=== PATIENT | female | born 1950 ===

== ENCOUNTER 2016-07-05 09:02 | Emergency (ER) | payer MEDICARE ==
[2016-07-05 09:02] VITALS: BMI 30.7
[2016-07-05 09:16] VITALS: BP 145/78; PULSE 85; RESP 18; TEMP 98.8; O2SAT 95
--- NOTE | 2016-07-05 10:37 | ED PDOC ---
HPI: Back Time Seen by Provider: 07/05/16 09:14 Chief Complaint (Nursing): Back Pain Chief Complaint (Provider): Back pain History Per: Patient History/Exam Limitations: no limitations Onset/Duration Of Symptoms: Days (1x) Current Symptoms Are (Timing): Still Present Severity: Moderate Previous Symptoms: Back Pain Associated Symptoms: None Exacerbating Factor(s): Movement (getting ice off of her car) Additional Complaint(s): 66 year old female patient with a pertinent medical history of chronic back pain presents to the ED with complaints of right lower back pain that radiates down her right leg. She thinks the exacerbating factor for her back pain was her taking ice off of her car yesterday. She reports taking tromadol 7 hours prior to arrival with minimal relief. She denies having any other associated symptoms including incontinence, numbness, dysuria, hematuria, and any trauma to her back. PMD: Raymond Sosa MD Past Medical History Reviewed: Historical Data, Nursing Documentation, Vital Signs Vital Signs: Last Vital Signs Temp 98.8 F 07/05/16 09:15 Pulse 85 07/05/16 09:15 Resp 18 07/05/16 09:15 BP 145/78 07/05/16 09:15 Pulse Ox 95 07/05/16 09:15 - Medical History PMH: Anxiety, Arthritis, Asthma (bronchial), Back Problems, COPD Denies: Diabetes, HIV, HTN, Chronic Kidney Disease Comment Only: Hyperlipidemia (denies) - Surgical History Surgical History: (x4) - Family History Family History: States: Unknown Family Hx - Social History Alcohol: None Drugs: Denies - Home Medications Home Medications: Ambulatory Orders Medication Instructions Recorded PARoxetine [Paxil] 10 mg PO DAILY #0 tab 03/01/15 ALPRAZolam [Xanax] 0.25 mg PO Q12 PRN #10 tab 09/27/15 Albuterol 0.083% [Albuterol 0.083% 2.5 mg IH Q4 PRN #20 neb 02/24/16 Inhal Mague (2.5 mg/3 ml) UD] Fluticasone/Salmeterol 250/50 1 inh INH Q12 06/15/16 [Advair Diskus 250/50] Azithromycin [Zithromax] 250 mg PO DAILY #6 tab 06/19/16 Methylprednisolone [Medrol Dose 4 mg PO ASDIR #21 mg 06/19/16 Pack (21 tabs)] Promethazine [Phenergan Syrup] 12.5 mg PO Q4H PRN #0 dose 06/19/16 - Allergies Allergies/Adverse Reactions: Allergies Allergy/AdvReac Type Severity Reaction Status Date / Time ceftriaxone sodium Allergy RASH Verified 07/05/16 09:10 [From Rocephin] moxifloxacin HCl Allergy RASH Verified 07/05/16 09:10 [From Avelox] Review of Systems ROS Statement: Except As Marked, All Systems Reviewed And Found Negative Genitourinary Female: Negative for: Dysuria, Incontinence, Hematuria Musculoskeletal: Positive for: Back Pain (lower right, radiates down to right leg) Neurological: Negative for: Numbness Physical Exam - Reviewed Nursing Documentation Reviewed: Yes Vital Signs Reviewed: Yes - Physical Exam Appears: Positive for: Well, Non-toxic, In Acute Distress (mild painful distress ) Head Exam: Positive for: ATRAUMATIC, NORMOCEPHALIC Skin: Positive for: Normal Color, Warm, Dry Eye Exam: Positive for: Normal appearance Back: Positive for: Vertebral Tenderness (right paraspinal tenderness down to right buttocks) Neurologic/Psych: Positive for: Alert, Oriented (3x) - ECG O2 Sat by Pulse Oximetry: 95 (RA) Pulse Ox Interpretation: Normal Medical Decision Making Medical Decision Makin:14 Initial impression: 66 year old female with chronic back pain has back pain. Differential diagnoses include but are not limited to acute on chronic back pain. Initial plan: * XRay lumbar spine complete * flexeril 10mg PO * toradol 15mg IM * reevaluation Of note: patient refuses XRay Scribe Attestation: Documented by Bernie Cheung, acting as a scribe for Marci Garcia MD. Provider Scribe Attestation: All medical record entries made by the Scribe were at my direction and personally dictated by me. I have reviewed the chart and agree that the record accurately reflects my personal performance of the history, physical exam, medical decision making, and the department course for this patient. I have also personally directed, reviewed, and agree with the discharge instructions and disposition.
== END 2016-07-05 11:56 | disposition home or self-care (01) ==
LOC: H.ER 09:02
DX: M54.9 Dorsalgia, unspecified (principal)
CPT/HCPCS: 96372; 99282; J1885

== ENCOUNTER 2016-08-30 10:19 | Emergency (ER) | payer MEDICARE ==
[2016-08-30] MEDS ORDERED: Albuterol-Ipratrop 3 mg / 0.5 (3 ml) UD IH STA ×3 (10:49→11:53)
[2016-08-30] MEDS ORDERED: Albuterol-Ipratrop 3 mg / 0.5 (3 ml) UD ONE ×2 (10:50→11:59)
--- NOTE | 2016-08-30 11:11 | RAD ---
HISTORY: cough COMPARISON: Chest x-ray performed 06/15/16 TECHNIQUE: Chest PA and lateral FINDINGS: Examination limited by habitus. LUNGS: Linear atelectasis, right medial midlung zone. No focal consolidation. Please note that chest x-ray has limited sensitivity for the detection of pulmonary masses. PLEURA: No significant pleural effusion identified. No definite pneumothorax . CARDIOVASCULAR: Heart size appears within normal limits. OSSEOUS STRUCTURES: Degenerative changes. Osseous demineralization. Kyphosis. VISUALIZED UPPER ABDOMEN: Elevation of the right hemidiaphragm. OTHER FINDINGS: None. IMPRESSION: Linear atelectasis, right medial midlung zone.
[2016-08-30 11:20] LABS: ALB/GLOB RATIO 1.3 (1.0-2.1); ALKALINE PHOSPHATASE 76 U/L (38-126); ALT/SGPT 24 U/L (9-52); AST/SGOT 24 U/L (14-36); BILIRUBIN,TOTAL 1.2 mg/dl (0.2-1.3); BLOOD UREA NITROGEN 9 mg/dl (7-17); CALCIUM 9.4 mg/dL (8.4-10.2); CARBON DIOXIDE 25 mmol/L (22-30); CHLORIDE 106 mmol/L (98-107); GFR AFRICAN-AMERICAN > 60; GLUCOSE,RANDOM 94 mg/dL (65-105); POTASSIUM 3.9 MMOL/L (3.6-5.0); SODIUM 140 mmol/l (132-148); TOTAL PROTEIN 7.5 G/DL (6.3-8.2)
--- NOTE | 2016-08-30 11:22 | ED PDOC ---
HPI: SOB/CHF/COPD Time Seen by Provider: 08/30/16 10:34 Chief Complaint (Nursing): Shortness Of Breath Chief Complaint (Provider): Shortness Of Breath History Per: Patient History/Exam Limitations: no limitations Onset/Duration Of Symptoms: Days (x2 days) Current Symptoms Are (Timing): Still Present Additional Complaint(s): 66 y/o female with a past medical history of asthma presents to the emergency department with a complaint of shortness of breath, productive cough, and yellow sputum x2 days. Denies fever. Past Medical History Reviewed: Historical Data, Nursing Documentation, Vital Signs Vital Signs: Last Vital Signs Temp 98.2 F 08/30/16 10:31 Pulse 89 08/30/16 10:31 Resp 22 08/30/16 10:52 BP 145/85 08/30/16 10:31 Pulse Ox 93 L 08/30/16 11:25 - Medical History PMH: Anxiety, Arthritis, Asthma (bronchial), Back Problems, COPD Denies: Diabetes, HIV, HTN, Chronic Kidney Disease Comment Only: Hyperlipidemia (denies) - Surgical History Surgical History: (x4) - Family History Family History: States: Unknown Family Hx - Social History Current smoker - smoking cessation education provided: No Alcohol: None Drugs: Denies - Home Medications Home Medications: Ambulatory Orders Medication Instructions Recorded PARoxetine [Paxil] 10 mg PO DAILY #0 tab 03/01/15 ALPRAZolam [Xanax] 0.25 mg PO Q12 PRN #10 tab 09/27/15 Albuterol 0.083% [Albuterol 0.083% 2.5 mg IH Q4 PRN #20 neb 02/24/16 Inhal Mague (2.5 mg/3 ml) UD] Fluticasone/Salmeterol 250/50 1 inh INH Q12 06/15/16 [Advair Diskus 250/50] Azithromycin [Zithromax] 250 mg PO DAILY #6 tab 06/19/16 Methylprednisolone [Medrol Dose 4 mg PO ASDIR #21 mg 06/19/16 Pack (21 tabs)] Promethazine [Phenergan Syrup] 12.5 mg PO Q4H PRN #0 dose 06/19/16 traMADol [Ultram] 50 mg PO HS PRN #5 tab 07/05/16 Azithromycin [Zithromax] 250 mg PO DAILY #6 tab 08/30/16 predniSONE [predniSONE Tab] 10 mg PO TID #15 tab 08/30/16 - Allergies Allergies/Adverse Reactions: Allergies Allergy/AdvReac Type Severity Reaction Status Date / Time ceftriaxone sodium Allergy RASH Verified 08/30/16 10:49 [From Rocephin] moxifloxacin HCl Allergy RASH Verified 08/30/16 10:49 [From Avelox] Review of Systems ROS Statement: Except As Marked, All Systems Reviewed And Found Negative Constitutional: Negative for: Fever Respiratory: Positive for: Cough (productive), Shortness of Breath, Sputum ( Yellow), Wheezing Physical Exam - Reviewed Nursing Documentation Reviewed: Yes Vital Signs Reviewed: Yes - Physical Exam Appears: Positive for: Non-toxic, No Acute Distress Head Exam: Positive for: ATRAUMATIC, NORMOCEPHALIC Skin: Positive for: Normal Color, Warm, Dry Respiratory: Positive for: Rhonchi (b/l), Wheezing (expiratory wheezing b/l). Negative for: Accessory Muscle Use, Respiratory Distress Neurologic/Psych: Positive for: Alert, Oriented - Laboratory Results Result Diagrams: 08/30/16 11:00 08/30/16 11:00 - ECG O2 Sat by Pulse Oximetry: 93 (RA) Pulse Ox Interpretation: Normal - Progress Re-evaluation Time: 12:51 Condition: Improved Medical Decision Making Medical Decision Making: Time: 10:34 Initial impression: Shortness of breath Initial plan: --COMP Metabolic Panel --CBC w/ differential --Duoneb 3 ml IH --Duoneb 3 ml IH --Methylprednisolone 125 mg IVP --Peak Flow Pre/Post TX --Peak Flow Pre/Post TX --Revaluation Time: 11:10 Chest X-ray FINDINGS: Examination limited by habitus. LUNGS: Linear atelectasis, right medial midlung zone. No focal consolidation. Please note that chest x-ray has limited sensitivity for the detection of pulmonary masses. PLEURA: No significant pleural effusion identified. No definite pneumothorax . CARDIOVASCULAR: Heart size appears within normal limits. OSSEOUS STRUCTURES: Degenerative changes. Osseous demineralization. Kyphosis. VISUALIZED UPPER ABDOMEN: Elevation of the right hemidiaphragm. OTHER FINDINGS: None. IMPRESSION: Linear atelectasis, right medial midlung zone. Scribe Attestation: Documented by Ania Agrawal, acting as a scribe for Samson Flores MD. Provider Scribe Attestation: All medical record entries made by the Scribe were at my direction and personally dictated by me. I have reviewed the chart and agree that the record accurately reflects my personal performance of the history, physical exam, medical decision making, and the department course for this patient. I have also personally directed, reviewed, and agree with the discharge instructions and disposition. Disposition - Clinical Impression Clinical Impression: Bronchitis, Asthma - Patient ED Disposition Is Patient to be Admitted: No - Disposition Referrals: Raymond Sosa MD [Staff Provider] - Disposition: Routine/Home Disposition Time: 12:51 Condition: FAIR Prescriptions: Azithromycin [Zithromax] 250 mg PO DAILY #6 tab predniSONE [predniSONE Tab] 10 mg PO TID #15 tab Instructions: Acute Bronchitis (ED), Bronchospasm (ED)
[2016-08-30 11:23] VITALS: BP 145/85; PULSE 89; RESP 22; TEMP 98.2; BMI 32.3
[2016-08-30 11:24] LABS: BASO % 0.4 % (0.0-2.0); EOS # 0.7 K/uL (0.0-0.7); EOS % 10.2 % (0.0-4.0); HEMATOCRIT 41.8 % (34.0-47.0); LYMPH # 1.8 K/uL (1.0-4.3); LYMPH % 25.3 % (20.0-40.0); MEAN CELL VOLUME 92.8 fl (81.0-99.0); MEAN CORPUSCULAR HEMOGLOBIN 30.9 pg (27.0-31.0); MEAN CORPUSCULAR HGB CONC 33.4 g/dL (33.0-37.0); MEAN PLATELET VOLUME 7.4 fl (7.2-11.7); MONO # 0.6 K/uL (0.0-0.8); MONO % 8.2 % (0.0-10.0); NEUT % 55.9 % (50.0-75.0); NRBC % 0.1 % (0.0-0.0); RED CELL DISTRIBUTION WIDTH 13.8 % (11.5-14.5); WHITE BLOOD COUNT 7.2 K/uL (4.8-10.8)
[2016-08-30 14:02] VITALS: O2SAT 95
--- NOTE | 2016-09-05 07:17 | CARD ---
APPROVED REPORT EKG Measurement Heart [id number] <Conclusion> Normal sinus rhythm Normal ECG
== END 2016-08-30 13:28 | disposition home or self-care (01) ==
LOC: H.ER 10:19
DX: J45.909 Unspecified asthma, uncomplicated (principal); J40 Bronchitis, not specified as acute or chronic; F41.9 Anxiety disorder, unspecified; R05 Cough; J44.9 Chronic obstructive pulmonary disease, unspecified
CPT/HCPCS: 71020; 80053; 85025; 94150; 94640; 96374; 99284; J2930

== ENCOUNTER 2016-09-21 09:08 | Emergency (ER) | payer MEDICARE ==
[2016-09-21 09:15] VITALS: BMI 32.3
[2016-09-21 09:17] VITALS: RESP 18; TEMP 98.2
[2016-09-21] MEDS ORDERED: Albuterol-Ipratrop 3 mg / 0.5 (3 ml) UD IH STA ×2 (09:59→10:06)
[2016-09-21] MEDS ORDERED: Albuterol-Ipratrop 3 mg / 0.5 (3 ml) UD INH STA (09:59)
--- NOTE | 2016-09-21 10:07 | ED PDOC ---
HPI: SOB/CHF/COPD Time Seen by Provider: 09/21/16 09:19 Chief Complaint (Nursing): Shortness Of Breath Chief Complaint (Provider): Dyspnea History Per: Patient History/Exam Limitations: no limitations Onset/Duration Of Symptoms: Days (Thurs) Current Symptoms Are (Timing): Still Present Additional Complaint(s): Cough, congestion, runny nose, nasal congestion. Dyspnea and wheezes. Tried nebulizer but still wheezing. No weakness, chest pain, fever. No abd pain, calf pain, headaches, dizziness. Has asthma and feels the same. Past Medical History Reviewed: Nursing Documentation, Vital Signs Vital Signs: Last Vital Signs Temp 98.2 F 09/21/16 09:16 Pulse 93 H 09/21/16 09:16 Resp 18 09/21/16 09:16 BP 152/87 H 09/21/16 09:16 Pulse Ox 93 L 09/21/16 10:09 - Medical History PMH: Anxiety, Arthritis, Asthma (bronchial), Back Problems Denies: Diabetes, HIV, HTN, Chronic Kidney Disease Comment Only: Hyperlipidemia (denies) - Surgical History Surgical History: (x4) - Family History Family History: States: Unknown Family Hx - Home Medications Home Medications: Ambulatory Orders Medication Instructions Recorded PARoxetine [Paxil] 10 mg PO DAILY #0 tab 03/01/15 ALPRAZolam [Xanax] 0.25 mg PO Q12 PRN #10 tab 09/27/15 Albuterol 0.083% [Albuterol 0.083% 2.5 mg IH Q4 PRN #20 neb 02/24/16 Inhal Mague (2.5 mg/3 ml) UD] Fluticasone/Salmeterol 250/50 1 inh INH Q12 06/15/16 [Advair Diskus 250/50] Azithromycin [Zithromax] 250 mg PO DAILY #6 tab 06/19/16 Methylprednisolone [Medrol Dose 4 mg PO ASDIR #21 mg 06/19/16 Pack (21 tabs)] Promethazine [Phenergan Syrup] 12.5 mg PO Q4H PRN #0 dose 06/19/16 traMADol [Ultram] 50 mg PO HS PRN #5 tab 07/05/16 Azithromycin [Zithromax] 250 mg PO DAILY #6 tab 08/30/16 predniSONE [predniSONE Tab] 10 mg PO TID #15 tab 08/30/16 Albuterol 0.5% [Albuterol 0.5% 2.5 mg IH Q6H PRN #3 neb 09/21/16 Inhal Mague (2.5 mg/0.5 ml) UD] Azithromycin [Zithromax] 250 mg PO DAILY 5 Days 09/21/16 Ibuprofen [Motrin] 600 mg PO TID 7 Days 09/21/16 predniSONE [predniSONE Tab] 20 mg PO BID 5 Days 09/21/16 - Allergies Allergies/Adverse Reactions: Allergies Allergy/AdvReac Type Severity Reaction Status Date / Time ceftriaxone sodium Allergy RASH Verified 09/21/16 09:18 [From Rocephin] moxifloxacin HCl Allergy RASH Verified 09/21/16 09:18 [From Avelox] Review of Systems ROS Statement: Except As Marked, All Systems Reviewed And Found Negative ENT: Positive for: Nose Discharge, Nose Congestion Respiratory: Positive for: Cough, Shortness of Breath, Sputum, Wheezing Physical Exam - Reviewed Nursing Documentation Reviewed: Yes Vital Signs Reviewed: Yes - Physical Exam Appears: Positive for: Well, Non-toxic, No Acute Distress Head Exam: Positive for: ATRAUMATIC, NORMAL INSPECTION, NORMOCEPHALIC Skin: Positive for: Normal Color, Warm, DRY Eye Exam: Positive for: EOMI, Normal appearance, PERRL ENT: Positive for: Nasal Congestion. Negative for: Pharyngeal Erythema, Tonsillar Exudate Neck: Positive for: Normal, Painless ROM, Supple Cardiovascular/Chest: Positive for: Regular Rate, Rhythm Respiratory: Positive for: Wheezing (b/l). Negative for: Accessory Muscle Use, Respiratory Distress Gastrointestinal/Abdominal: Positive for: Normal Exam, Bowel Sounds, Soft. Negative for: Tenderness Back: Positive for: Normal Inspection. Negative for: L CVA Tenderness, R CVA Tenderness Extremity: Positive for: Normal ROM. Negative for: Tenderness, Pedal Edema Neurologic/Psych: Positive for: Alert, Oriented - ECG ECG: Positive for: Interpreted By Me, Viewed By Me ECG Rhythm: Positive for: Normal QRS, Normal ST Segment, Sinus Rhythm O2 Sat by Pulse Oximetry: 93 Pulse Ox Interpretation: Normal - Progress ED Course And Treament: 1233: Stable. AAOx3. Pain free. Breathing better. No wheezes. FU with pcp. Disposition - Clinical Impression Clinical Impression: Asthma exacerbation, Bronchitis - Patient ED Disposition Is Patient to be Admitted: No Counseled Patient/Family Regarding: Studies Performed, Diagnosis, Need For Followup, Rx Given - Disposition Referrals: [facility] [Outside] - 09/22/16 Disposition: Routine/Home Disposition Time: 12:34 Condition: STABLE Additional Instructions: Return if not better in 3 days. Prescriptions: Albuterol 0.5% [Albuterol 0.5% Inhal Mague (2.5 mg/0.5 ml) UD] 2.5 mg IH Q6H PRN # 3 neb PRN Reason: Shortness Of Breath Azithromycin [Zithromax] 250 mg PO DAILY 5 Days Ibuprofen [Motrin] 600 mg PO TID 7 Days predniSONE [predniSONE Tab] 20 mg PO BID 5 Days Instructions: Acute Bronchitis (ED), Asthma (ED) Forms: [employer] Connect (Faroese)
[2016-09-21 13:02] VITALS: BP 145/82; PULSE 90; O2SAT 96
--- NOTE | 2016-09-21 14:57 | CARD ---
APPROVED REPORT EKG Measurement Heart [id number] <Conclusion> Normal sinus rhythm Normal ECG
== END 2016-09-21 13:00 | disposition home or self-care (01) ==
LOC: H.ER 09:08
DX: J40 Bronchitis, not specified as acute or chronic (principal); J45.909 Unspecified asthma, uncomplicated

== ENCOUNTER 2017-01-05 02:10 | Emergency (ER) | payer MEDICARE ==
[2017-01-05 02:23] VITALS: BP 137/70; PULSE 83; TEMP 98.6; O2SAT 92; BMI 31.1
[2017-01-05] MEDS ORDERED: Albuterol-Ipratrop 3 mg / 0.5 (3 ml) UD INH STA ×2 (02:33→02:36)
--- NOTE | 2017-01-05 02:35 | ED PDOC ---
HPI: Asthma Time Seen by Provider: 01/05/17 02:21 Chief Complaint (Provider): SOB History Per: Patient Additional Complaint(s): 66 yo female, PMH of Asthma and COPD, presents to ED with complaints of nasal congestion, cough productive with white sputum and SOB x 4 days, worse tonight. Pt used her nebulizer around 2300, then used her advair and proair without much relief which prompted ED visit. Past Medical History Reviewed: Nursing Documentation, Vital Signs Vital Signs: Last Vital Signs Temp 98.6 F 01/05/17 02:21 Pulse 83 01/05/17 02:21 Resp 18 01/05/17 02:21 BP 137/70 01/05/17 02:21 Pulse Ox 92 L 01/05/17 02:21 - Medical History PMH: Anxiety, Arthritis, Asthma (bronchial), Back Problems, COPD Denies: Diabetes, HIV, HTN, Chronic Kidney Disease Comment Only: Hyperlipidemia (denies) - Surgical History Surgical History: (x4) - Family History Family History: States: Unknown Family Hx - Home Medications Home Medications: Ambulatory Orders Medication Instructions Recorded PARoxetine [Paxil] 10 mg PO DAILY #0 tab 03/01/15 ALPRAZolam [Xanax] 0.25 mg PO Q12 PRN #10 tab 09/27/15 Albuterol 0.083% [Albuterol 0.083% 2.5 mg IH Q4 PRN #20 neb 02/24/16 Inhal Mague (2.5 mg/3 ml) UD] Fluticasone/Salmeterol 250/50 1 inh INH Q12 06/15/16 [Advair Diskus 250/50] Azithromycin [Zithromax] 250 mg PO DAILY #6 tab 06/19/16 Methylprednisolone [Medrol Dose 4 mg PO ASDIR #21 mg 06/19/16 Pack (21 tabs)] Promethazine [Phenergan Syrup] 12.5 mg PO Q4H PRN #0 dose 06/19/16 traMADol [Ultram] 50 mg PO HS PRN #5 tab 07/05/16 Azithromycin [Zithromax] 250 mg PO DAILY #6 tab 08/30/16 predniSONE [predniSONE Tab] 10 mg PO TID #15 tab 08/30/16 Albuterol 0.5% [Albuterol 0.5% 2.5 mg IH Q6H PRN #3 neb 09/21/16 Inhal Mague (2.5 mg/0.5 ml) UD] Azithromycin [Zithromax] 250 mg PO DAILY 5 Days tab 09/21/16 Ibuprofen [Motrin] 600 mg PO TID 7 Days tab 09/21/16 predniSONE [predniSONE Tab] 20 mg PO BID 5 Days tab 09/21/16 Azithromycin [Zithromax] 500 mg PO DAILY #6 tab 01/05/17 Methylprednisolone [Medrol Dose 4 mg PO DAILY #21 mg 01/05/17 Pack (21 tabs)] Promethazine HCl/Codeine 5 ml PO HS #80 ml 01/05/17 [Prometh-Codein 6.25-10 mg/5 ml] - Allergies Allergies/Adverse Reactions: Allergies Allergy/AdvReac Type Severity Reaction Status Date / Time ceftriaxone sodium Allergy RASH Verified 01/05/17 02:36 [From Rocephin] moxifloxacin HCl Allergy RASH Verified 01/05/17 02:36 [From Avelox] Review of Systems ROS Statement: Except As Marked, All Systems Reviewed And Found Negative Respiratory: Positive for: Cough, Shortness of Breath Physical Exam - Reviewed Nursing Documentation Reviewed: Yes Vital Signs Reviewed: Yes - Physical Exam Appears: Positive for: Well, Non-toxic, No Acute Distress Head Exam: Positive for: ATRAUMATIC, NORMAL INSPECTION, NORMOCEPHALIC Skin: Positive for: Normal Color, Warm, DRY Eye Exam: Positive for: EOMI, Normal appearance, PERRL ENT: Positive for: Normal ENT Inspection Neck: Positive for: Normal, Painless ROM Cardiovascular/Chest: Positive for: Regular Rate, Rhythm Respiratory: Positive for: Normal Breath Sounds, Wheezing (expiratory) Gastrointestinal/Abdominal: Positive for: Normal Exam, Bowel Sounds, Soft Back: Positive for: Normal Inspection Extremity: Positive for: Normal ROM Neurologic/Psych: Positive for: Alert, Oriented - ECG O2 Sat by Pulse Oximetry: 92 Medical Decision Making Medical Decision Making: Given duo neb x 2 and solumedrol 125 mg IM CXR: increased alireza hilar markings, as read by CAROL On re-eval, Lungs CTA bilaterally with full resolution of wheezing POX: 100% on RA Pt reports feeling greatly improved Disposition - Clinical Impression Clinical Impression: Bronchospasm, Upper respiratory infection - Patient ED Disposition Is Patient to be Admitted: No - Disposition Referrals: Raymond Sosa MD [Primary Care Provider] - Disposition: Routine/Home Disposition Time: 04:51 Condition: STABLE Prescriptions: Azithromycin [Zithromax] 500 mg PO DAILY #6 tab Methylprednisolone [Medrol Dose Pack (21 tabs)] 4 mg PO DAILY #21 mg Promethazine HCl/Codeine [Prometh-Codein 6.25-10 mg/5 ml] 5 ml PO HS #80 ml Instructions: Upper Respiratory Infection (ED), Bronchospasm (ED) - POA Present On Arrival: None
[2017-01-05 03:02] VITALS: RESP 17
--- NOTE | 2017-01-05 08:05 | RAD ---
HISTORY: Cough and shortness of breath. COMPARISON: 08/30/2016. TECHNIQUE: Chest PA and lateral FINDINGS: LUNGS: Hyperinflation, manifestations of COPD. No active pulmonary disease. PLEURA: No significant pleural effusion identified. No pneumothorax apparent. CARDIOVASCULAR: No radiographic findings to suggest acute or significant cardiovascular disease. OSSEOUS STRUCTURES: No significant abnormalities. VISUALIZED UPPER ABDOMEN: Normal. OTHER FINDINGS: None. IMPRESSION: No active disease. No significant interval change compared to the prior examination(s). No preliminary report provided by emergency department personnel.
== END 2017-01-05 04:40 | disposition home or self-care (01) ==
LOC: H.ER 02:10
DX: J06.9 Acute upper respiratory infection, unspecified (principal); J98.01 Acute bronchospasm; F41.9 Anxiety disorder, unspecified; J44.9 Chronic obstructive pulmonary disease, unspecified
CPT/HCPCS: 71020; 94640; 96374; 99282; J2930

== ENCOUNTER 2017-03-12 12:19 | Emergency (ER) | payer MEDICARE ==
[2017-03-12 12:19] VITALS: BMI 31.1
[2017-03-12 12:29] VITALS: BP 145/88; PULSE 93; RESP 18; TEMP 98.3; O2SAT 94
[2017-03-12] MEDS ORDERED: Albuterol-Ipratrop 3 mg / 0.5 (3 ml) UD IH STA ×2 (12:43→13:38)
--- NOTE | 2017-03-12 12:45 | ED PDOC ---
HPI: CCC, URI, Sore Throat Time Seen by Provider: 03/12/17 12:35 Chief Complaint (Nursing): Cough, Cold, Congestion History Per: Patient Onset/Duration Of Symptoms: Days (3) Current Symptoms Are (Timing): Still Present Associated Symptoms: Cough, Sputum. denies: Fever Severity: Mild Additional Complaint(s): Cough productive yellow, white sputum x 3 days assoc with wheezing despite using home nebulizer. No fever. Past Medical History Vital Signs: Last Vital Signs Temp 98.3 F 03/12/17 12:26 Pulse 93 H 03/12/17 12:26 Resp 18 03/12/17 12:26 BP 145/88 03/12/17 12:26 Pulse Ox 94 L 03/12/17 12:45 - Medical History PMH: Anxiety, Arthritis, Asthma (bronchial), Back Problems, COPD Denies: Diabetes, HIV, HTN, Chronic Kidney Disease Comment Only: Hyperlipidemia (denies) - Surgical History Surgical History: (x4) - Family History Family History: States: Unknown Family Hx - Home Medications Home Medications: Ambulatory Orders Medication Instructions Recorded PARoxetine [Paxil] 10 mg PO DAILY #0 tab 03/01/15 ALPRAZolam [Xanax] 0.25 mg PO Q12 PRN #10 tab 09/27/15 Albuterol 0.083% [Albuterol 0.083% 2.5 mg IH Q4 PRN #20 neb 02/24/16 Inhal Mague (2.5 mg/3 ml) UD] Fluticasone/Salmeterol 250/50 1 inh INH Q12 06/15/16 [Advair Diskus 250/50] Azithromycin [Zithromax] 250 mg PO DAILY #6 tab 06/19/16 Methylprednisolone [Medrol Dose 4 mg PO ASDIR #21 mg 06/19/16 Pack (21 tabs)] Promethazine [Phenergan Syrup] 12.5 mg PO Q4H PRN #0 dose 06/19/16 traMADol [Ultram] 50 mg PO HS PRN #5 tab 07/05/16 Azithromycin [Zithromax] 250 mg PO DAILY #6 tab 08/30/16 predniSONE [predniSONE Tab] 10 mg PO TID #15 tab 08/30/16 Albuterol 0.5% [Albuterol 0.5% 2.5 mg IH Q6H PRN #3 neb 09/21/16 Inhal Mague (2.5 mg/0.5 ml) UD] Azithromycin [Zithromax] 250 mg PO DAILY 5 Days tab 09/21/16 Ibuprofen [Motrin] 600 mg PO TID 7 Days tab 09/21/16 predniSONE [predniSONE Tab] 20 mg PO BID 5 Days tab 09/21/16 Azithromycin [Zithromax] 500 mg PO DAILY #6 tab 01/05/17 Methylprednisolone [Medrol Dose 4 mg PO DAILY #21 mg 01/05/17 Pack (21 tabs)] Promethazine HCl/Codeine 5 ml PO HS #80 ml 01/05/17 [Prometh-Codein 6.25-10 mg/5 ml] Azithromycin [Zithromax] 250 mg PO DAILY #6 tab 03/12/17 Prednisone 50 mg PO DAILY #5 tab 03/12/17 - Allergies Allergies/Adverse Reactions: Allergies Allergy/AdvReac Type Severity Reaction Status Date / Time ceftriaxone sodium Allergy RASH Verified 01/05/17 02:36 [From Rocephin] moxifloxacin HCl Allergy RASH Verified 01/05/17 02:36 [From Avelox] Review of Systems ROS Statement: Except As Marked, All Systems Reviewed And Found Negative Constitutional: Negative for: Fever Respiratory: Positive for: Cough, Wheezing Physical Exam - Reviewed Nursing Documentation Reviewed: Yes Vital Signs Reviewed: Yes - Physical Exam Appears: Positive for: Non-toxic, No Acute Distress Head Exam: Positive for: ATRAUMATIC, NORMAL INSPECTION, NORMOCEPHALIC Skin: Positive for: Normal Color, Warm, DRY Eye Exam: Positive for: EOMI, Normal appearance, PERRL ENT: Positive for: Normal ENT Inspection Neck: Positive for: Normal, Painless ROM Cardiovascular/Chest: Positive for: Regular Rate, Rhythm Respiratory: Positive for: Rhonchi, Wheezing. Negative for: Respiratory Distress Gastrointestinal/Abdominal: Positive for: Normal Exam, Bowel Sounds, Soft Back: Positive for: Normal Inspection Extremity: Positive for: Normal ROM Neurologic/Psych: Positive for: Alert, Oriented - ECG O2 Sat by Pulse Oximetry: 94 Disposition - Clinical Impression Clinical Impression: Bronchitis - Patient ED Disposition Is Patient to be Admitted: No Counseled Patient/Family Regarding: Studies Performed, Diagnosis, Need For Followup, Rx Given - Disposition Referrals: Raymond Sosa MD [Family Provider] - Disposition: Routine/Home Disposition Time: 13:49 Condition: FAIR Prescriptions: Azithromycin [Zithromax] 250 mg PO DAILY #6 tab Prednisone 50 mg PO DAILY #5 tab Instructions: Acute Bronchitis (ED) Forms: [employer] Connect (Khmer)
[2017-03-12] MEDS ORDERED: Albuterol-Ipratrop 3 mg / 0.5 (3 ml) UD ONE ×2 (12:48→13:43)
--- NOTE | 2017-03-12 13:34 | RAD ---
HISTORY: cough COMPARISON: Chest radiograph dated 01/05/2017. TECHNIQUE: Chest PA and lateral FINDINGS: LUNGS: No active pulmonary disease. PLEURA: No significant pleural effusion identified. No pneumothorax apparent. CARDIOVASCULAR: Normal. OSSEOUS STRUCTURES: Unchanged. VISUALIZED UPPER ABDOMEN: Normal. OTHER FINDINGS: Small hiatal hernia. IMPRESSION: No active disease.
== END 2017-03-12 14:00 | disposition home or self-care (01) ==
LOC: H.ER 12:19
DX: J44.9 Chronic obstructive pulmonary disease, unspecified (principal); F41.9 Anxiety disorder, unspecified

== ENCOUNTER 2017-04-04 11:17 | Emergency (ER) | payer MEDICARE ==
[2017-04-04 11:17] VITALS: BMI 31.1
[2017-04-04 11:24] VITALS: BP 152/85; PULSE 88; RESP 18; TEMP 97; O2SAT 95
--- NOTE | 2017-04-04 12:17 | ED PDOC ---
HPI: CCC, URI, Sore Throat Time Seen by Provider: 04/04/17 11:31 Chief Complaint (Nursing): Flu-like Symptoms Chief Complaint (Provider): Cough, Congestion, Sore throat, Fever History Per: Patient History/Exam Limitations: no limitations Onset/Duration Of Symptoms: Days (x1) Current Symptoms Are (Timing): Still Present Additional Complaint(s): Carla Florez is a 67 year old female with a past medical history of Bronchial Asthma for which she normally uses her Nebulizer, anxiety, arthritis, COPD, and back problems and a past surgical history of a presenting to the ED for an evaluation of cough, congestion, sore throat, and fever occurring since last night. The patient also reports associated mucous present with her cough. She denies any difficulty breathing, chest pain, or wheezing. PMD: Raymond Sosa MD Past Medical History Vital Signs: Last Vital Signs Temp 97.0 F L 04/04/17 11:24 Pulse 88 04/04/17 11:24 Resp 18 04/04/17 11:24 BP 152/85 H 04/04/17 11:24 Pulse Ox 95 04/04/17 12:35 - Medical History PMH: Anxiety, Arthritis, Asthma (bronchial), Back Problems, COPD Denies: Diabetes, HIV, HTN, Chronic Kidney Disease Comment Only: Hyperlipidemia (denies) - Surgical History Surgical History: (x4) - Family History Family History: States: No Known Family Hx - Social History Current smoker - smoking cessation education provided: No Ex-Smoker (has not smoked in the last 12 months): No Alcohol: None Drugs: Denies - Home Medications Home Medications: Ambulatory Orders Medication Instructions Recorded PARoxetine [Paxil] 10 mg PO DAILY #0 tab 03/01/15 ALPRAZolam [Xanax] 0.25 mg PO Q12 PRN #10 tab 09/27/15 Fluticasone/Salmeterol 250/50 1 inh INH Q12 06/15/16 [Advair Diskus 250/50] Azithromycin [Zithromax] 250 mg PO DAILY #6 tab 06/19/16 Methylprednisolone [Medrol Dose 4 mg PO ASDIR #21 mg 06/19/16 Pack (21 tabs)] Promethazine [Phenergan Syrup] 12.5 mg PO Q4H PRN #0 dose 06/19/16 traMADol [Ultram] 50 mg PO HS PRN #5 tab 07/05/16 Azithromycin [Zithromax] 250 mg PO DAILY #6 tab 08/30/16 predniSONE [predniSONE Tab] 10 mg PO TID #15 tab 08/30/16 Albuterol 0.5% [Albuterol 0.5% 2.5 mg IH Q6H PRN #3 neb 09/21/16 Inhal Mague (2.5 mg/0.5 ml) UD] Azithromycin [Zithromax] 250 mg PO DAILY 5 Days tab 09/21/16 Ibuprofen [Motrin] 600 mg PO TID 7 Days tab 09/21/16 predniSONE [predniSONE Tab] 20 mg PO BID 5 Days tab 09/21/16 Azithromycin [Zithromax] 500 mg PO DAILY #6 tab 01/05/17 Methylprednisolone [Medrol Dose 4 mg PO DAILY #21 mg 01/05/17 Pack (21 tabs)] Promethazine HCl/Codeine 5 ml PO HS #80 ml 01/05/17 [Prometh-Codein 6.25-10 mg/5 ml] Albuterol 0.083% [Albuterol 0.083% 2.5 mg IH Q8 #1 neb 03/12/17 Inhal Mague (2.5 mg/3 ml) UD] Azithromycin [Zithromax] 250 mg PO DAILY #6 tab 03/12/17 Prednisone 50 mg PO DAILY #5 tab 03/12/17 Albuterol 0.083% [Albuterol 0.083% 2.5 mg IH Q4 PRN #20 neb 04/04/17 Inhal Mague (2.5 mg/3 ml) UD] Ipratropium 0.02% [Atrovent] 2.5 ml IH Q4 #20 neb 04/04/17 - Allergies Allergies/Adverse Reactions: Allergies Allergy/AdvReac Type Severity Reaction Status Date / Time ceftriaxone sodium Allergy RASH Verified 01/05/17 02:36 [From Rocephin] moxifloxacin HCl Allergy RASH Verified 01/05/17 02:36 [From Avelox] Review of Systems ROS Statement: Except As Marked, All Systems Reviewed And Found Negative Constitutional: Positive for: Fever ENT: Positive for: Nose Congestion, Throat Pain (sore throat) Cardiovascular: Negative for: Chest Pain Respiratory: Positive for: Cough (with mucous present). Negative for: Wheezing , Other (no difficulty breathing) Physical Exam - Reviewed Nursing Documentation Reviewed: Yes Vital Signs Reviewed: Yes - Physical Exam Appears: Positive for: Non-toxic, No Acute Distress Head Exam: Positive for: ATRAUMATIC, NORMOCEPHALIC Skin: Positive for: Normal Color, Warm, Dry Eye Exam: Positive for: Normal appearance, EOMI ENT: Positive for: Pharynx Is (redness and erythema of tonsils ), Pharyngeal Erythema (with minimal amount of exudates above tonsils). Negative for: Other ( no peritonsillar abscess) Neck: Positive for: Normal, Painless ROM Cardiovascular/Chest: Positive for: Regular Rate, Rhythm. Negative for: Edema, Murmur Respiratory: Positive for: Normal Breath Sounds. Negative for: Respiratory Distress Gastrointestinal/Abdominal: Positive for: Normal Exam, Soft. Negative for: Tenderness Back: Positive for: Normal Inspection Extremity: Positive for: Normal ROM. Negative for: Deformity Neurologic/Psych: Positive for: Alert, Oriented (x3). Negative for: Motor/ Sensory Deficits - ECG O2 Sat by Pulse Oximetry: 95 (RA) Pulse Ox Interpretation: Normal Medical Decision Making Medical Decision Making: Time: 11:31 Impression: URI, Tonsillitis, possible rapid onset of strep Plan: * Throat Culture * Influenza A B * Rapid Strep Group A Antigen * Reevaluation Scribe Attestation: Documented by Daniela Espinoza, acting as a scribe for Cj Vallecillo MD. Provider Scribe Attestation: All medical record entries made by the Scribe were at my direction and personally dictated by me. I have reviewed the chart and agree that the record accurately reflects my personal performance of the history, physical exam, medical decision making, and the department course for this patient. I have also personally directed, reviewed, and agree with the discharge instructions and disposition. Disposition - Clinical Impression Clinical Impression: URI (upper respiratory infection), Tonsillitis - Patient ED Disposition Is Patient to be Admitted: No Doctor Will See Patient In The: Office Counseled Patient/Family Regarding: Studies Performed, Diagnosis, Need For Followup - Disposition Referrals: Raymond Sosa MD [Staff Provider] - Disposition: Routine/Home Disposition Time: 13:30 Condition: GOOD Additional Instructions: Take tylenol and motrin for pain and fever. Take mucinex for cough. Continue taking your medications. Follow up with your PCP in 2-3 days. Prescriptions: Albuterol 0.083% [Albuterol 0.083% Inhal Mague (2.5 mg/3 ml) UD] 2.5 mg IH Q4 PRN #20 neb PRN Reason: Wheezing Ipratropium 0.02% [Atrovent] 2.5 ml IH Q4 #20 neb Instructions: Upper Respiratory Infection (ED)
== END 2017-04-04 14:05 | disposition home or self-care (01) ==
LOC: H.ER 11:17
DX: J06.9 Acute upper respiratory infection, unspecified (principal); J03.90 Acute tonsillitis, unspecified; F41.9 Anxiety disorder, unspecified; J44.9 Chronic obstructive pulmonary disease, unspecified; M19.90 Unspecified osteoarthritis, unspecified site; Z87.891 Personal history of nicotine dependence

== ENCOUNTER 2017-05-13 03:30 | Inpatient (IN) | payer MEDICARE ==
[2017-05-13 03:31] VITALS: BMI 31.1
[2017-05-13] MEDS ORDERED: Sodium Chloride 0.9% 1,000 ML IV STA (04:01)
[2017-05-13] MEDS ORDERED: Sodium Chloride 0.9% 2,000 ML IV STA (04:17)
--- NOTE | 2017-05-13 04:39 | ED PDOC ---
HPI: CCC, URI, Sore Throat Time Seen by Provider: 05/13/17 03:50 Chief Complaint (Nursing): Fever Chief Complaint (Provider): Fever, Cough History Per: Patient History/Exam Limitations: no limitations Onset/Duration Of Symptoms: Days (x 2 weeks) Current Symptoms Are (Timing): Still Present Additional Complaint(s): Carla Florez is a 67-year-old female who presents to the Emergency Room complaining of 2 weeks of fever, cough, congestion, and runny nose. Patient states symptoms have been worsening, and she is on day 3 of Augmentin with no relief. States her child has also been sick at home. PMD: Dr. Raymond Sosa Past Medical History Reviewed: Historical Data, Nursing Documentation, Vital Signs Vital Signs: Last Vital Signs Temp 103.0 F H 05/13/17 04:54 Pulse 140 H 05/13/17 04:44 Resp 18 05/13/17 03:58 BP 134/78 05/13/17 03:58 Pulse Ox 91 L 05/13/17 04:44 - Medical History PMH: Anxiety, Arthritis, Asthma (bronchial), Back Problems, COPD Denies: Diabetes, HIV, HTN, Chronic Kidney Disease Comment Only: Hyperlipidemia (denies) - Surgical History Surgical History: (x4) - Family History Family History: States: Unknown Family Hx - Home Medications Home Medications: Ambulatory Orders Medication Instructions Recorded PARoxetine [Paxil] 10 mg PO DAILY #0 tab 03/01/15 ALPRAZolam [Xanax] 0.25 mg PO Q12 PRN #10 tab 09/27/15 Fluticasone/Salmeterol 250/50 1 inh INH Q12 06/15/16 [Advair Diskus 250/50] Azithromycin [Zithromax] 250 mg PO DAILY #6 tab 06/19/16 Methylprednisolone [Medrol Dose 4 mg PO ASDIR #21 mg 06/19/16 Pack (21 tabs)] Promethazine [Phenergan Syrup] 12.5 mg PO Q4H PRN #0 dose 06/19/16 traMADol [Ultram] 50 mg PO HS PRN #5 tab 07/05/16 Azithromycin [Zithromax] 250 mg PO DAILY #6 tab 08/30/16 predniSONE [predniSONE Tab] 10 mg PO TID #15 tab 08/30/16 Albuterol 0.5% [Albuterol 0.5% 2.5 mg IH Q6H PRN #3 neb 09/21/16 Inhal Mague (2.5 mg/0.5 ml) UD] Azithromycin [Zithromax] 250 mg PO DAILY 5 Days tab 09/21/16 Ibuprofen [Motrin] 600 mg PO TID 7 Days tab 09/21/16 predniSONE [predniSONE Tab] 20 mg PO BID 5 Days tab 09/21/16 Azithromycin [Zithromax] 500 mg PO DAILY #6 tab 01/05/17 Methylprednisolone [Medrol Dose 4 mg PO DAILY #21 mg 01/05/17 Pack (21 tabs)] Promethazine HCl/Codeine 5 ml PO HS #80 ml 01/05/17 [Prometh-Codein 6.25-10 mg/5 ml] Albuterol 0.083% [Albuterol 0.083% 2.5 mg IH Q8 #1 neb 03/12/17 Inhal Mague (2.5 mg/3 ml) UD] Azithromycin [Zithromax] 250 mg PO DAILY #6 tab 03/12/17 Prednisone 50 mg PO DAILY #5 tab 03/12/17 Albuterol 0.083% [Albuterol 0.083% 2.5 mg IH Q4 PRN #20 neb 04/04/17 Inhal Mague (2.5 mg/3 ml) UD] Ipratropium 0.02% [Atrovent] 2.5 ml IH Q4 #20 neb 04/04/17 - Allergies Allergies/Adverse Reactions: Allergies Allergy/AdvReac Type Severity Reaction Status Date / Time ceftriaxone sodium Allergy RASH Verified 01/05/17 02:36 [From Rocephin] moxifloxacin HCl Allergy RASH Verified 01/05/17 02:36 [From Avelox] Review of Systems ROS Statement: Except As Marked, All Systems Reviewed And Found Negative Constitutional: Positive for: Fever ENT: Positive for: Nose Discharge, Nose Congestion Respiratory: Positive for: Cough Gastrointestinal: Negative for: Vomiting, Diarrhea Physical Exam - Reviewed Nursing Documentation Reviewed: Yes Vital Signs Reviewed: Yes - Physical Exam Appears: Positive for: Non-toxic, No Acute Distress Head Exam: Positive for: ATRAUMATIC, NORMOCEPHALIC Skin: Positive for: Normal Color, Warm (to touch) Eye Exam: Positive for: EOMI, Normal appearance, PERRL ENT: Positive for: Tonsillar Exudate. Negative for: Pharyngeal Erythema Neck: Positive for: Normal, Painless ROM, Supple Cardiovascular/Chest: Positive for: Tachycardia (with regular rhythm) Respiratory: Positive for: Rales (scattered), Wheezing (scattered) Gastrointestinal/Abdominal: Positive for: Normal Exam, Soft. Negative for: Tenderness Back: Positive for: Normal Inspection. Negative for: L CVA Tenderness, R CVA Tenderness, Vertebral Tenderness Extremity: Positive for: Normal ROM. Negative for: Pedal Edema, Deformity Neurologic/Psych: Positive for: Alert, Oriented - Laboratory Results Result Diagrams: 05/13/17 04:43 05/13/17 04:43 - ECG ECG Rhythm: Positive for: Sinus Tachycardia. Negative for: ST/T Changes Rate: 140 O2 Sat by Pulse Oximetry: 91 (RA) Pulse Ox Interpretation: Abnormal Medical Decision Making Medical Decision Making: Time: 4:12 Initial Impression: Pneumonia vs. Strep vs. Influenza Initial Plan: --EKG --CMP --Lactic Acid --Magnesium --Phosphorous --CBC w/ differential --PTT --Prothrombin time --Chest X-Ray --Blood Culture --Urine Culture --Influenza A B --Rapid strep --Urinalysis --NS IV 2000 ml at 1000 mls/hr --Toradol 30mg IVP --Tylenol 650mg PO --Zofran 4mg Inj IVP --Prednisone 40mg PO --Reevaluation 525AM: PT. has L sided PNA on xray, persistently tachycardic (121 bmp) despite fluids, and hypoxic (currently 90% on RA) despite nebulizer. Will admit for sepsis, outpatient failure of PNA (has taken 4 doses of Augmentin), persisent tachycardia, and hypoxia. Scribe Attestation: Documented by Deb Silva, acting as a scribe for Cayden Petersen MD Provider Scribe Attestation: All medical record entries made by the Scribe were at my direction and personally dictated by me. I have reviewed the chart and agree that the record accurately reflects my personal performance of the history, physical exam, medical decision making, and the department course for this patient. I have also personally directed, reviewed, and agree with the discharge instructions and disposition. Disposition - Clinical Impression Clinical Impression: Pneumonia - Disposition Referrals: Raymond Sosa MD [Primary Care Provider] - Disposition Time: 05:26 Condition: GUARDED Forms: [employer] ([employer])
[2017-05-13 04:49] LABS: BASO % 0.2 % (0.0-2.0); EOS % 0.4 % (0.0-4.0); HEMOGLOBIN 12.7 g/dL (12.0-16.0); LYMPH # 0.5 K/uL (1.0-4.3); LYMPH % 5.9 % (20.0-40.0); MEAN CELL VOLUME 92.5 fl (81.0-99.0); MEAN CORPUSCULAR HEMOGLOBIN 29.8 pg (27.0-31.0); MEAN CORPUSCULAR HGB CONC 32.2 g/dL (33.0-37.0); MEAN PLATELET VOLUME 8.4 fl (7.2-11.7); MONO # 1.1 K/uL (0.0-0.8); MONO % 11.7 % (0.0-10.0); NEUT # 7.6 K/uL (1.8-7.0); NEUT % 81.8 % (50.0-75.0); PLATELET COUNT 290 K/uL (130-400); RBC 4.27 Mil/uL (3.80-5.20); RED CELL DISTRIBUTION WIDTH 14.4 % (11.5-14.5); WHITE BLOOD COUNT 9.3 K/uL (4.8-10.8)
[2017-05-13 04:57] LABS: VENOUS BLOOD GAS BASE EXCESS 3.2 mmol/L (0.0-2.0); VENOUS BLOOD GAS PCO2 42 mmHg (40-60); VENOUS BLOOD GAS PO2 30 mm/Hg (30-55); VENOUS BLOOD PH 7.43 (7.32-7.43)
[2017-05-13 05:10] LABS: CALCIUM 8.7 mg/dL (8.4-10.2); GFR AFRICAN-AMERICAN > 60; GFR NON-AFRICAN AMERICAN > 60
[2017-05-13 05:14] LABS: INR 1.1 (0.9-1.2); PARTIAL THROMBOPLASTIN TIME 30.9 Seconds (25.6-37.1); PROTHROMBIN TIME 12.2 Seconds (9.8-13.1)
[2017-05-13] MEDS ORDERED: levoFLOXacin 750 mg in D5W 750 MG/150 ML BAG IVPB STA (05:26)
[2017-05-13 05:47] LABS: ALB/GLOB RATIO 1.1 (1.0-2.1); ALBUMIN 4.2 g/dL (3.5-5.0); ALT/SGPT 25 U/L (9-52); AST/SGOT 69 U/L (14-36); BLOOD UREA NITROGEN 14 mg/dl (7-17); MAGNESIUM 1.9 MG/DL (1.6-2.3)
[2017-05-13 07:16] LABS: ANISOCYTOSIS SLIGHT; BANDS 4 % (0-2); BURR CELLS MODERATE; LYMPHOCYTE 3 % (20-50); MONOCYTE 7 % (0-10); NEUTROPHIL 85 % (42-75); PLATELET ESTIMATE NORMAL (NORMAL); REACTIVE LYMPHOCYTES 1 % (0-0); TOTAL CELLS COUNTED 100
[2017-05-13 07:17] LABS: LARGE PLATELETS PRESENT
[2017-05-13 08:18] LABS: VENOUS BLOOD GAS BASE EXCESS -1.5 mmol/L (0.0-2.0); VENOUS BLOOD GAS PCO2 41 mmHg (40-60); VENOUS BLOOD GAS PO2 44 mm/Hg (30-55); VENOUS BLOOD PH 7.37 (7.32-7.43)
[2017-05-13 08:29] LABS: SQUAMOUS EPITHIAL < 1 /hpf (0-5); URINE BILIRUBIN NEGATIVE (NEGATIVE); URINE BLOOD NEGATIVE (NEGATIVE); URINE CLARITY CLEAR (Clear); URINE COLOR STRAW (YELLOW); URINE GLUCOSE (UA) NEG (Normal); URINE HYALINE CAST 0-2 /hpf (0-2); URINE LEUKOCYTE ESTERASE NEG Leu/uL (Negative); URINE NITRATE NEGATIVE (NEGATIVE); URINE PROTEIN NEGATIVE (NEGATIVE); URINE UROBILINOGEN 0.2-1.0 mg/dL (0.2-1.0)
[2017-05-13] MEDS ORDERED: Dextrose 5%/0.45% NS 1,000 ML IV SCH (11:15)
[2017-05-13] MEDS ORDERED: methylPREDNISolone 60 MG in Sodium Chloride 0.9% 50 ML IVPB SCH (11:15)
[2017-05-13] MEDS ORDERED: Sodium Chloride 3% for Inhalation 4 ML VIAL.NEB IH PRN (12:00)
--- NOTE | 2017-05-13 13:13 | HP ---
HISTORY OF PRESENT ILLNESS: Ms. Florez is a 67-year-old female who was admitted via the Emergency Room after she presented with fever, cough, lung congestion, runny nose, body aches and pains. For the past three days, symptoms have worsened despite her taking Augmentin. She had been seen in the office two days prior to presentation with similar symptoms and was placed on Augmentin for upper respiratory tract infection, but symptoms however worsened. She had been taking [id number] medications and ice packs of home, but temperature went up to 103 degrees Fahrenheit and she, therefore, sought help in the Emergency Room. PAST MEDICAL HISTORY: Remarkable for anxiety, arthritis, asthma and depression. FAMILY HISTORY: Unremarkable. 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 REVIEW OF SYSTEMS: Remarkable for occasional cough and shortness of breath due to asthma. PHYSICAL EXAMINATION GENERAL: The patient is alert and oriented. VITAL SIGNS: Her temperature is 103 degrees Fahrenheit on my admission, pulse 140, respiratory rate 18, blood pressure 134/78, and O2 sat of 91% on room air. SKIN: Shows fair turgor. HEENT: Pupils equal, reactive to light and accommodation. Mouth shows fair hygiene with mucous engorgement of pharynx. NECK: JVP flat. LUNGS: Poor aeration bilaterally with audible wheezing. HEART: Tachycardic. BREASTS: Normal. ABDOMEN: Soft, nontender. No organomegaly. EXTREMIITES: Shows no edema or cyanosis. CENTRAL NERVOUS SYSTEM: Grossly intact. LABORATORY DATA: Remarkable for chest x-ray, official report pending, but reviewed by me shows what appears to be left lower lobe pulmonary infiltrate; influenza type A and B, positive for type A; group A strep negative on throat culture. WBC 9.3, hemoglobin 12.7, platelet count of 290,000. Sodium 136, potassium 4.4, BUN 14, creatinine 0.7, ALT 25, AST 69. Venous blood gas: pH 7.37, pCO2 41, pO2 of 44, O2 sat of 86%. Urinalysis unremarkable. EKG official report pending. IMPRESSION 1. Pneumonia, left base, probably community acquired. 2. Acute hemophilus influenzae infection. 3. Acute exacerbation of asthma secondary to flu. 4. Tachycardia secondary to dehydration and secondary to fever and flu. 5. History of anxiety with depression. 6. History of arthritis. PLAN: IV hydration and adjust her antipyretics, IV antibiotics, as well as bronchodilators, Tamiflu. We will obtain infectious disease evaluation, lucio culture is already done. Further therapy will depend on findings. We will presently keep the patient on full liquid diet because of nausea. Advance diet as tolerated. Raymond Sosa MD <
--- NOTE | 2017-05-13 13:44 | RAD ---
HISTORY: Cough, fever. COMPARISON: 03/12/2017 TECHNIQUE: Chest PA and lateral FINDINGS: LUNGS: Left lower lobe infiltrate best seen on the lateral view. PLEURA: No significant pleural effusion identified. No pneumothorax apparent. CARDIOVASCULAR: Normal. OSSEOUS STRUCTURES: No significant abnormalities. VISUALIZED UPPER ABDOMEN: Normal. OTHER FINDINGS: None. IMPRESSION: Acute left lower lobe infiltrate/pneumonia. Concordant results with the preliminary interpretation rendered by the emergency department physician procedure.
[2017-05-13] MEDS: Albuterol-Ipratrop 3 mg / 0.5 (3 ml) UD INH SCH ×2 (14:10→21:05)
[2017-05-13] MEDS ORDERED: Albuterol-Ipratrop 3 mg / 0.5 (3 ml) UD ONE (14:15)
[2017-05-14] MEDS: Albuterol-Ipratrop 3 mg / 0.5 (3 ml) UD INH SCH ×3 (01:05→14:24)
[2017-05-14 06:12] LABS: MEAN CELL VOLUME 92.8 fl (81.0-99.0); MEAN CORPUSCULAR HEMOGLOBIN 30.6 pg (27.0-31.0); RBC 3.93 Mil/uL (3.80-5.20); RED CELL DISTRIBUTION WIDTH 13.9 % (11.5-14.5); WHITE BLOOD COUNT 10.3 K/uL (4.8-10.8)
[2017-05-14 07:13] LABS: BLOOD UREA NITROGEN 11 mg/dl (7-17); CALCIUM 8.4 mg/dL (8.4-10.2); GFR AFRICAN-AMERICAN > 60; GFR NON-AFRICAN AMERICAN > 60
[2017-05-14] MEDS: Promethazine 12.5 mg/10 ml Syrup PO PRN ×2 (08:58→23:13)
--- NOTE | 2017-05-14 09:41 | CARD ---
APPROVED REPORT EKG Measurement Heart [id number] <Conclusion> Sinus tachycardia Otherwise normal ECG
--- NOTE | 2017-05-14 09:53 | CP.PCM.PN ---
Subjective - Date & Time of Evaluation Date of Evaluation: 05/14/17 Time of Evaluation: 09:53 - Subjective Subjective: FEELS BETTER SOB AND COUGH IMPROVING Objective - Vital Signs/Intake and Output Vital Signs (last 24 hours): Temp Pulse Resp BP Pulse Ox 98.3 F 82 18 135/78 95 05/14/17 08:01 05/14/17 08:01 05/14/17 08:01 05/14/17 08:01 05/14/17 08:01 - Medications Medications: Current Medications Acetaminophen (Tylenol 325mg Tab) 650 mg PO Q4 PRN PRN Reason: Fever >100.4 F Albuterol/Ipratropium (Duoneb 3 Mg/0.5 Mg (3 Ml) Ud) 3 ml INH RQ6 [facility] Last Admin: 05/14/17 08:18 Dose: 3 ml Alprazolam (Xanax) 0.25 mg PO Q12 PRN PRN Reason: Anxiety Stop: 05/20/17 11:18 Last Admin: 05/13/17 20:52 Dose: 0.25 mg Levofloxacin/Dextrose (Levaquin 500mg) 500 mg in 100 mls @ 100 mls/hr IVPB DAILY [facility] PRN Reason: Protocol Dextrose/Sodium Chloride (Dextrose 5%/0.45% Ns 1000 Ml) 1,000 mls @ 60 mls/hr IV .[id number] [facility] Stop: 05/14/17 11:15 Last Admin: 05/13/17 12:02 Dose: 60 mls/hr Vancomycin HCl 1 gm/ Sodium (Chloride) 250 mls @ 166.667 mls/hr IVPB Q12H [facility]ENE PRN Reason: Protocol Last Admin: 05/14/17 00:01 Dose: 166.667 mls/hr Methylprednisolone (Solu-Medrol) 60 mg IV Q12 [facility] Last Admin: 05/14/17 08:54 Dose: 60 mg Ondansetron HCl (Zofran Inj) 4 mg IVP Q6 PRN PRN Reason: Nausea/Vomiting Oseltamivir Phosphate (Tamiflu Cap) 75 mg PO BID [facility]ENE PRN Reason: Protocol Last Admin: 05/14/17 08:55 Dose: 75 mg Paroxetine HCl (Paxil) 10 mg PO DAILY [facility] Last Admin: 05/14/17 08:55 Dose: 10 mg Promethazine HCl (Phenergan Syrup) 12.5 mg PO Q6 PRN PRN Reason: Cough Last Admin: 05/14/17 08:58 Dose: 12.5 mg - Labs Labs: 05/14/17 05:15 05/14/17 05:10 PT 12.2 Seconds (9.8-13.1) 05/13/17 04:43 INR 1.1 (0.9-1.2) 05/13/17 04:43 APTT 30.9 Seconds (25.6-37.1) 05/13/17 04:43 - Constitutional Appears: No Acute Distress - Head Exam Head Exam: ATRAUMATIC, NORMAL INSPECTION, NORMOCEPHALIC - Eye Exam Eye Exam: EOMI, Normal appearance, PERRL Pupil Exam: NORMAL ACCOMODATION, PERRL - ENT Exam ENT Exam: Mucous Membranes Moist, Normal Exam - Neck Exam Neck Exam: Full ROM, Normal Inspection. absent: Lymphadenopathy - Respiratory Exam Respiratory Exam: Decreased Breath Sounds, Prolonged Expiratory Phase, Wheezes, NORMAL BREATHING PATTERN - Cardiovascular Exam Cardiovascular Exam: REGULAR RHYTHM, +S1, +S2. absent: Murmur - GI/Abdominal Exam GI & Abdominal Exam: Soft, Normal Bowel Sounds. absent: Tenderness - Rectal Exam Rectal Exam: NORMAL INSPECTION - Extremities Exam Extremities Exam: Full ROM, Normal Capillary Refill, Normal Inspection. absent : Joint Swelling, Pedal Edema - Back Exam Back Exam: NORMAL INSPECTION - Neurological Exam Neurological Exam: Alert, Awake, CN II-XII Intact, Normal Gait, Oriented x3 - Psychiatric Exam Psychiatric exam: Normal Affect, Normal Mood - Skin Skin Exam: Dry, Intact, Normal Color, Warm Assessment and Plan - Assessment and Plan (Free Text) Assessment: PNEUMONIA FLU ANXIETY WITH DEPRESSION TACHYCARDIA--IMPROVED Plan: CONTINUE PRESENT RX TRANSFER TO MED/SURG
[2017-05-14] MEDS: levoFLOXacin 500 mg in D5W 500 MG/100 ML BAG IVPB SCH (10:27)
--- NOTE | 2017-05-14 19:41 | CP.PCM.CON ---
History of Present Illness - History of Present Illness History of Present Illness: Carla Florez is a 67-year-old female who presents to the Emergency Room complaining of 2 weeks of fever, cough, congestion, and runny nose. Patient states symptoms have been worsening, and she is on day 3 of Augmentin with no relief. States her child has also been sick at home. admitted with acute pneumonia in setting of COPD/ influenza - Medical History PMH: Anxiety, Arthritis, Asthma (bronchial), Back Problems, COPD Denies: Diabetes, HIV, HTN, Chronic Kidney Disease Comment Only: Hyperlipidemia (denies) Review of Systems - Constitutional Constitutional: As Per HPI, Fever - EENT Eyes: absent: As Per HPI, Blind Spots, Blurred Vision, Change in Vision, Decreased Night Vision, Diplopia, Discharge, Dry Eye, Exophthalmos, Floaters, Irritation, Itchy Eyes, Loss of Peripheral Vision, Pain, Photophobia, Requires Corrective Lenses, Sees Flashes, Spots in Vision, Tunnel Vision, Other Visual Disturbances, Loss of Vision, Other Ears: absent: As Per HPI, Decreased Hearing, Ear Discharge, Ear Pain, Tinnitus, Abnormal Hearing, Disequilibrium, Dizziness, Other Nose/Mouth/Throat: absent: As Per HPI, Epistaxis, Nasal Congestion, Nasal Discharge, Nasal Obstruction, Nasal Trauma, Nose Pain, Post Nasal Drip, Sinus Pain, Sinus Pressure, Bleeding Gums, Change in Voice, Dental Pain, Dry Mouth, Dysphagia, Halitosis, Hoarsness, Lip Swelling, Mouth Lesions, Mouth Pain, Odynophagia, Sore Throat, Throat Swelling, Tongue Swelling, Facial Pain, Neck Pain, Neck Mass, Other - Breasts Breasts: absent: As Per HPI, Change in Shape, Mass, Pain, Nipple Discharge, Nipple Inversion, Skin Changes, Swelling, Other - Cardiovascular Cardiovascular: As Per HPI - Respiratory Respiratory: As Per HPI, Cough, Dyspnea. absent: Hemoptysis - Gastrointestinal Gastrointestinal: absent: As Per HPI, Abdominal Pain, Belching, Bloating, Change in Bowel Habits, Change in Stool Character, Coffee Ground Emesis, Constipation, Cramping, Diarrhea, Dyspepsia, Dysphagia, Early Satiety, Excessive Flatus, Fecal Incontinence, Heartburn, Hematemesis, Hematochezia, Loose Stools, Melena, Nausea, Odynophagia, Temesmus, Vomiting, Other - Genitourinary Genitourinary: absent: As Per HPI, Change in Urinary Stream, Difficulty Urinating, Dysuria, Flank Pain, Hematuria, Pyuria, Nocturia, Urinary Incontinence, Urinary Frequency, Urinary Hesitance, Urinary Urgency, Voiding Freq/Small Amts, Freq UTI, Hx Renal/Bladder Calculi, Hx /Renal Surgery, Bladder Distension, Other - Reproductive: Female Reproductive:Female: absent: As Per HPI, Amenorrhea, Amenorrhea/ Control, Currently Menstual, Cycle <21 Days, Cycle >35 Days, Cycle Variable, Menses 1-7 Days, Menses >/= 8 Days, Menses Variable, Cycle > 4 Weeks Between, No Menses for 6 Months, Heavy Menses, Light Menses, Normal Menses, Spotting Between Cycles , S/P Hysterectomy, Menopausal, Post Menopausal, Premenarche, Abnormal Vaginal Bleeding, Dysmenorrhea, Dyspareunia, Genital Lesions, Genital Pruritis, Pelvic Pain, Prolapse Symptoms, Sexual Dysfunction, Vaginal Discharge, Vaginal Dryness , Vaginal Odor, Vaginal Pruritis, Other - Menstruation Menstruation: absent: As Per HPI, Amenorrhea, Amenorrhea/ Control, Currently Menstual, Cycle <21 Days, Cycle >35 Days, Cycle Variable, Menses 1-7 Days, Menses >/= 8 Days, Menses Variable, Cycle > 4 Weeks Between, No Menses for 6 Months, Heavy Menses, Light Menses, Normal Menses, Spotting Between Cycles , S/P Hysterectomy, Menopausal, Post Menopausal, Premenarche, Abnormal Vaginal Bleeding, Dysmenorrhea, Other - Musculoskeletal Musculoskeletal: absent: As Per HPI, Abnormal Gait, Arthralgias, Atrophy, Back Pain, Deformity, Joint Swelling, Limited Range of Motion, Loss of Height, Muscle Cramps, Muscle Weakness, Myalgias, Neck Pain, Numbness, Radiating Pain into Limb, Stiffness, Tingling, Other - Integumentary Integumentary: absent: As Per HPI, Acne, Alopecia, Bleeding Lesions, Change in Hair, Change in Nails, Change in Pigmentation, Changing Lesions, Dry Skin, Erythema, Furuncle, Hirsutism, Lesions, New Lesions, Non-Healing Lesions, Photosensitivity, Pruritus, Rash, Skin Pain, Skin Ulcer, Sores, Striae, Swelling , Unusual Bruising, Wounds, Jaundice, Other - Neurological Neurological: absent: As Per HPI, Abnormal Gait, Abnormal Hearing, Abnormal Movements, Abnormal Speech, Behavioral Changes, Burning Sensations, Confusion, Convulsions, Disequilibrium, Dizziness, Numbness, Focal Weakness, Frequent Falls , Headaches, Lack of Coordination, Loss of Vision, Memory Loss, Paresthesias, Radicular Pain, Restless Legs, Sensory Deficit, Syncope, Tingling, Tremor, Vertigo, Weakness, Other Visual Disturbances, Other - Psychiatric Psychiatric: absent: As Per HPI, Abnormal Sleep Pattern, Anhedonia, Anxiety, Auditory Hallucinations, Behavioral Changes, Change in Appetite, Change in Libido, Confusion, Depression, Difficulty Concentrating, Hallucinations, Homicidal Ideation, Hopelessness, Irritability, Memory Loss, Mood Swings, Panic Attacks, Paranoia, Suicidal Ideation, Visual Hallucinations, Tactile Hallucinations, Other - Endocrine Endocrine: absent: As Per HPI, Change in Body Appearance, Change in Libido, Cold Intolorance, Deepening of Voice, Excessive Sweating, Fatigue, Flushing, Heat Intolorance, Increase in Ring/Shoe/Hat Size, Palpitations, Polydipsia, Polyphagia, Polyuria, Other - Hematologic/Lymphatic Hematologic: absent: As Per HPI, Easy Bleeding, Easy Bruising, Lymphadenopathy, Other Past Patient History - Infectious Disease Hx of Infectious Diseases: None - Past Medical History & Family History Past Medical History?: Yes - Past Social History Smoking Status: Never Smoked - CARDIAC Hx Cardiac Disorders: No Hx Hypertension: No - PULMONARY Hx Asthma: Yes (bronchial) Hx Chronic Obstructive Pulmonary Disease (COPD): Yes - NEUROLOGICAL Hx Neurological Disorder: No - HEENT Hx HEENT Problems: No - RENAL Hx Chronic Kidney Disease: No - ENDOCRINE/METABOLIC Hx Endocrine Disorders: No - HEMATOLOGICAL/ONCOLOGICAL Hx Blood Disorders: No Hx Human Immunodeficiency Virus (HIV): No - INTEGUMENTARY Hx Dermatological Problems: No - MUSCULOSKELETAL/RHEUMATOLOGICAL Hx Arthritis: Yes Hx Falls: No Hx Herniated Disk: Yes - GASTROINTESTINAL Hx Gastrointestinal Disorders: No - GENITOURINARY/GYNECOLOGICAL Hx Genitourinary Disorders: No - PSYCHIATRIC Hx Anxiety: Yes Hx Depression: Yes Hx Substance Use: No - SURGICAL HISTORY Hx Surgeries: Yes Hx Section: Yes (x 4) - ANESTHESIA Hx Anesthesia: Yes Hx Anesthesia Reactions: No Hx Malignant Hyperthermia: No Has any member of the family had a problem w/ anesthesia?: No Meds Allergies/Adverse Reactions: Allergies Allergy/AdvReac Type Severity Reaction Status Date / Time ceftriaxone sodium Allergy RASH Verified 01/05/17 02:36 [From Rocephin] moxifloxacin HCl Allergy RASH Verified 01/05/17 02:36 [From Avelox] - Medications Medications: Current Medications Acetaminophen (Tylenol 325mg Tab) 650 mg PO Q4 PRN PRN Reason: Fever >100.4 F Albuterol/Ipratropium (Duoneb 3 Mg/0.5 Mg (3 Ml) Ud) 3 ml INH RQ6 A[facility]ENE Last Admin: 05/14/17 14:24 Dose: 3 ml Alprazolam (Xanax) 0.25 mg PO Q12 PRN PRN Reason: Anxiety Stop: 05/20/17 11:18 Last Admin: 05/13/17 20:52 Dose: 0.25 mg Levofloxacin/Dextrose (Levaquin 500mg) 500 mg in 100 mls @ 100 mls/hr IVPB DAILY ARLENE PRN Reason: Protocol Last Admin: 05/14/17 10:27 Dose: 100 mls/hr Vancomycin HCl 1 gm/ Sodium (Chloride) 250 mls @ 166.667 mls/hr IVPB Q12H A[facility]ENE PRN Reason: Protocol Last Admin: 05/14/17 10:02 Dose: 166.667 mls/hr Methylprednisolone (Solu-Medrol) 60 mg IV Q12 ARLENE Last Admin: 05/14/17 08:54 Dose: 60 mg Ondansetron HCl (Zofran Inj) 4 mg IVP Q6 PRN PRN Reason: Nausea/Vomiting Oseltamivir Phosphate (Tamiflu Cap) 75 mg PO BID ARLENE PRN Reason: Protocol Last Admin: 05/14/17 17:37 Dose: 75 mg Paroxetine HCl (Paxil) 10 mg PO DAILY [facility]ENE Last Admin: 05/14/17 08:55 Dose: 10 mg Promethazine HCl (Phenergan Syrup) 12.5 mg PO Q6 PRN PRN Reason: Cough Last Admin: 05/14/17 08:58 Dose: 12.5 mg Physical Exam - Constitutional Appears: Non-toxic, Chronically Ill - Head Exam Head Exam: NORMOCEPHALIC - Eye Exam Eye Exam: PERRL. absent: Scleral icterus - ENT Exam ENT Exam: Mucous Membranes Dry, Normal External Ear Exam - Neck Exam Neck exam: Negative for: Lymphadenopathy - Respiratory Exam Respiratory Exam: Decreased Breath Sounds, Rhonchi - Cardiovascular Exam Cardiovascular Exam: REGULAR RHYTHM, +S1, +S2 - GI/Abdominal Exam GI & Abdominal Exam: Diminished Bowel Sounds, Soft. absent: Guarding, Rebound, Rigid, Tenderness - Rectal Exam Rectal Exam: Deferred - Exam Exam: NORMAL INSPECTION - Extremities Exam Extremities exam: Negative for: pedal edema - Back Exam Back exam: absent: CVA tenderness (L), CVA tenderness (R) - Neurological Exam Neurological exam: Alert, CN II-XII Intact, Oriented x3, Reflexes Normal - Psychiatric Exam Psychiatric exam: Depressed - Skin Skin Exam: Dry, Intact Results - Vital Signs Recent Vital Signs: Last Vital Signs Temp 98.0 F 05/14/17 18:30 Pulse 85 05/14/17 18:30 Resp 18 05/14/17 18:30 BP 125/76 05/14/17 18:30 Pulse Ox 95 05/14/17 18:30 - Labs Result Diagrams: 05/14/17 05:15 05/14/17 05:10 Labs: Laboratory Results - last 24 hr 05/14/17 05/14/17 05:10 05:15 WBC 10.3 RBC 3.93 Hgb 12.0 Hct 36.5 MCV 92.8 MCH 30.6 MCHC 33.0 RDW 13.9 Plt Count 227 Sodium 140 Potassium 4.2 Chloride 106 Carbon Dioxide 28 Anion Gap 10 BUN 11 Creatinine 0.6 L Est GFR ( Amer) > 60 Est GFR (Non-Af Amer) > 60 Random Glucose 127 H Calcium 8.4 Assessment & Plan (1) Influenza A Status: Acute (2) Influenza A Status: Acute (3) Pneumonia Status: Acute (4) Acute bronchitis with chronic obstructive pulmonary disease (COPD) Status: Acute (5) Asthma exacerbation Status: Acute (6) COPD exacerbation Status: Acute - Assessment and Plan (Free Text) Assessment: cont iv antibiotics and tamiflu
[2017-05-15] MEDS: Albuterol-Ipratrop 3 mg / 0.5 (3 ml) UD INH SCH ×4 (01:05→20:45)
[2017-05-15] MEDS: levoFLOXacin 500 mg in D5W 500 MG/100 ML BAG IVPB SCH (12:18)
--- NOTE | 2017-05-15 12:27 | RAD ---
HISTORY: PNEUMONIA/FLU COMPARISON: Comparison chest dated 05/15/2017 TECHNIQUE: Chest PA and lateral FINDINGS: LUNGS: Left lower lobe infiltrate with linear scarring. . There also appears be some mild right basilar atelectasis or scarring. PLEURA: No significant pleural effusion identified. No pneumothorax apparent. CARDIOVASCULAR: Normal. OSSEOUS STRUCTURES: No significant abnormalities. VISUALIZED UPPER ABDOMEN: Normal. OTHER FINDINGS: None. IMPRESSION: Left lower lobe infiltrate with linear scarring. . There also appears be some mild right basilar atelectasis or scarring.
--- NOTE | 2017-05-15 13:42 | CP.PCM.PN ---
Subjective - Date & Time of Evaluation Date of Evaluation: 05/15/17 Time of Evaluation: 13:42 - Subjective Subjective: FEELS BETTER COUGH AND SOB LESS Objective - Vital Signs/Intake and Output Vital Signs (last 24 hours): Temp Pulse Resp BP Pulse Ox 98.1 F 93 H 20 127/77 93 L 05/15/17 08:36 05/15/17 08:36 05/15/17 08:36 05/15/17 08:36 05/15/17 08:36 - Medications Medications: Current Medications Acetaminophen (Tylenol 325mg Tab) 650 mg PO Q4 PRN PRN Reason: Fever >100.4 F Albuterol/Ipratropium (Duoneb 3 Mg/0.5 Mg (3 Ml) Ud) 3 ml INH RQ6 A[facility]ENE Last Admin: 05/15/17 13:16 Dose: 3 ml Alprazolam (Xanax) 0.25 mg PO Q12 PRN PRN Reason: Anxiety Stop: 05/20/17 11:18 Last Admin: 05/14/17 23:20 Dose: 0.25 mg Levofloxacin/Dextrose (Levaquin 500mg) 500 mg in 100 mls @ 100 mls/hr IVPB DAILY [facility]ENE PRN Reason: Protocol Last Admin: 05/15/17 12:18 Dose: 100 mls/hr Vancomycin HCl 1 gm/ Sodium (Chloride) 250 mls @ 166.667 mls/hr IVPB Q12H A[facility]ENE PRN Reason: Protocol Last Admin: 05/15/17 11:04 Dose: 166.667 mls/hr Methylprednisolone (Solu-Medrol) 60 mg IV Q12 A[facility]ENE Last Admin: 05/15/17 08:51 Dose: 60 mg Ondansetron HCl (Zofran Inj) 4 mg IVP Q6 PRN PRN Reason: Nausea/Vomiting Oseltamivir Phosphate (Tamiflu Cap) 75 mg PO BID [facility]ENE PRN Reason: Protocol Last Admin: 05/15/17 08:49 Dose: 75 mg Paroxetine HCl (Paxil) 10 mg PO DAILY [facility] Last Admin: 05/15/17 08:49 Dose: 10 mg Promethazine HCl (Phenergan Syrup) 12.5 mg PO Q6 PRN PRN Reason: Cough Last Admin: 05/14/17 23:13 Dose: 12.5 mg - Labs Labs: 05/14/17 05:15 02/01/18 05:10 PT 12.2 Seconds (9.8-13.1) 05/13/17 04:43 INR 1.1 (0.9-1.2) 05/13/17 04:43 APTT 30.9 Seconds (25.6-37.1) 05/13/17 04:43 - Constitutional Appears: No Acute Distress - Head Exam Head Exam: ATRAUMATIC, NORMAL INSPECTION, NORMOCEPHALIC - Eye Exam Eye Exam: EOMI, Normal appearance, PERRL Pupil Exam: NORMAL ACCOMODATION, PERRL - ENT Exam ENT Exam: Mucous Membranes Moist, Normal Exam - Neck Exam Neck Exam: Full ROM, Normal Inspection. absent: Lymphadenopathy - Respiratory Exam Respiratory Exam: Clear to Ausculation Bilateral, NORMAL BREATHING PATTERN - Cardiovascular Exam Cardiovascular Exam: REGULAR RHYTHM, +S1, +S2. absent: Murmur - GI/Abdominal Exam GI & Abdominal Exam: Soft, Normal Bowel Sounds. absent: Tenderness - Rectal Exam Rectal Exam: NORMAL INSPECTION - Extremities Exam Extremities Exam: Full ROM, Normal Capillary Refill, Normal Inspection. absent : Joint Swelling, Pedal Edema - Back Exam Back Exam: NORMAL INSPECTION - Neurological Exam Neurological Exam: Alert, Awake, CN II-XII Intact, Normal Gait, Oriented x3 - Psychiatric Exam Psychiatric exam: Normal Affect, Normal Mood - Skin Skin Exam: Dry, Intact, Normal Color, Warm Assessment and Plan - Assessment and Plan (Free Text) Assessment: PNEUMONIA FLU Plan: CONTINUE CURRENT RX REPEAT CXR
--- NOTE | 2017-05-15 14:18 | CP.PCM.PN ---
Subjective - Date & Time of Evaluation Date of Evaluation: 05/15/17 Time of Evaluation: 08:00 - Subjective Subjective: less cough alert awake NAD Objective - Vital Signs/Intake and Output Vital Signs (last 24 hours): Temp Pulse Resp BP Pulse Ox 98.1 F 93 H 20 127/77 93 L 05/15/17 08:36 05/15/17 08:36 05/15/17 08:36 05/15/17 08:36 05/15/17 08:36 - Medications Medications: Current Medications Acetaminophen (Tylenol 325mg Tab) 650 mg PO Q4 PRN PRN Reason: Fever >100.4 F Albuterol/Ipratropium (Duoneb 3 Mg/0.5 Mg (3 Ml) Ud) 3 ml INH RQ6 ARLENE Last Admin: 05/15/17 13:16 Dose: 3 ml Alprazolam (Xanax) 0.25 mg PO Q12 PRN PRN Reason: Anxiety Stop: 05/20/17 11:18 Last Admin: 05/14/17 23:20 Dose: 0.25 mg Levofloxacin/Dextrose (Levaquin 500mg) 500 mg in 100 mls @ 100 mls/hr IVPB DAILY [facility]ENE PRN Reason: Protocol Last Admin: 05/15/17 12:18 Dose: 100 mls/hr Vancomycin HCl 1 gm/ Sodium (Chloride) 250 mls @ 166.667 mls/hr IVPB Q12H A[facility]ENE PRN Reason: Protocol Last Admin: 05/15/17 11:04 Dose: 166.667 mls/hr Methylprednisolone (Solu-Medrol) 60 mg IV Q12 A[facility]ENE Last Admin: 05/15/17 08:51 Dose: 60 mg Ondansetron HCl (Zofran Inj) 4 mg IVP Q6 PRN PRN Reason: Nausea/Vomiting Oseltamivir Phosphate (Tamiflu Cap) 75 mg PO BID [facility]ENE PRN Reason: Protocol Last Admin: 05/15/17 08:49 Dose: 75 mg Paroxetine HCl (Paxil) 10 mg PO DAILY [facility] Last Admin: 05/15/17 08:49 Dose: 10 mg Promethazine HCl (Phenergan Syrup) 12.5 mg PO Q6 PRN PRN Reason: Cough Last Admin: 05/14/17 23:13 Dose: 12.5 mg - Labs Labs: 05/14/17 05:15 05/14/17 05:10 PT 12.2 Seconds (9.8-13.1) 05/13/17 04:43 INR 1.1 (0.9-1.2) 05/13/17 04:43 APTT 30.9 Seconds (25.6-37.1) 05/13/17 04:43 - Constitutional Appears: Non-toxic, Chronically Ill - Head Exam Head Exam: NORMOCEPHALIC - Eye Exam Eye Exam: PERRL - ENT Exam ENT Exam: Mucous Membranes Dry - Neck Exam Neck Exam: absent: Lymphadenopathy - Respiratory Exam Respiratory Exam: Decreased Breath Sounds - Cardiovascular Exam Cardiovascular Exam: REGULAR RHYTHM - GI/Abdominal Exam GI & Abdominal Exam: Distended - Rectal Exam Rectal Exam: Deferred Assessment and Plan (1) Influenza A Status: Acute (2) Influenza A Status: Acute (3) Pneumonia Status: Acute (4) Acute bronchitis with chronic obstructive pulmonary disease (COPD) Status: Acute (5) Asthma exacerbation Status: Acute (6) COPD exacerbation Status: Acute
[2017-05-16] MEDS: Albuterol-Ipratrop 3 mg / 0.5 (3 ml) UD INH SCH ×4 (01:03→19:25)
[2017-05-16 07:07] LABS: HDL CHOLESTEROL 44 MG/DL (30-70)
[2017-05-16 07:17] LABS: LDL CHOLESTEROL 92 mg/dL (0-129)
[2017-05-16] MEDS: levoFLOXacin 500 mg in D5W 500 MG/100 ML BAG IVPB SCH (09:50)
--- NOTE | 2017-05-16 11:10 | RAD ---
HISTORY: PNEUMONIA COMPARISON: Chest radiograph dated 05/15/2017. TECHNIQUE: Chest PA and lateral FINDINGS: LUNGS: Stable left lower lobe linear scarring No active pulmonary disease. PLEURA: No significant pleural effusion identified. No pneumothorax apparent. CARDIOVASCULAR: Normal. OSSEOUS STRUCTURES: Unchanged. VISUALIZED UPPER ABDOMEN: Normal. OTHER FINDINGS: None. IMPRESSION: No active disease.
--- NOTE | 2017-05-16 11:16 | CP.PCM.PN ---
Subjective - Date & Time of Evaluation Date of Evaluation: 05/16/17 Time of Evaluation: 11:16 - Subjective Subjective: SOB AND COUGH IMPROVING FEVER IMPROVED Objective - Vital Signs/Intake and Output Vital Signs (last 24 hours): Temp Pulse Resp BP Pulse Ox 99.2 F 83 20 121/55 L 96 05/16/17 08:35 05/16/17 08:35 05/16/17 08:35 05/16/17 08:35 05/16/17 08:35 - Medications Medications: Current Medications Acetaminophen (Tylenol 325mg Tab) 650 mg PO Q4 PRN PRN Reason: Fever >100.4 F Albuterol/Ipratropium (Duoneb 3 Mg/0.5 Mg (3 Ml) Ud) 3 ml INH RQ6 ARLENE Last Admin: 05/16/17 08:14 Dose: 3 ml Alprazolam (Xanax) 0.25 mg PO Q12 PRN PRN Reason: Anxiety Stop: 05/20/17 11:18 Last Admin: 05/15/17 23:13 Dose: 0.25 mg Levofloxacin/Dextrose (Levaquin 500mg) 500 mg in 100 mls @ 100 mls/hr IVPB DAILY A[facility]ENE PRN Reason: Protocol Last Admin: 05/16/17 09:50 Dose: 100 mls/hr Vancomycin HCl 1 gm/ Sodium (Chloride) 250 mls @ 166.667 mls/hr IVPB Q12H A[facility]ENE PRN Reason: Protocol Last Admin: 05/16/17 09:52 Dose: 166.667 mls/hr Methylprednisolone 40 mg/ (Sodium Chloride) 50 mls @ 100 mls/hr IVPB DAILY [facility] Ondansetron HCl (Zofran Inj) 4 mg IVP Q6 PRN PRN Reason: Nausea/Vomiting Oseltamivir Phosphate (Tamiflu Cap) 75 mg PO BID ARLENE PRN Reason: Protocol Last Admin: 05/16/17 09:53 Dose: 75 mg Paroxetine HCl (Paxil) 10 mg PO DAILY [facility] Last Admin: 05/15/17 08:49 Dose: 10 mg Promethazine HCl (Phenergan Syrup) 12.5 mg PO Q6 PRN PRN Reason: Cough Last Admin: 05/14/17 23:13 Dose: 12.5 mg - Labs Labs: 05/14/17 05:15 05/14/17 05:10 PT 12.2 Seconds (9.8-13.1) 05/13/17 04:43 INR 1.1 (0.9-1.2) 05/13/17 04:43 APTT 30.9 Seconds (25.6-37.1) 05/13/17 04:43 - Constitutional Appears: No Acute Distress - Head Exam Head Exam: ATRAUMATIC, NORMAL INSPECTION, NORMOCEPHALIC - Eye Exam Eye Exam: EOMI, Normal appearance, PERRL Pupil Exam: NORMAL ACCOMODATION, PERRL - ENT Exam ENT Exam: Mucous Membranes Moist, Normal Exam - Neck Exam Neck Exam: Full ROM, Normal Inspection. absent: Lymphadenopathy - Respiratory Exam Respiratory Exam: Prolonged Expiratory Phase, NORMAL BREATHING PATTERN - Cardiovascular Exam Cardiovascular Exam: REGULAR RHYTHM, +S1, +S2. absent: Murmur - GI/Abdominal Exam GI & Abdominal Exam: Soft, Normal Bowel Sounds. absent: Tenderness - Rectal Exam Rectal Exam: NORMAL INSPECTION - Extremities Exam Extremities Exam: Full ROM, Normal Capillary Refill, Normal Inspection. absent : Joint Swelling, Pedal Edema - Back Exam Back Exam: NORMAL INSPECTION - Neurological Exam Neurological Exam: Alert, Awake, CN II-XII Intact, Normal Gait, Oriented x3 - Psychiatric Exam Psychiatric exam: Normal Affect, Normal Mood - Skin Skin Exam: Dry, Intact, Normal Color, Warm Assessment and Plan - Assessment and Plan (Free Text) Assessment: PNEUMONIA--CLINICALLY IMPROVING DESPITE CXR FINDINGS ASTHMA FLU Plan: TAPER STEROIDS D/C IN AM IF STABLE
[2017-05-17 00:35] VITALS: O2SAT 94
[2017-05-17] MEDS: Albuterol-Ipratrop 3 mg / 0.5 (3 ml) UD INH SCH ×2 (01:06→07:51)
[2017-05-17] MEDS: Promethazine 12.5 mg/10 ml Syrup PO PRN (07:00)
[2017-05-17 08:16] VITALS: BP 148/89; PULSE 72; RESP 20; TEMP 98
[2017-05-17] MEDS: levoFLOXacin 500 mg in D5W 500 MG/100 ML BAG IVPB SCH (08:48)
[2017-05-17] MEDS ORDERED: methylPREDNISolone 40 MG in Sodium Chloride 0.9% 50 ML IVPB SCH (09:00)
[2017-05-17] MEDS ORDERED: MethylPREDNISolone 40 mg Vial IVP SCH (09:00)
--- NOTE | 2017-05-17 10:44 | CP.PCM.DIS ---
Provider - Provider Date of Admission: 05/13/17 05:24 Attending physician: Raymond Zaldivar MD Primary care physician: Raymond Zaldivar MD Time Spent in preparation of Discharge (in minutes): 35 Diagnosis - Discharge Diagnosis (1) Influenza A Status: Acute (2) Pneumonia Status: Acute (3) Anxiety Status: Acute (4) Asthma exacerbation Status: Acute Hospital Course - Lab Results Lab Results: Micro Results 05/13/17 04:35 Blood Blood Culture - Preliminary NO GROWTH AFTER 4 DAYS 05/13/17 14:29 Sputum Gram Stain - Final 05/13/17 14:29 Sputum Sputum Culture - Final NORMAL ORAL ANALIA 05/13/17 08:00 Urine Urine Culture - Final No Growth (<1,000 CFU/ML) 05/13/17 04:43 Throat Group A Strep Throat Culture - Final NO BETA STREP GROUP A ISOLATED. Most Recent Lab Values WBC 10.3 K/uL (4.8-10.8) 05/14/17 05:15 RBC 3.93 Mil/uL (3.80-5.20) 05/14/17 05:15 Hgb 12.0 g/dL (12.0-16.0) 05/14/17 05:15 Hct 36.5 % (34.0-47.0) 05/14/17 05:15 MCV 92.8 fl (81.0-99.0) 05/14/17 05:15 MCH 30.6 pg (27.0-31.0) 05/14/17 05:15 MCHC 33.0 g/dL (33.0-37.0) 05/14/17 05:15 RDW 13.9 % (11.5-14.5) 05/14/17 05:15 Plt Count 227 K/uL (130-400) 05/14/17 05:15 MPV 8.4 fl (7.2-11.7) 05/13/17 04:43 Neut % (Auto) 81.8 % (50.0-75.0) H 05/13/17 04:43 Lymph % (Auto) 5.9 % (20.0-40.0) L 05/13/17 04:43 Whitley % (Auto) 11.7 % (0.0-10.0) H 05/13/17 04:43 Eos % (Auto) 0.4 % (0.0-4.0) 05/13/17 04:43 Baso % (Auto) 0.2 % (0.0-2.0) 05/13/17 04:43 Neut # (Auto) 7.6 K/uL (1.8-7.0) H 05/13/17 04:43 Lymph # (Auto) 0.5 K/uL (1.0-4.3) L 05/13/17 04:43 Whitley # (Auto) 1.1 K/uL (0.0-0.8) H 05/13/17 04:43 Eos # (Auto) 0.0 K/uL (0.0-0.7) 05/13/17 04:43 Baso # (Auto) 0.0 K/uL (0.0-0.2) 05/13/17 04:43 Neutrophils % (Manual) 85 % (42-75) H 05/13/17 04:43 Band Neutrophils % 4 % (0-2) H 05/13/17 04:43 Lymphocytes % (Manual) 3 % (20-50) L 05/13/17 04:43 Reactive Lymphs % 1 % (0-0) H 05/13/17 04:43 Monocytes % (Manual) 7 % (0-10) 05/13/17 04:43 Platelet Estimate Normal (NORMAL) 05/13/17 04:43 Large Platelets Present 05/13/17 04:43 Anisocytosis (manual) Slight 05/13/17 04:43 [place] Cells Moderate 05/13/17 04:43 PT 12.2 Seconds (9.8-13.1) 05/13/17 04:43 INR 1.1 (0.9-1.2) 05/13/17 04:43 APTT 30.9 Seconds (25.6-37.1) 05/13/17 04:43 pO2 44 mm/Hg (30-55) 05/13/17 08:10 VBG pH 7.37 (7.32-7.43) 05/13/17 08:10 VBG pCO2 41 mmHg (40-60) 05/13/17 08:10 VBG HCO3 23.2 mmol/L 05/13/17 08:10 VBG Total CO2 25.0 mmol/L (22-28) 05/13/17 08:10 VBG O2 Sat (Calc) 86.6 % (40-65) H 05/13/17 08:10 VBG Base Excess -1.5 mmol/L (0.0-2.0) L 05/13/17 08:10 VBG Potassium 3.7 mmol/L (3.6-5.2) 05/13/17 08:10 Sodium 135.0 mmol/L (132-148) 05/13/17 08:10 Chloride 101.0 mmol/L (98-107) 05/13/17 08:10 Glucose 144 mg/dL (65-105) H 05/13/17 08:10 Lactate 1.8 mmol/L (0.7-2.1) 05/13/17 08:10 FiO2 21.0 % 05/13/17 08:10 Crit Value Called To haleigh Petersen md 05/13/17 04:48 Crit Value Called By Fab alicea 05/13/17 04:48 Crit Value Read Back Y 05/13/17 04:48 Blood Gas Notified Time 457 05/13/17 04:48 Sodium 140 mmol/l (132-148) 05/14/17 05:10 Potassium 4.2 MMOL/L (3.6-5.0) 05/14/17 05:10 Chloride 106 mmol/L (98-107) 05/14/17 05:10 Carbon Dioxide 28 mmol/L (22-30) 05/14/17 05:10 Anion Gap 10 (10-20) 05/14/17 05:10 BUN 11 mg/dl (7-17) 05/14/17 05:10 Creatinine 0.6 mg/dl (0.7-1.2) L 05/14/17 05:10 Est GFR ( Amer) > 60 05/14/17 05:10 Est GFR (Non-Af Amer) > 60 05/14/17 05:10 Random Glucose 127 mg/dL (65-105) H 05/14/17 05:10 Calcium 8.4 mg/dL (8.4-10.2) 05/14/17 05:10 Phosphorus 1.6 mg/dl (2.5-4.5) L 05/13/17 04:43 Magnesium 1.9 MG/DL (1.6-2.3) 05/13/17 04:43 Total Bilirubin 0.9 mg/dl (0.2-1.3) 05/13/17 04:43 AST 69 U/L (14-36) H 05/13/17 04:43 ALT 25 U/L (9-52) 05/13/17 04:43 Alkaline Phosphatase 102 U/L (38-126) 05/13/17 04:43 Total Protein 8.0 G/DL (6.3-8.2) 05/13/17 04:43 Albumin 4.2 g/dL (3.5-5.0) 05/13/17 04:43 Globulin 3.8 gm/dL (2.2-3.9) 05/13/17 04:43 Albumin/Globulin Ratio 1.1 (1.0-2.1) 05/13/17 04:43 Triglycerides 74 mg/DL (0-149) D 05/16/17 05:30 Cholesterol 164 mg/dL (0-199) 05/16/17 05:30 LDL Cholesterol Direct 92 mg/dL (0-129) 05/16/17 05:30 HDL Cholesterol 44 MG/DL (30-70) 05/16/17 05:30 Venous Blood Potassium 3.7 mmol/L (3.6-5.2) 05/13/17 08:10 Urine Color Straw (YELLOW) 05/13/17 08:00 Urine Clarity Clear (Clear) 05/13/17 08:00 Urine pH 7.0 (5.0-8.0) 05/13/17 08:00 Ur Specific [place] 1.011 (1.003-1.030) 05/13/17 08:00 Urine Protein Negative mg/dL (NEGATIVE) 05/13/17 08:00 Urine Glucose (UA) Neg mg/dL (Normal) 05/13/17 08:00 Urine Ketones Negative mg/dL (NEGATIVE) 05/13/17 08:00 Urine Blood Negative (NEGATIVE) 05/13/17 08:00 Urine Nitrate Negative (NEGATIVE) 05/13/17 08:00 Urine Bilirubin Negative (NEGATIVE) 05/13/17 08:00 Urine Urobilinogen 0.2-1.0 mg/dL (0.2-1.0) 05/13/17 08:00 Ur Leukocyte Esterase Neg George/uL (Negative) 05/13/17 08:00 Urine RBC (Auto) 5 /hpf (0-3) H 05/13/17 08:00 Urine Microscopic WBC 1 /hpf (0-5) 05/13/17 08:00 Ur Squamous Epith Cells < 1 /hpf (0-5) 05/13/17 08:00 Hyaline Casts 0-2 /hpf (0-2) 05/13/17 08:00 Vancomycin Trough 14.2 ug/mL (5.0-10.0) H 05/15/17 06:00 Influenza Typ A,B (EIA) Pos for influenza a (NEGATIVE) H 05/13/17 04:43 Grp A Beta Strep Ag Negative (NEGATIVE) 05/13/17 04:43 - Hospital Course Hospital Course: CLINICALLY IMPROVED NO SOB/CHEST PAINS COUGH AND FEVER RESOLVED Discharge Exam - Head Exam Head Exam: ATRAUMATIC, NORMAL INSPECTION, NORMOCEPHALIC - Eye Exam Eye Exam: EOMI, Normal appearance, PERRL Pupil Exam: NORMAL ACCOMODATION, PERRL - GI/Abdominal Exam GI & Abdominal Exam: Normal Bowel Sounds - Rectal Exam Rectal Exam: NORMAL INSPECTION - Neurological Exam Neurological exam: Alert, CN II-XII Intact, Normal Gait, Oriented x3, Reflexes Normal - Psychiatric Exam Psychiatric exam: Normal Affect, Normal Mood - Skin Skin Exam: Dry, Intact, Normal Color, Warm Discharge Plan - Follow Up Plan Condition: GUARDED Disposition: HOME/ ROUTINE Patient education suggested?: Yes Instructions: Influenza (DC), Pneumonia (DC) Additional Instructions: DISCHARGE TODAY ON TAMIFLU X 2 MORE DAYS AND LEVAQUIN X 1 WEEK MEDROL RICKI FOLLOW UP WITH DR ZALDIVAR Referrals: Raymond Zaldivar MD [Primary Care Provider] -
== END 2017-05-17 11:30 | disposition home or self-care (01) | DRG 194 ==
LOC: H.ER 03:30 → H.ERHOLD 05:24 → H.TEL 16:03 → H.MEDSURG1 05-14 18:25
PROVIDERS: ADMIT Internal Medicine Pulmonary Disease; ATTEND Internal Medicine Pulmonary Disease
PROC: 3E0F7GC Introduction of Other Therapeutic Substance into Respiratory Tract, Via Natural or Artificial Opening (ICD-10-PCS; principal; 2017-05-17)
DX: J11.00 Influenza due to unidentified influenza virus with unspecified type of pneumonia (principal); J44.0 Chronic obstructive pulmonary disease with (acute) lower respiratory infection; J44.1 Chronic obstructive pulmonary disease with (acute) exacerbation; J45.901 Unspecified asthma with (acute) exacerbation; B96.3 Hemophilus influenzae [H. influenzae] as the cause of diseases classified elsewhere; E86.0 Dehydration; F41.8 Other specified anxiety disorders; J11.1 Influenza due to unidentified influenza virus with other respiratory manifestations

== ENCOUNTER 2017-07-29 08:28 | Emergency (ER) | payer MEDICARE ==
[2017-07-29 08:32] VITALS: TEMP 98.4
[2017-07-29] MEDS ORDERED: Sodium Chloride 0.9% 1,000 ML IV STA (09:24)
--- NOTE | 2017-07-29 09:27 | ED PDOC ---
HPI: Abdomen Time Seen by Provider: 07/29/17 09:06 Chief Complaint (Nursing): Abdominal Pain Chief Complaint (Provider): Abd pain History Per: Patient History/Exam Limitations: no limitations Onset/Duration Of Symptoms: Days (thursday) Current Symptoms Are (Timing): Still Present Additional Complaint(s): Pt. with abd bubbling all over. No pain. Feels some diarrhea, nonbloody. No vomit, but nausea today. No back pain, chest pain, dyspnea, weakness, dizziness , headaches. No fever, cough. No dysuria. All started after going to the [employer] and eating cru[employer] and eggs. Started when she got home. Past Medical History Reviewed: Nursing Documentation, Vital Signs Vital Signs: Last Vital Signs Temp 98.4 F 07/29/17 08:30 Pulse 106 H 07/29/17 08:30 Resp 18 07/29/17 08:30 BP 139/88 07/29/17 08:30 Pulse Ox 96 07/29/17 09:28 - Medical History PMH: Anxiety, Arthritis, Asthma (bronchial), Back Problems, Depression, Hypercholesterolemia Denies: Diabetes, HIV, HTN, Chronic Kidney Disease - Surgical History Surgical History: (x4) - Family History Family History: States: Unknown Family Hx - Home Medications Home Medications: Ambulatory Orders Medication Instructions Recorded PARoxetine [Paxil] 10 mg PO DAILY #0 tab 03/01/15 ALPRAZolam [Xanax] 0.25 mg PO Q12 PRN #10 tab 09/27/15 Fluticasone/Salmeterol 250/50 1 puff IH Q12 05/13/17 [Advair Diskus 250/50] Levofloxacin [Levaquin] 500 mg PO DAILY #7 tablet 05/17/17 Methylprednisolone [Medrol Dose 4 mg PO ASDIR #21 mg 05/17/17 Pack (21 tabs)] Oseltamivir [Tamiflu] 75 mg PO BID #4 cap 05/17/17 Dicyclomine [Dicyclomine HCl] 10 mg PO DAILY PRN 5 Days cap 07/29/17 - Allergies Allergies/Adverse Reactions: Allergies Allergy/AdvReac Type Severity Reaction Status Date / Time ceftriaxone sodium Allergy RASH Verified 07/29/17 08:54 [From Rocephin] moxifloxacin HCl Allergy RASH Verified 07/29/17 08:54 [From Avelox] Review of Systems ROS Statement: Except As Marked, All Systems Reviewed And Found Negative Gastrointestinal: Positive for: Nausea, Abdominal Pain (bubbling; no pain), Diarrhea Physical Exam - Reviewed Nursing Documentation Reviewed: Yes Vital Signs Reviewed: Yes - Physical Exam Appears: Positive for: Non-toxic, No Acute Distress Head Exam: Positive for: ATRAUMATIC, NORMAL INSPECTION, NORMOCEPHALIC Skin: Positive for: Normal Color, Warm, DRY Eye Exam: Positive for: EOMI, Normal appearance, PERRL ENT: Positive for: Normal ENT Inspection Neck: Positive for: Normal, Painless ROM Cardiovascular/Chest: Positive for: Regular Rate, Rhythm Respiratory: Positive for: CNT, Normal Breath Sounds Gastrointestinal/Abdominal: Positive for: Normal Exam, Bowel Sounds, Soft. Negative for: Tenderness, Distended, Guarding Back: Positive for: Normal Inspection. Negative for: L CVA Tenderness, R CVA Tenderness Extremity: Positive for: Normal ROM. Negative for: Tenderness, Pedal Edema Neurologic/Psych: Positive for: Alert, Oriented - Laboratory Results Result Diagrams: 07/29/17 09:30 07/29/17 09:30 Interpretation Of Abn Labs: no acute - ECG ECG: Positive for: Interpreted By Me, Viewed By Me ECG Rhythm: Positive for: Normal QRS, Normal ST Segment, Sinus Rhythm O2 Sat by Pulse Oximetry: 96 Pulse Ox Interpretation: Normal - Progress ED Course And Treament: 2310: Pt. stable. AAOx3. Pain free. Tolerated PO. Likely post food ingestion at restaurant. Pt. to fu with pcp. Disposition - Clinical Impression Clinical Impression: Nausea, Abdominal cramps - Patient ED Disposition Is Patient to be Admitted: No Counseled Patient/Family Regarding: Studies Performed, Diagnosis, Need For Followup, Rx Given - Disposition Referrals: Raymond Sosa MD [Family Provider] - 07/30/17 Disposition: Routine/Home Disposition Time: 13:11 Condition: STABLE Additional Instructions: Return if not better in 3 days. Prescriptions: Dicyclomine [Dicyclomine HCl] 10 mg PO DAILY PRN 5 Days cap PRN Reason: Gi Distress Instructions: Stomach Ache and Stomach Upset
[2017-07-29 09:41] LABS: BASO # 0.1 K/uL (0.0-0.2); BASO % 0.9 % (0.0-2.0); EOS # 0.6 K/uL (0.0-0.7); EOS % 7.4 % (0.0-4.0); HEMOGLOBIN 14.5 g/dL (12.0-16.0); LYMPH # 2.2 K/uL (1.0-4.3); LYMPH % 29.3 % (20.0-40.0); MEAN CELL VOLUME 93.1 fl (81.0-99.0); MEAN CORPUSCULAR HEMOGLOBIN 31.4 pg (27.0-31.0); MEAN CORPUSCULAR HGB CONC 33.7 g/dL (33.0-37.0); MEAN PLATELET VOLUME 7.4 fl (7.2-11.7); MONO # 0.7 K/uL (0.0-0.8); MONO % 9.4 % (0.0-10.0); NRBC % 0.1 % (0.0-0.0); RBC 4.62 Mil/uL (3.80-5.20); RED CELL DISTRIBUTION WIDTH 14.1 % (11.5-14.5); WHITE BLOOD COUNT 7.5 K/uL (4.8-10.8)
[2017-07-29 09:51] LABS: ALB/GLOB RATIO 1.1 (1.0-2.1); ALBUMIN 4.2 g/dL (3.5-5.0); ALT/SGPT 32 U/L (9-52); AST/SGOT 31 U/L (14-36); BLOOD UREA NITROGEN 9 mg/dl (7-17); CALCIUM 9.4 mg/dL (8.4-10.2); GFR AFRICAN-AMERICAN > 60; GFR NON-AFRICAN AMERICAN > 60; LIPASE 57 U/L (23-300)
[2017-07-29 13:25] VITALS: BP 120/75; PULSE 71; RESP 19; O2SAT 98
--- NOTE | 2017-07-29 17:31 | CARD ---
APPROVED REPORT EKG Measurement Heart [id number] <Conclusion> Normal sinus rhythm Normal ECG
== END 2017-07-29 13:35 | disposition home or self-care (01) ==
LOC: H.ER 08:28
DX: R10.9 Unspecified abdominal pain (principal); R11.0 Nausea; E78.00 Pure hypercholesterolemia, unspecified; F32.9 Major depressive disorder, single episode, unspecified; F41.9 Anxiety disorder, unspecified; J45.909 Unspecified asthma, uncomplicated
CPT/HCPCS: 80053; 83690; 84484; 85025; 93005; 96360; 99284; J2405; J7040

== ENCOUNTER 2017-10-01 07:54 | Emergency (ER) | payer MEDICARE ==
[2017-10-01 07:57] VITALS: BMI 31.1
[2017-10-01 07:58] VITALS: RESP 17
--- NOTE | 2017-10-01 10:04 | RAD ---
HISTORY: lef rib pain COMPARISON: 01/13/2018 TECHNIQUE: Chest PA and lateral FINDINGS: LUNGS: Left lung base discoid like atelectasis and or scarring Some of these discoid like atelectatic changes have slightly improved since 05/16/2017 PLEURA: No significant pleural effusion identified. No pneumothorax apparent. CARDIOVASCULAR: Normal. OSSEOUS STRUCTURES: Minimal thoracic spondylosis and minimal degenerative type wedging -mid thoracic spine level VISUALIZED UPPER ABDOMEN: Normal. OTHER FINDINGS: None. IMPRESSION: Slight improvement in the prior discoid atelectatic changes (with or without fibrosis) at the left lung base. If concern of left rib pain is present consider left rib x-ray series.
[2017-10-01 10:18] LABS: BASO % 0.4 % (0.0-2.0); EOS # 0.4 K/uL (0.0-0.7); EOS % 5.4 % (0.0-4.0); HEMOGLOBIN 14.8 g/dL (12.0-16.0); LYMPH # 1.4 K/uL (1.0-4.3); LYMPH % 18.2 % (20.0-40.0); MEAN CELL VOLUME 92.5 fl (81.0-99.0); MEAN CORPUSCULAR HEMOGLOBIN 31.6 pg (27.0-31.0); MEAN CORPUSCULAR HGB CONC 34.1 g/dL (33.0-37.0); MEAN PLATELET VOLUME 7.3 fl (7.2-11.7); MONO # 0.6 K/uL (0.0-0.8); MONO % 7.6 % (0.0-10.0); NEUT # 5.3 K/uL (1.8-7.0); NEUT % 68.4 % (50.0-75.0); RBC 4.7 Mil/uL (3.80-5.20); RED CELL DISTRIBUTION WIDTH 13.9 % (11.5-14.5); WHITE BLOOD COUNT 7.7 K/uL (4.8-10.8)
[2017-10-01 10:35] LABS: BLOOD UREA NITROGEN 11 mg/dl (7-17); GFR AFRICAN-AMERICAN > 60; GFR NON-AFRICAN AMERICAN > 60
--- NOTE | 2017-10-01 13:06 | ED PDOC ---
HPI: Back Time Seen by Provider: 10/01/17 08:28 Chief Complaint (Nursing): Back Pain Chief Complaint (Provider): Back Pain and Left Rib Pain History Per: Patient History/Exam Limitations: no limitations Onset/Duration Of Symptoms: Days (x2) Additional Complaint(s): 67 year old female with a history of back problems and COPD presents to the ED with left rib pain onset 2 days associated upper back pain. She reports pain is worse with movement and deep breath. Patient denies any injury, but she did move furniture a couple of days ago. She denies any other injuries, fever, difficulty breathing, chest pain, shortness of breath, or any other medical complaints. PMD: Dr. Sosa Past Medical History Vital Signs: Last Vital Signs Temp 98.1 F 10/01/17 08:10 Pulse 93 H 10/01/17 08:10 Resp 17 10/01/17 08:10 BP 147/87 10/01/17 08:10 Pulse Ox 96 10/01/17 08:10 - Medical History PMH: Anxiety, Arthritis, Asthma (bronchial), Back Problems, Bronchitis, COPD, Pneumonia Denies: Depression, Diabetes, HIV, HTN, Hypercholesterolemia, Chronic Kidney Disease - Surgical History Surgical History: (x4) - Family History Family History: States: Unknown Family Hx - Social History Current smoker - smoking cessation education provided: No Ex-Smoker (has not smoked in the last 12 months): No Alcohol: None Drugs: Denies - Immunization History Hx Tetanus Toxoid Vaccination: No Hx Influenza Vaccination: Yes Hx Pneumococcal Vaccination: No - Home Medications Home Medications: Ambulatory Orders Medication Instructions Recorded PARoxetine [Paxil] 10 mg PO DAILY #0 tab 03/01/15 ALPRAZolam [Xanax] 0.25 mg PO Q12 PRN #10 tab 09/27/15 Fluticasone/Salmeterol 250/50 1 puff IH Q12 05/13/17 [Advair Diskus 250/50] Levofloxacin [Levaquin] 500 mg PO DAILY #7 tablet 05/17/17 Methylprednisolone [Medrol Dose 4 mg PO ASDIR #21 mg 05/17/17 Pack (21 tabs)] Oseltamivir [Tamiflu] 75 mg PO BID #4 cap 05/17/17 Dicyclomine [Dicyclomine HCl] 10 mg PO DAILY PRN 5 Days cap 07/29/17 Famotidine [Pepcid] 20 mg PO DAILY PRN #6 tab 07/29/17 traMADol [Ultram] 50 mg PO QID #20 tab 10/02/17 valACYclovir [Valtrex] 1 gm PO TID #21 tab 10/02/17 - Allergies Allergies/Adverse Reactions: Allergies Allergy/AdvReac Type Severity Reaction Status Date / Time ceftriaxone sodium Allergy RASH Verified 10/01/17 08:16 [From Rocephin] moxifloxacin HCl Allergy RASH Verified 10/01/17 08:16 [From Avelox] Review of Systems ROS Statement: Except As Marked, All Systems Reviewed And Found Negative Constitutional: Negative for: Fever Cardiovascular: Positive for: Other (left rib pain). Negative for: Chest Pain Respiratory: Negative for: Shortness of Breath Musculoskeletal: Positive for: Back Pain (upper) Physical Exam - Reviewed Nursing Documentation Reviewed: Yes Vital Signs Reviewed: Yes - Physical Exam Appears: Positive for: Non-toxic, No Acute Distress Head Exam: Positive for: ATRAUMATIC, NORMOCEPHALIC Skin: Positive for: Normal Color, Warm, Dry Eye Exam: Positive for: EOMI, Normal appearance, PERRL ENT: Positive for: Normal ENT Inspection Neck: Positive for: Normal, Painless ROM, Supple Cardiovascular/Chest: Positive for: Regular Rate, Rhythm, Other (chest wall tenderness, no rash). Negative for: Murmur Respiratory: Positive for: Normal Breath Sounds. Negative for: Respiratory Distress Gastrointestinal/Abdominal: Positive for: Normal Exam, Soft. Negative for: Tenderness Back: Positive for: Normal Inspection Extremity: Positive for: Normal ROM (upper and lower extremities). Negative for : Pedal Edema, Deformity Neurologic/Psych: Positive for: Alert, Oriented (x3). Negative for: Motor/ Sensory Deficits - Laboratory Results Result Diagrams: 10/01/17 10:10 10/01/17 10:10 - ECG O2 Sat by Pulse Oximetry: 96 (RA) Pulse Ox Interpretation: Normal Medical Decision Making Medical Decision Making: Time: 9:38 Initial Impression: nontraumatic left rib pain Differential diagnoses include but are not limited to: musculoskeletal pain, lumbar radicular neuropathy less likely ACS Initial Plan: --EKG --BMP --Troponin --CBC with differentials --D Dimer --CXR --Flexeril 10 mg PO --Toradol 15 mg IVP Time: 10:02 CXR: FINDINGS: LUNGS: Left lung base discoid like atelectasis and or scarring Some of these discoid like atelectatic changes have slightly improved since 2017 PLEURA: No significant pleural effusion identified. No pneumothorax apparent. CARDIOVASCULAR: Normal. OSSEOUS STRUCTURES: Minimal thoracic spondylosis and minimal degenerative type wedging -mid thoracic spine level VISUALIZED UPPER ABDOMEN: Normal. OTHER FINDINGS: None. IMPRESSION: Slight improvement in the prior discoid atelectatic changes (with or without fibrosis) at the left lung base. If concern of left rib pain is present consider left rib x-ray series. 1300 On reevaluation, patient's condiiton improved significantly. Patient medically cleared for discharge. Diagnosis rib pain. Scribe Attestation: Documented by Matilde Espinoza, acting as a scribe for Cj Vallecillo MD Provider Scribe Attestation: All medical record entries made by the Scribe were at my direction and personally dictated by me. I have reviewed the chart and agree that the record accurately reflects my personal performance of the history, physical exam, medical decision making, and the department course for this patient. I have also personally directed, reviewed, and agree with the discharge instructions and disposition. Disposition - Clinical Impression Clinical Impression: Mid back pain, Rib pain on left side - Patient ED Disposition Is Patient to be Admitted: No Doctor Will See Patient In The: Office Counseled Patient/Family Regarding: Studies Performed, Diagnosis, Need For Followup - Disposition Referrals: Raymond Sosa MD [Family Provider] - Disposition: Routine/Home Disposition Time: 13:00 Condition: GOOD Additional Instructions: TAKE MOTRIN FOR PAIN. follow up with your PCP in 2-3 days. Instructions: Upper Back Pain
[2017-10-01 13:40] VITALS: BP 131/66; PULSE 73; TEMP 98
[2017-10-01 16:16] VITALS: O2SAT 96
--- NOTE | 2017-10-02 08:32 | CARD ---
APPROVED REPORT EKG Measurement Heart [id number] <Conclusion> Normal sinus rhythm normal ECG
== END 2017-10-01 13:38 | disposition home or self-care (01) ==
LOC: H.ER 07:54
DX: M54.9 Dorsalgia, unspecified (principal); R07.82 Intercostal pain; F41.9 Anxiety disorder, unspecified; J44.9 Chronic obstructive pulmonary disease, unspecified
CPT/HCPCS: 71046; 80048; 84484; 85025; 85378; 93005; 96374; 99283; J1885

== ENCOUNTER 2017-10-02 14:28 | Emergency (ER) | payer MEDICARE ==
[2017-10-02 14:28] VITALS: BMI 31.1
[2017-10-02 14:58] VITALS: BP 132/67; PULSE 82; RESP 20; TEMP 97; O2SAT 97
--- NOTE | 2017-10-02 15:00 | ED PDOC ---
HPI: Skin/Bite Injury Time Seen by Provider: 10/02/17 14:45 Chief Complaint (Nursing): Abnormal Skin Integrity Chief Complaint (Provider): Rash History Per: Patient History/Exam Limitations: no limitations Onset/Duration Of Symptoms: Days (x1) Current Symptoms Are (Timing): Still Present Quality Of Symptoms: Painful Additional Complaint(s): 67 year old female presents to ED with complaints of back pain x 2 days, now with rash to same area. Patient states that she was seen in the ED yesterday for back pain and was discharged home after receiving pain medication. She noticed painful rash today in the area where pain was previously noted. Patient took motrin which did not help the pain. PCP: Dr. Sosa Past Medical History Reviewed: Historical Data, Nursing Documentation, Vital Signs Vital Signs: Last Vital Signs Temp 97.0 F L 10/02/17 14:58 Pulse 82 10/02/17 14:58 Resp 20 10/02/17 14:58 BP 132/67 10/02/17 14:58 Pulse Ox 97 10/02/17 14:58 - Medical History PMH: Anxiety, Arthritis, Asthma, Back Problems, COPD - Surgical History Surgical History: (x4) - Family History Family History: States: No Known Family Hx - Living Arrangements Living Arrangements: With Family - Social History Current smoker - smoking cessation education provided: No Ex-Smoker (has not smoked in the last 12 months): No Alcohol: None Drugs: Denies - Home Medications Home Medications: Ambulatory Orders Medication Instructions Recorded PARoxetine [Paxil] 10 mg PO DAILY #0 tab 03/01/15 ALPRAZolam [Xanax] 0.25 mg PO Q12 PRN #10 tab 09/27/15 Fluticasone/Salmeterol 250/50 1 puff IH Q12 05/13/17 [Advair Diskus 250/50] Levofloxacin [Levaquin] 500 mg PO DAILY #7 tablet 05/17/17 Methylprednisolone [Medrol Dose 4 mg PO ASDIR #21 mg 05/17/17 Pack (21 tabs)] Oseltamivir [Tamiflu] 75 mg PO BID #4 cap 05/17/17 Dicyclomine [Dicyclomine HCl] 10 mg PO DAILY PRN 5 Days cap 07/29/17 Famotidine [Pepcid] 20 mg PO DAILY PRN #6 tab 07/29/17 traMADol [Ultram] 50 mg PO QID #20 tab 10/02/17 valACYclovir [Valtrex] 1 gm PO TID #21 tab 10/02/17 - Allergies Allergies/Adverse Reactions: Allergies Allergy/AdvReac Type Severity Reaction Status Date / Time ceftriaxone sodium Allergy RASH Verified 10/01/17 08:16 [From Rocephin] moxifloxacin HCl Allergy RASH Verified 10/01/17 08:16 [From Avelox] Review of Systems ROS Statement: Except As Marked, All Systems Reviewed And Found Negative Musculoskeletal: Positive for: Back Pain Skin: Positive for: Rash Physical Exam - Reviewed Nursing Documentation Reviewed: Yes Vital Signs Reviewed: Yes - Physical Exam Appears: Positive for: Well, Non-toxic, No Acute Distress Skin: Positive for: Warm, Dry, Rash (vesicular rash to the left flank region, consistent with shingles) Eye Exam: Positive for: Normal appearance Cardiovascular/Chest: Positive for: Regular Rate, Rhythm Respiratory: Positive for: Normal Breath Sounds. Negative for: Wheezing, Respiratory Distress Extremity: Positive for: Normal ROM Neurologic/Psych: Positive for: Alert, Oriented - ECG Interpretation Of ECG: Normal sinus rhythm 78 bpm, no acute finding, reviewed by PA and ED attending. O2 Sat by Pulse Oximetry: 97 Pulse Ox Interpretation: Normal Medical Decision Making Medical Decision Makin Initial impression: shingles Initial plan: * Toradol 30mg IM * Ultram 50mg PO Patient reports improvement to pain s/p meds given. Prescriptions given for tramadol and Valtrex. Patient was advised to continue with motrin as well for pain relief. Advised PMD follow up next week. Scribe Attestation: Documented by Martine Dsouza, acting as a scribe for Maegan Harrison PA-C Provider Scribe Attestation: All medical record entries made by the Scribe were at my direction and personally dictated by me. I have reviewed the chart and agree that the record accurately reflects my personal performance of the history, physical exam, medical decision making, and the department course for this patient. I have also personally directed, reviewed, and agree with the discharge instructions and disposition. Disposition - Clinical Impression Clinical Impression: Liliane - Patient ED Disposition Is Patient to be Admitted: No Counseled Patient/Family Regarding: Studies Performed, Diagnosis, Need For Followup, Rx Given - Disposition Referrals: Raymond Sosa MD [Staff Provider] - Disposition: Routine/Home Disposition Time: 15:32 Condition: STABLE Additional Instructions: Continue with ibuprofen for pain, take prescription meds as directed. Follow-up with primary doctor on Thursday. Prescriptions: traMADol [Ultram] 50 mg PO QID #20 tab valACYclovir [Valtrex] 1 gm PO TID #21 tab Instructions: Liliane (DC) Forms: [employer] (Danish)
== END 2017-10-02 15:51 | disposition home or self-care (01) ==
LOC: H.ER 14:28
DX: B02.9 Zoster without complications (principal); F41.9 Anxiety disorder, unspecified; J44.9 Chronic obstructive pulmonary disease, unspecified
CPT/HCPCS: 96372; 99283; J1885

== ENCOUNTER 2017-10-14 07:32 | Emergency (ER) | payer MEDICARE ==
[2017-10-14 07:32] VITALS: BMI 31.1
[2017-10-14 07:43] VITALS: TEMP 98.5
[2017-10-14] MEDS ORDERED: Lidocaine 5% Patch TD STA (08:00)
[2017-10-14] MEDS ORDERED: Sodium Chloride 0.9% 1,000 ML IV STA (08:00)
--- NOTE | 2017-10-14 08:03 | ED PDOC ---
HPI: Skin/Bite Injury Time Seen by Provider: 10/14/17 07:45 Chief Complaint (Nursing): Abnormal Skin Integrity Chief Complaint (Provider): Pain to skin History Per: Patient History/Exam Limitations: no limitations Onset/Duration Of Symptoms: Days (2 weeks) Additional Complaint(s): Pt. dx with shingle 2 weeks ago and given antiviral and pain meds. Is taking it but pain still present so came to the ER. Is taking tramadol and naproxen for pain. The shingles are on the left under the breast going to the left back and stops at the middle. No numbness, tingles, weakness, dyspnea, headache, dizziness, abd pain. No nausea, vomit, diarrhea. Pain is on the skin where shingles is. Fin ished her valtrex. Past Medical History Reviewed: Nursing Documentation, Vital Signs Vital Signs: Last Vital Signs Temp 98.5 F 10/14/17 07:42 Pulse 98 H 10/14/17 07:42 Resp 20 10/14/17 07:42 BP 135/72 10/14/17 07:42 Pulse Ox 99 10/14/17 08:08 - Medical History PMH: Anxiety, Arthritis, Asthma, Back Problems, Bronchitis, COPD Denies: Depression, Diabetes, HIV, HTN, Hypercholesterolemia, Chronic Kidney Disease - Surgical History Surgical History: (x4) - Family History Family History: States: Unknown Family Hx - Living Arrangements Living Arrangements: With Family - Immunization History Hx Tetanus Toxoid Vaccination: No Hx Influenza Vaccination: Yes Hx Pneumococcal Vaccination: No - Home Medications Home Medications: Ambulatory Orders Medication Instructions Recorded PARoxetine [Paxil] 10 mg PO DAILY #0 tab 03/01/15 ALPRAZolam [Xanax] 0.25 mg PO Q12 PRN #10 tab 09/27/15 Fluticasone/Salmeterol 250/50 1 puff IH Q12 05/13/17 [Advair Diskus 250/50] Levofloxacin [Levaquin] 500 mg PO DAILY #7 tablet 05/17/17 Methylprednisolone [Medrol Dose 4 mg PO ASDIR #21 mg 05/17/17 Pack (21 tabs)] Oseltamivir [Tamiflu] 75 mg PO BID #4 cap 05/17/17 Dicyclomine [Dicyclomine HCl] 10 mg PO DAILY PRN 5 Days cap 07/29/17 Famotidine [Pepcid] 20 mg PO DAILY PRN #6 tab 07/29/17 traMADol [Ultram] 50 mg PO QID #20 tab 10/02/17 valACYclovir [Valtrex] 1 gm PO TID #21 tab 10/02/17 Lidocaine 5% [Lidoderm] 1 ea TD DAILY PRN #5 patch 10/14/17 - Allergies Allergies/Adverse Reactions: Allergies Allergy/AdvReac Type Severity Reaction Status Date / Time ceftriaxone sodium Allergy RASH Verified 10/14/17 07:55 [From Rocephin] moxifloxacin HCl Allergy RASH Verified 10/14/17 07:55 [From Avelox] Review of Systems ROS Statement: Except As Marked, All Systems Reviewed And Found Negative Cardiovascular: Positive for: Chest Pain (on skin L) Skin: Positive for: Rash, Lesions Physical Exam - Reviewed Nursing Documentation Reviewed: Yes Vital Signs Reviewed: Yes - Physical Exam Appears: Positive for: Non-toxic, No Acute Distress Head Exam: Positive for: ATRAUMATIC, NORMAL INSPECTION, NORMOCEPHALIC Skin: Positive for: Normal Color, Warm, DRY Eye Exam: Positive for: EOMI, Normal appearance, PERRL ENT: Positive for: Normal ENT Inspection Neck: Positive for: Normal, Painless ROM Cardiovascular/Chest: Positive for: Regular Rate, Rhythm. Negative for: Chest Non Tender (scabbed patches with no erythema, (mild tender in the chest scabs): L chest under breast and going to the back and stopping at midline; no vessicles, fluctuance, induration.) Respiratory: Positive for: CNT, Normal Breath Sounds Gastrointestinal/Abdominal: Positive for: Normal Exam, Soft Back: Negative for: L CVA Tenderness, R CVA Tenderness Extremity: Positive for: Normal ROM. Negative for: Tenderness, Pedal Edema Neurologic/Psych: Positive for: Alert, Oriented - Laboratory Results Result Diagrams: 10/14/17 08:12 10/14/17 08:13 Interpretation Of Abn Labs: no acute - ECG ECG: Positive for: Interpreted By Me, Viewed By Me ECG Rhythm: Positive for: Normal QRS, Normal ST Segment, Sinus Rhythm O2 Sat by Pulse Oximetry: 99 Pulse Ox Interpretation: Normal - CT Scan/US US Other Rad Studies (CT/US): Read By Radiologist Other Rad Interpretation: no acute - Progress ED Course And Treament: 1055: Stable. AAOx3. Will rx lidocaine patch. Fu with pcp. Pt. has no vesicles as described in 2 weeks. 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 with post herpatic pain. Disposition - Clinical Impression Clinical Impression: Shingles (herpes zoster) polyneuropathy - Patient ED Disposition Is Patient to be Admitted: Yes Counseled Patient/Family Regarding: Studies Performed, Diagnosis, Need For Followup, Rx Given - Disposition Referrals: Lalit Horton MD [Staff Provider] - 10/16/17 Disposition: Routine/Home Disposition Time: 10:58 Condition: STABLE Additional Instructions: Return if not better in 3 days. Prescriptions: Lidocaine 5% [Lidoderm] 1 ea TD DAILY PRN #5 patch PRN Reason: Pain, Moderate (4-7) Instructions: Shingles
[2017-10-14] MEDS ORDERED: Morphine 4 MG/ML VIAL ONE (08:18)
[2017-10-14 08:29] LABS: BASO % 0.4 % (0.0-2.0); EOS % 0.7 % (0.0-4.0); HEMOGLOBIN 13.9 g/dL (12.0-16.0); LYMPH # 0.9 K/uL (1.0-4.3); LYMPH % 13.7 % (20.0-40.0); MEAN CELL VOLUME 92.1 fl (81.0-99.0); MEAN CORPUSCULAR HEMOGLOBIN 31.6 pg (27.0-31.0); MEAN CORPUSCULAR HGB CONC 34.3 g/dL (33.0-37.0); MEAN PLATELET VOLUME 7.6 fl (7.2-11.7); MONO # 0.2 K/uL (0.0-0.8); MONO % 2.7 % (0.0-10.0); NEUT # 5.7 K/uL (1.8-7.0); NEUT % 82.5 % (50.0-75.0); NRBC % 0.2 % (0.0-0.0); RBC 4.4 Mil/uL (3.80-5.20); RED CELL DISTRIBUTION WIDTH 13.9 % (11.5-14.5); WHITE BLOOD COUNT 6.9 K/uL (4.8-10.8)
[2017-10-14 08:36] LABS: ALB/GLOB RATIO 1.1 (1.0-2.1); ALBUMIN 4.3 g/dL (3.5-5.0); ALT/SGPT 22 U/L (9-52); AST/SGOT 25 U/L (14-36); BLOOD UREA NITROGEN 10 mg/dl (7-17); CALCIUM 9.6 mg/dL (8.4-10.2); GFR AFRICAN-AMERICAN > 60; GFR NON-AFRICAN AMERICAN > 60
[2017-10-14 11:11] VITALS: BP 130/79; PULSE 78; RESP 18; O2SAT 98
--- NOTE | 2017-10-14 13:03 | US ---
PROCEDURE: Left breast ultrasound HISTORY: eval for abscess; tender inferior breast Relevant medical history: "Shingles" . COMPARISON: None TECHNIQUE: Standard protocol for this study/examination. Targeted ultrasound area of interest 6-9 o'clock. FINDINGS: Cyst(s): None Breast mass: None Dilated ducts: None Parenchymal distortion: None Skin thickening or subcutaneous abnormalities: None IMPRESSION: BIRADS 1 (negative). Patient management should be based on findings on physical examination in the absence of either ultrasound and/or mammographic correlate.
--- NOTE | 2017-10-15 08:36 | CARD ---
APPROVED REPORT EKG Measurement Heart [id number] <Conclusion> Normal sinus rhythm Normal ECG
== END 2017-10-14 11:10 | disposition home or self-care (01) ==
LOC: H.ER 07:32
DX: B02.9 Zoster without complications (principal); B02.23 Postherpetic polyneuropathy; F41.9 Anxiety disorder, unspecified; J44.9 Chronic obstructive pulmonary disease, unspecified
CPT/HCPCS: 76642; 80053; 84484; 85025; 93005; 96360; 99283; J2270; J7030

== ENCOUNTER 2017-12-06 09:13 | Emergency (ER) | payer MEDICARE ==
[2017-12-06 09:21] VITALS: TEMP 98.9
[2017-12-06 09:22] VITALS: BMI 29.9
[2017-12-06] MEDS ORDERED: Albuterol-Ipratrop 3 mg / 0.5 (3 ml) UD INH STA ×2 (10:03→11:52)
[2017-12-06] MEDS ORDERED: methylPREDNISolone 125 MG in Sodium Chloride 0.9% 50 ML IV STA (10:04)
[2017-12-06] MEDS ORDERED: Albuterol-Ipratrop 3 mg / 0.5 (3 ml) UD ONE (10:43)
[2017-12-06 10:44] LABS: BASO # 0.1 K/uL (0.0-0.2); BASO % 0.8 % (0.0-2.0); EOS # 0.4 K/uL (0.0-0.7); EOS % 4.5 % (0.0-4.0); HEMOGLOBIN 13.9 g/dL (12.0-16.0); LYMPH % 24.4 % (20.0-40.0); MEAN CELL VOLUME 95.2 fl (81.0-99.0); MEAN CORPUSCULAR HEMOGLOBIN 31.8 pg (27.0-31.0); MEAN CORPUSCULAR HGB CONC 33.4 g/dL (33.0-37.0); MEAN PLATELET VOLUME 7.3 fl (7.2-11.7); MONO # 0.7 K/uL (0.0-0.8); MONO % 8.7 % (0.0-10.0); NEUT # 4.9 K/uL (1.8-7.0); NEUT % 61.6 % (50.0-75.0); RBC 4.37 Mil/uL (3.80-5.20); RED CELL DISTRIBUTION WIDTH 14.2 % (11.5-14.5)
[2017-12-06 10:48] LABS: BLOOD UREA NITROGEN 10 mg/dl (7-17); CALCIUM 9.3 mg/dL (8.4-10.2); GFR NON-AFRICAN AMERICAN > 60
--- NOTE | 2017-12-06 11:22 | ED PDOC ---
History of Present Illness History of Present Illness: 67 years old female presents to the ED for evaluation of worsening of shortness of breath and cough onset yesterday. Patient reports that symptoms are normal COPD exacerbation. She states she attempted to treat herself at home but ran out of nebulizer. Patient reports she could not sleep last night due to continuous cough with clear sputum. She denies any fever, chest pain, nausea, vomiting, calf tenderness or leg swelling. PMD: Raymond Sosa I HPI: Influenza Time Seen by Provider: 12/06/17 09:36 Chief Complaint: Cough, Cold, Congestion Chief Complaint (Provider): Cough, Cold, Congestion History Per: Patient Exam Limitations: no limitations Onset/Duration Of Symptoms: Days (1) Symptoms include: cough, difficulty breathing. denies: fever, vomiting, chest pain Past Medical History Reviewed: Historical Data, Nursing Documentation Vital Signs: Last Vital Signs Temp 98.9 F 12/06/17 09:36 Pulse 89 12/06/17 09:36 Resp 16 12/06/17 09:36 BP 129/81 12/06/17 09:36 Pulse Ox 95 12/06/17 09:36 - Medical History PMH: Anxiety, Arthritis, Asthma, Back Problems, Bronchitis, COPD, Pneumonia Denies: Depression, Diabetes, HIV, HTN, Hypercholesterolemia, Chronic Kidney Disease - Surgical History Surgical History: No Surg Hx, (x4) - Family History Family History: States: Unknown Family Hx - Social History Current smoker - smoking cessation education provided: No Alcohol: None Drugs: Denies - Immunization History Hx Tetanus Toxoid Vaccination: No Hx Influenza Vaccination: Yes Hx Pneumococcal Vaccination: No - Home Medications Home Medications: Ambulatory Orders Medication Instructions Recorded PARoxetine [Paxil] 10 mg PO DAILY #0 tab 03/01/15 ALPRAZolam [Xanax] 0.25 mg PO Q12 PRN #10 tab 09/27/15 Fluticasone/Salmeterol 250/50 1 puff IH Q12 05/13/17 [Advair Diskus 250/50] Levofloxacin [Levaquin] 500 mg PO DAILY #7 tablet 05/17/17 Methylprednisolone [Medrol Dose 4 mg PO ASDIR #21 mg 05/17/17 Pack (21 tabs)] Oseltamivir [Tamiflu] 75 mg PO BID #4 cap 05/17/17 Dicyclomine [Dicyclomine HCl] 10 mg PO DAILY PRN 5 Days cap 07/29/17 Famotidine [Pepcid] 20 mg PO DAILY PRN #6 tab 07/29/17 traMADol [Ultram] 50 mg PO QID #20 tab 10/02/17 valACYclovir [Valtrex] 1 gm PO TID #21 tab 10/02/17 Lidocaine 5% [Lidoderm] 1 ea TD DAILY PRN #5 patch 10/14/17 Albuterol 0.083% [Albuterol 3 ml IH Q6 PRN #30 12/06/17 Sulfate 3 Ml] Azithromycin 500 mg PO DAILY #3 tablet 12/06/17 Fluticasone/Salmeterol 250/50 1 dsk IH BID #1 puff 12/06/17 [Advair Diskus] predniSONE [predniSONE Tab] 40 mg PO DAILY #8 tab 12/06/17 - Allergies Allergies/Adverse Reactions: Allergies Allergy/AdvReac Type Severity Reaction Status Date / Time ceftriaxone sodium Allergy RASH Verified 10/14/17 07:55 [From Rocephin] moxifloxacin HCl Allergy RASH Verified 10/14/17 07:55 [From Avelox] Review of Systems ROS Statement: Except As Marked, All Systems Reviewed And Found Negative Constitutional: Negative for: Fever Cardiovascular: Negative for: Chest Pain Respiratory: Positive for: Cough, Sputum (clear) Gastrointestinal: Negative for: Nausea, Vomiting Musculoskeletal: Negative for: Other (Leg swelling) Physical Exam - Reviewed Nursing Documentation Reviewed: Yes Vital Signs Reviewed: Yes - Physical Exam Appears: Positive for: Non-toxic, No Acute Distress Head Exam: Positive for: ATRAUMATIC, NORMOCEPHALIC Eye Exam: Positive for: Normal appearance, EOMI, PERRL Cardiovascular/Chest: Positive for: Regular Rate, Rhythm. Negative for: Murmur Respiratory: Positive for: Wheezing (Diffused expiratory) Gastrointestinal/Abdominal: Positive for: Normal Exam, Soft. Negative for: Tenderness Neurologic/Psych: Positive for: Alert, Oriented (x3) Medical Decision Making Medical Decision Making: Time: 1003 --67 years old female with acute COPD, unable to treat herself at home because of running out of medication. --Discharge home if symptoms improved and reassess patient Initial Plan: --BMP --CBC --Chest X-Ray --Albuterol 3 ml INH --SOLU-Medrol 125 mg IV --Peak Flow Pre/Post Tx 1200 Upon provider reevaluation patient is feeling better, is medically stable, and requires no further treatment in the ED at this time. Patient will be discharged home with Rx for Duoneb, nebulizer and azithromycin . Counseling was provided and all questions were answered regarding diagnosis. There is agreement to discharge plan. Return if symptoms persist or worsen. Scribe Attestation: Documented by Penny Bailey, acting as a scribe for Bernie Blanco MD. Provider Scribe Attestation: All medical record entries made by the Scribe were at my direction and personally dictated by me. I have reviewed the chart and agree that the record accurately reflects my personal performance of the history, physical exam, medical decision making, and the department course for this patient. I have also personally directed, reviewed, and agree with the discharge instructions and disposition. - Laboratory Results Result Diagrams: 12/06/17 10:20 12/06/17 10:20 - ECG O2 Sat by Pulse Oximetry: 95 (RA) Pulse Ox Interpretation: Normal Disposition - Clinical Impression Clinical Impression: COPD exacerbation - Disposition Disposition: Routine/Home Disposition Time: 12:00 Condition: IMPROVED Additional Instructions: Follow up with primary medical doctor in one week. Return to the emergency department if symptoms worsen or if new symptoms develop. Take medications as prescribed. Prescriptions: Albuterol 0.083% [Albuterol Sulfate 3 Ml] 3 ml IH Q6 PRN #30 PRN Reason: Shortness Of Breath Azithromycin 500 mg PO DAILY #3 tablet Fluticasone/Salmeterol 250/50 [Advair Diskus] 1 dsk IH BID #1 puff predniSONE [predniSONE Tab] 40 mg PO DAILY #8 tab Instructions: Exacerbation of COPD (DC), Medicines for Chronic Obstructive Pulmonary Disease (COPD) Forms: [employer] (Faroese) Print Language: MONTSERRATIAN
[2017-12-06] MEDS: Magnesium Sulfate 1 GM in Dextrose 5% In Water 100 ML IV SCH ×2 (12:31→13:11)
[2017-12-06 13:54] VITALS: BP 130/78; PULSE 82; RESP 18
--- NOTE | 2017-12-06 14:11 | RAD ---
Date of service: 12/06/2017 HISTORY: Possible admission COMPARISON: Comparison chest 10/01/2017 FINDINGS: LUNGS: Mild bibasilar atelectasis PLEURA: No significant pleural effusion identified, no pneumothorax apparent. CARDIOVASCULAR: Heart size within range of normal however there is a slight left ventricular configuration. Aorta minimally ectatic uncoiled. OSSEOUS STRUCTURES: Minor multilevel degenerative spondylosis of the thoracic spine VISUALIZED UPPER ABDOMEN: Normal. OTHER FINDINGS: None. IMPRESSION: Mild bibasilar atelectasis.
[2017-12-10 21:17] VITALS: O2SAT 95
== END 2017-12-06 13:53 | disposition home or self-care (01) ==
LOC: H.ER 09:13
DX: J44.1 Chronic obstructive pulmonary disease with (acute) exacerbation (principal)
CPT/HCPCS: 71045; 80048; 85025; 94640; 96374; 96375; 96376; 99283; J2930; J3475

== ENCOUNTER 2018-01-09 10:55 | Emergency (ER) | payer MEDICARE ==
[2018-01-09 11:08] VITALS: TEMP 98.5
[2018-01-09 11:09] VITALS: BMI 30.2
[2018-01-09 11:20] VITALS: O2SAT 98
[2018-01-09] MEDS ORDERED: Albuterol-Ipratrop 3 mg / 0.5 (3 ml) UD INH STA (11:34)
[2018-01-09] MEDS ORDERED: Albuterol-Ipratrop 3 mg / 0.5 (3 ml) UD IH STA (11:34)
--- NOTE | 2018-01-09 11:39 | ED PDOC ---
HPI: SOB/CHF/COPD Time Seen by Provider: 01/09/18 11:12 Chief Complaint (Nursing): Shortness Of Breath Chief Complaint (Provider): Dyspnea History Per: Patient History/Exam Limitations: no limitations Onset/Duration Of Symptoms: Days (yesterday) Additional Complaint(s): Pt. with wheezes since yesterday. Cough. No chest pain. States she was in an area where there was grass being cut and it triggered her asthma. No dizziness. No weakness. No fever. Tried neb, but no relief. Past Medical History Reviewed: Nursing Documentation, Vital Signs Vital Signs: Last Vital Signs Temp 98.5 F 01/09/18 11:08 Pulse 84 01/09/18 11:14 Resp 20 01/09/18 11:18 BP 124/75 01/09/18 11:08 Pulse Ox 98 01/09/18 11:18 - Medical History PMH: Anxiety, Arthritis, Asthma, Back Problems, Bronchitis, COPD, Depression, Pneumonia Denies: Diabetes, HIV, HTN, Hypercholesterolemia, Chronic Kidney Disease - Surgical History Surgical History: (x4) - Family History Family History: States: Unknown Family Hx - Living Arrangements Living Arrangements: With Family - Immunization History Hx Tetanus Toxoid Vaccination: No Hx Influenza Vaccination: Yes Hx Pneumococcal Vaccination: No - Home Medications Home Medications: Ambulatory Orders Medication Instructions Recorded PARoxetine [Paxil] 10 mg PO DAILY #0 tab 03/01/15 ALPRAZolam [Xanax] 0.25 mg PO Q12 PRN #10 tab 09/27/15 Fluticasone/Salmeterol 250/50 1 puff IH Q12 05/13/17 [Advair Diskus 250/50] Levofloxacin [Levaquin] 500 mg PO DAILY #7 tablet 05/17/17 Methylprednisolone [Medrol Dose 4 mg PO ASDIR #21 mg 05/17/17 Pack (21 tabs)] Oseltamivir [Tamiflu] 75 mg PO BID #4 cap 05/17/17 Dicyclomine [Dicyclomine HCl] 10 mg PO DAILY PRN 5 Days cap 07/29/17 Famotidine [Pepcid] 20 mg PO DAILY PRN #6 tab 07/29/17 traMADol [Ultram] 50 mg PO QID #20 tab 10/02/17 valACYclovir [Valtrex] 1 gm PO TID #21 tab 10/02/17 Lidocaine 5% [Lidoderm] 1 ea TD DAILY PRN #5 patch 10/14/17 Albuterol 0.083% [Albuterol 3 ml IH Q6 PRN #30 12/06/17 Sulfate 3 Ml] Azithromycin 500 mg PO DAILY #3 tablet 12/06/17 Fluticasone/Salmeterol 250/50 1 dsk IH BID #1 puff 12/06/17 [Advair Diskus] predniSONE [predniSONE Tab] 40 mg PO DAILY #8 tab 12/06/17 Albuterol Sulfate [Proair Hfa] 0.09 mg IH Q6H PRN #2 inh 01/09/18 predniSONE [predniSONE Tab] 20 mg PO BID 5 Days tab 01/09/18 - Allergies Allergies/Adverse Reactions: Allergies Allergy/AdvReac Type Severity Reaction Status Date / Time ceftriaxone sodium Allergy RASH Verified 10/14/17 07:55 [From Rocephin] moxifloxacin HCl Allergy RASH Verified 10/14/17 07:55 [From Avelox] Review of Systems ROS Statement: Except As Marked, All Systems Reviewed And Found Negative Respiratory: Positive for: Cough, Shortness of Breath Physical Exam - Reviewed Nursing Documentation Reviewed: Yes Vital Signs Reviewed: Yes - Physical Exam Appears: Positive for: Non-toxic, No Acute Distress Head Exam: Positive for: ATRAUMATIC, NORMAL INSPECTION, NORMOCEPHALIC Skin: Positive for: Normal Color, Warm, DRY Eye Exam: Positive for: EOMI, Normal appearance, PERRL ENT: Positive for: Normal ENT Inspection Neck: Positive for: Normal, Painless ROM Cardiovascular/Chest: Positive for: Regular Rate, Rhythm Respiratory: Positive for: Wheezing (b/l ). Negative for: Accessory Muscle Use Gastrointestinal/Abdominal: Positive for: Normal Exam, Soft Back: Positive for: Normal Inspection Extremity: Positive for: Normal ROM Neurologic/Psych: Positive for: Alert, Oriented - ECG ECG: Positive for: Interpreted By Me, Viewed By Me ECG Rhythm: Positive for: Normal QRS, Normal ST Segment, Sinus Rhythm O2 Sat by Pulse Oximetry: 98 Pulse Ox Interpretation: Normal - Progress ED Course And Treament: 1328: Stable. AAOx3. Pain free. Tolerated PO. Fu with pcp. Disposition - Clinical Impression Clinical Impression: Asthma exacerbation attacks - Patient ED Disposition Is Patient to be Admitted: No - Disposition Referrals: [facility] [Outside] - 01/12/18 Disposition: Routine/Home Disposition Time: 13:29 Condition: STABLE Additional Instructions: Return if not better in 3 days. Prescriptions: Albuterol Sulfate [Proair Hfa] 0.09 mg IH Q6H PRN #2 inh PRN Reason: Wheezing predniSONE [predniSONE Tab] 20 mg PO BID 5 Days tab Instructions: Asthma in Adults
[2018-01-09] MEDS ORDERED: Albuterol-Ipratrop 3 mg / 0.5 (3 ml) UD ONE (12:25)
[2018-01-09 13:47] VITALS: BP 120/69; PULSE 86; RESP 18
--- NOTE | 2018-01-09 21:53 | CARD ---
APPROVED REPORT Date of service: 01/09/2018 EKG Measurement Heart [id number] <Conclusion> Normal sinus rhythm Normal ECG
== END 2018-01-09 13:38 | disposition home or self-care (01) ==
LOC: H.ER 10:55
DX: J45.901 Unspecified asthma with (acute) exacerbation (principal); J44.9 Chronic obstructive pulmonary disease, unspecified; Z86.59 Personal history of other mental and behavioral disorders

== ENCOUNTER 2018-04-05 04:34 | Emergency (ER) | payer MEDICARE ==
[2018-04-05 04:34] VITALS: BMI 30.2
[2018-04-05 05:00] VITALS: PULSE 90
[2018-04-05] MEDS ORDERED: Magnesium Sulfate 2 gm/50 ml 2 GM/50 ML BAG IV STA (05:13)
[2018-04-05] MEDS ORDERED: Albuterol-Ipratrop 3 mg / 0.5 (3 ml) UD INH STA (05:13)
[2018-04-05] MEDS ORDERED: Promethazine/Cod 6.25mg-10mg/5ml Syr UD PO STA (05:14)
[2018-04-05] MEDS ORDERED: Magnesium Sulfate 2 gm/50 ml 2 GM/50 ML BAG ONE (05:20)
[2018-04-05] MEDS ORDERED: Promethazine/Cod 6.25mg-10mg/5ml Syr UD ONE (05:48)
--- NOTE | 2018-04-05 05:52 | ED PDOC ---
History of Present Illness History of Present Illness: 68 y/o female with history of asthma presents to ER for evaluation of shortness of breath associated with wheezing and cough onset a week. Patient reports she was seen by Dr. Sosa and has finished 5 days of antibiotics with no improvement. She states cough is productive with greenish phlegm and reports associated runny nose and congestion. Patient reports worsening of symptoms yesterday and states she took dimetapp with no relief. She denies any nausea, vomiting or diarrhea. PMD: Raymond Sosa I HPI: Influenza Time Seen by Provider: 04/05/18 05:03 Chief Complaint: Cough, Cold, Congestion Chief Complaint (Provider): Cough, Cold, Congestion History Per: Patient Exam Limitations: no limitations Onset/Duration Of Symptoms: Days (x7) Symptoms include: cough (with green-franny phlegm), nasal congestion, difficulty breathing. denies: vomiting, diarrhea Past Medical History Reviewed: Historical Data, Nursing Documentation, Vital Signs Vital Signs: Last Vital Signs Temp 98.9 F 04/05/18 04:56 Pulse 90 04/05/18 04:56 Resp 16 04/05/18 04:56 BP 137/73 04/05/18 04:56 Pulse Ox 91 L 04/05/18 04:56 - Medical History PMH: Anxiety, Arthritis, Asthma, Back Problems, Bronchitis, COPD, Depression, Pneumonia Denies: Diabetes, HIV, HTN, Hypercholesterolemia, Chronic Kidney Disease - Surgical History Surgical History: (x4) - Family History Family History: States: Unknown Family Hx - Social History Current smoker - smoking cessation education provided: No Alcohol: None Drugs: Denies - Immunization History Hx Tetanus Toxoid Vaccination: No Hx Influenza Vaccination: Yes Hx Pneumococcal Vaccination: No - Home Medications Home Medications: Ambulatory Orders Medication Instructions Recorded PARoxetine [Paxil] 10 mg PO DAILY #0 tab 03/01/15 ALPRAZolam [Xanax] 0.25 mg PO Q12 PRN #10 tab 09/27/15 Fluticasone/Salmeterol 250/50 1 puff IH Q12 05/13/17 [Advair Diskus 250/50] Levofloxacin [Levaquin] 500 mg PO DAILY #7 tablet 05/17/17 Methylprednisolone [Medrol Dose 4 mg PO ASDIR #21 mg 05/17/17 Pack (21 tabs)] Oseltamivir Cap [Tamiflu] 75 mg PO BID #4 cap 05/17/17 Dicyclomine [Dicyclomine HCl] 10 mg PO DAILY PRN 5 Days cap 07/29/17 Famotidine [Pepcid] 20 mg PO DAILY PRN #6 tab 07/29/17 traMADol [Ultram] 50 mg PO QID #20 tab 10/02/17 valACYclovir [Valtrex] 1 gm PO TID #21 tab 10/02/17 Lidocaine 5% [Lidoderm] 1 ea TD DAILY PRN #5 patch 10/14/17 Albuterol 0.083% [Albuterol 3 ml IH Q6 PRN #30 12/06/17 Sulfate 3 Ml] Azithromycin 500 mg PO DAILY #3 tablet 12/06/17 Fluticasone/Salmeterol 250/50 1 dsk IH BID #1 puff 12/06/17 [Advair Diskus] predniSONE [predniSONE Tab] 40 mg PO DAILY #8 tab 12/06/17 Albuterol Sulfate [Proair Hfa] 0.09 mg IH Q6H PRN #2 inh 01/09/18 predniSONE [predniSONE Tab] 20 mg PO BID 5 Days tab 01/09/18 Benzonatate [Tessalon Perle] 100 mg PO TID PRN #15 capsule 04/05/18 Methylprednisolone [Medrol Dosepak] 4 mg PO ASDIR #1 pkg 04/05/18 - Allergies Allergies/Adverse Reactions: Allergies Allergy/AdvReac Type Severity Reaction Status Date / Time ceftriaxone sodium Allergy RASH Verified 10/14/17 07:55 [From Rocephin] moxifloxacin HCl Allergy RASH Verified 10/14/17 07:55 [From Avelox] Review of Systems ROS Statement: Except As Marked, All Systems Reviewed And Found Negative ENT: Positive for: Nose Discharge, Nose Congestion Respiratory: Positive for: Cough (productive of greenish phlegm), Shortness of Breath, Wheezing Gastrointestinal: Negative for: Nausea, Vomiting, Diarrhea Physical Exam - Reviewed Nursing Documentation Reviewed: Yes Vital Signs Reviewed: Yes - Physical Exam Appears: Positive for: No Acute Distress, Uncomfortable Head Exam: Positive for: ATRAUMATIC, NORMOCEPHALIC Skin: Positive for: Normal Color, Warm, Dry Eye Exam: Positive for: Normal appearance, EOMI, PERRL ENT: Positive for: Normal ENT Inspection Neck: Positive for: Normal, Painless ROM, Supple Cardiovascular/Chest: Positive for: Regular Rate, Rhythm. Negative for: Murmur Respiratory: Positive for: Wheezing (expiratory bilaterally with decreased air entry) Gastrointestinal/Abdominal: Positive for: Normal Exam, Soft. Negative for: Tenderness Back: Positive for: Normal Inspection. Negative for: L CVA Tenderness, R CVA Tenderness Extremity: Positive for: Normal ROM. Negative for: Pedal Edema, Deformity Neurologic/Psych: Positive for: Alert, Oriented (x3) Medical Decision Making Medical Decision Making: Time: 511 Initial Impression: 68 y/o female with acute asthma exacerbation Initial Plan: --Labs --Duoneb --Magnesium Sulfate --SOLU-Medrol --Phenergan 0630 Labs reviewed and show no significant abnormality CXR shows no active disease Patient reports marked improvement in symptoms and is medically stable for discharge Diagnosis is asthma exacerbation Scribe Attestation: Documented by Penny Bailey, acting as a scribe for Carlos Eduardo Davila MD. Provider Scribe Attestation: All medical record entries made by the Scribe were at my direction and personally dictated by me. I have reviewed the chart and agree that the record accurately reflects my personal performance of the history, physical exam, medical decision making, and the department course for this patient. I have also personally directed, reviewed, and agree with the discharge instructions and disposition. - Laboratory Results Result Diagrams: 04/05/18 05:50 04/05/18 05:50 - ECG O2 Sat by Pulse Oximetry: 91 (RA) Pulse Ox Interpretation: Abnormal - Critical Care Total Time (In Min): 30 Disposition - Clinical Impression Clinical Impression: Asthma exacerbation - Patient ED Disposition Is Patient to be Admitted: No - Disposition Disposition: Routine/Home Disposition Time: 06:30 Condition: STABLE Prescriptions: Benzonatate [Tessalon Perle] 100 mg PO TID PRN #15 capsule PRN Reason: Cough Methylprednisolone [Medrol Dosepak] 4 mg PO ASDIR #1 pkg Instructions: Asthma in Adults, Asthma Action Plan Forms: [facility] (Czech)
[2018-04-05 05:59] LABS: BASO % 0.2 % (0.0-2.0); EOS % 0.3 % (0.0-4.0); HEMOGLOBIN 14.3 g/dL (12.0-16.0); LYMPH # 0.9 K/uL (1.0-4.3); MEAN CELL VOLUME 94.1 fl (81.0-99.0); MEAN CORPUSCULAR HEMOGLOBIN 31.7 pg (27.0-31.0); MEAN CORPUSCULAR HGB CONC 33.6 g/dL (33.0-37.0); MEAN PLATELET VOLUME 7.7 fl (7.2-11.7); MONO % 9.3 % (0.0-10.0); NEUT # 8.6 K/uL (1.8-7.0); NEUT % 81.2 % (50.0-75.0); PLATELET COUNT 276 K/uL (130-400); RBC 4.51 Mil/uL (3.80-5.20); RED CELL DISTRIBUTION WIDTH 13.8 % (11.5-14.5); WHITE BLOOD COUNT 10.6 K/uL (4.8-10.8)
[2018-04-05 06:12] LABS: ALB/GLOB RATIO 1.1 (1.0-2.1); ALT/SGPT 15 U/L (9-52); AST/SGOT 19 U/L (14-36); BLOOD UREA NITROGEN 10 mg/dl (7-17); CALCIUM 8.8 mg/dL (8.4-10.2); GFR NON-AFRICAN AMERICAN > 60
[2018-04-05 06:39] LABS: ANISOCYTOSIS SLIGHT; LYMPHOCYTE 8 % (20-50); MONOCYTE 9 % (0-10); NEUTROPHIL 83 % (42-75); PLATELET ESTIMATE NORMAL (NORMAL); TOTAL CELLS COUNTED 100
[2018-04-05 06:40] LABS: OVALOCYTES SLIGHT; POIKILOCYTOSIS SLIGHT
[2018-04-05 06:50] VITALS: BP 120/54; RESP 18; TEMP 98.5; O2SAT 94
--- NOTE | 2018-04-05 08:50 | RAD ---
Date of service: 04/05/2018 HISTORY: cough COMPARISON: 12/06/2017. FINDINGS: LUNGS: The lungs are well inflated and clear. There is bibasilar atelectasis. PLEURA: No pleural effusions or pneumothorax. CARDIOVASCULAR: The heart is normal in size. No aortic atherosclerotic calcification present. OSSEOUS STRUCTURES: Within normal limits for the patient's age. VISUALIZED UPPER ABDOMEN: Normal. OTHER FINDINGS: None. IMPRESSION: No active pulmonary disease.
== END 2018-04-05 06:47 | disposition home or self-care (01) ==
LOC: H.ER 04:34
DX: J45.901 Unspecified asthma with (acute) exacerbation (principal); J44.9 Chronic obstructive pulmonary disease, unspecified; Z86.59 Personal history of other mental and behavioral disorders
CPT/HCPCS: 71045; 80053; 83605; 85025; 87040; 87804; 94640; 96374; 99283; J2930

== ENCOUNTER 2018-04-06 13:52 | Emergency (ER) | payer MEDICARE ==
[2018-04-06 13:52] VITALS: BMI 30.2
[2018-04-06] MEDS ORDERED: Azithromycin 500 MG in Sodium Chloride 0.9% 250 ML IVPB STA (15:01)
[2018-04-06] MEDS ORDERED: guaiFENesin-Codeine 100-10mg/5ml Syrup (5 ml) UD PO STA (15:01)
[2018-04-06] MEDS ORDERED: Albuterol-Ipratrop 3 mg / 0.5 (3 ml) UD INH STA (15:03)
[2018-04-06] MEDS ORDERED: guaiFENesin-Codeine 100-10mg/5ml Syrup (5 ml) UD ONE (15:38)
[2018-04-06] MEDS ORDERED: Azithromycin 500 MG IV IVPB ONE (15:38)
--- NOTE | 2018-04-06 15:38 | ED PDOC ---
HPI: CCC, URI, Sore Throat Time Seen by Provider: 04/06/18 14:53 Chief Complaint (Nursing): Cough, Cold, Congestion History Per: Patient History/Exam Limitations: no limitations Have you had recent travel within the past 21 days to any of the following countries: [place], [place], [place] or [place]?: No Onset/Duration Of Symptoms: Days Current Symptoms Are (Timing): Still Present Sick Contacts (Context): None Associated Symptoms: Fever, Chills, Sore Throat, Cough, Sputum, Myalgias, Nasal Congestion Additional Complaint(s): 68 y/o female with history of asthma presents to ER for evaluation of shortness of breath associated with wheezing and cough (productive of yellow sputum) for over one week. PT was seen by her PMD on Thursday and completed a 5 day course of antibiotics but did not improve. 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 She states cough is productive with greenish phlegm and reports associated runny nose and congestion. . She denies any nausea, vomiting or diarrhea. PMD: Raymond Sosa I Past Medical History Vital Signs: Last Vital Signs Temp 99.9 F H 04/06/18 14:00 Pulse 99 H 04/06/18 14:00 Resp 20 04/06/18 14:00 BP 134/81 04/06/18 14:00 Pulse Ox 91 L 04/06/18 14:00 - Medical History PMH: Anxiety, Arthritis, Asthma, Back Problems, Bronchitis, COPD, Depression, Pneumonia Denies: Diabetes, HIV, HTN, Hypercholesterolemia, Chronic Kidney Disease - Surgical History Surgical History: (x4) - Family History Family History: States: Unknown Family Hx - Immunization History Hx Tetanus Toxoid Vaccination: No Hx Influenza Vaccination: Yes Hx Pneumococcal Vaccination: No - Home Medications Home Medications: Ambulatory Orders Medication Instructions Recorded PARoxetine [Paxil] 10 mg PO DAILY #0 tab 03/01/15 ALPRAZolam [Xanax] 0.25 mg PO Q12 PRN #10 tab 09/27/15 Fluticasone/Salmeterol 250/50 1 puff IH Q12 05/13/17 [Advair Diskus 250/50] Levofloxacin [Levaquin] 500 mg PO DAILY #7 tablet 05/17/17 Methylprednisolone [Medrol Dose 4 mg PO ASDIR #21 mg 05/17/17 Pack (21 tabs)] Oseltamivir Cap [Tamiflu] 75 mg PO BID #4 cap 05/17/17 Dicyclomine [Dicyclomine HCl] 10 mg PO DAILY PRN 5 Days cap 07/29/17 Famotidine [Pepcid] 20 mg PO DAILY PRN #6 tab 07/29/17 traMADol [Ultram] 50 mg PO QID #20 tab 10/02/17 valACYclovir [Valtrex] 1 gm PO TID #21 tab 10/02/17 Lidocaine 5% [Lidoderm] 1 ea TD DAILY PRN #5 patch 10/14/17 Albuterol 0.083% [Albuterol 3 ml IH Q6 PRN #30 12/06/17 Sulfate 3 Ml] Azithromycin 500 mg PO DAILY #3 tablet 12/06/17 Fluticasone/Salmeterol 250/50 1 dsk IH BID #1 puff 12/06/17 [Advair Diskus] predniSONE [predniSONE Tab] 40 mg PO DAILY #8 tab 12/06/17 Albuterol Sulfate [Proair Hfa] 0.09 mg IH Q6H PRN #2 inh 01/09/18 predniSONE [predniSONE Tab] 20 mg PO BID 5 Days tab 01/09/18 Benzonatate [Tessalon Perle] 100 mg PO TID PRN #15 capsule 04/05/18 Methylprednisolone [Medrol Dosepak] 4 mg PO ASDIR #1 pkg 04/05/18 Amoxicillin/Clavulanate [Augmentin 1 tab PO BID #14 tab 04/06/18 875 MG-125 MG] DiphenhydrAMINE [Benadryl] 25 mg PO Q6 PRN #30 cap 04/06/18 guaiFENesin/Codeine 10 ml PO HS PRN #40 ml 04/06/18 [Codeine/Guaifenesin 10 MG/5 Ml-100 MG/5 Ml 5] - Allergies Allergies/Adverse Reactions: Allergies Allergy/AdvReac Type Severity Reaction Status Date / Time ceftriaxone sodium Allergy RASH Verified 04/06/18 13:57 [From Rocephin] moxifloxacin HCl Allergy RASH Verified 04/06/18 13:57 [From Avelox] Review of Systems Constitutional: Positive for: Fever, Chills, Weakness Eyes: Negative for: Pain ENT: Negative for: Ear Pain Cardiovascular: Negative for: Chest Pain, Palpitations, Edema, Light Headedness Respiratory: Positive for: Cough, Shortness of Breath, Sputum Gastrointestinal: Positive for: Vomiting, Abdominal Pain Skin: Negative for: Rash Neurological: Negative for: Weakness, Numbness, Incoordination, Change in Speech Physical Exam - Physical Exam Appears: Positive for: Well, Uncomfortable Head Exam: Positive for: ATRAUMATIC, NORMAL INSPECTION, NORMOCEPHALIC Skin: Positive for: Normal Color, Warm, Dry Cardiovascular/Chest: Positive for: Regular Rate, Rhythm, Chest Non Tender. Negative for: JVD, Murmur Respiratory: Positive for: Normal Breath Sounds Pulses-Radial (L): 2+ Pulses-Radial (R): 2+ Gastrointestinal/Abdominal: Positive for: Normal Exam, Soft. 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 Failure of outpatient treatment. -repeat CXR -Robutussin with codeine, toradol, and albuterol for symptoms relieve. -IV fluids -reassess pt Time: 1815 -- Labs within normal limits. CXR initial read shows possible infiltrates in the left lower lobe. Patient already failed outpatient treatment of azithromycin. After thorough chart review and discussion with pharmacist as well as risk and benefit with the patient, patient will be given Augmentin. Patient confirms previous reaction to Rocephin resulted in rash. Patient to be given a pre scription of Benadryl in case of allergic or adverse reaction. Patient also to be given a prescription of Augmentin for pneumonia as well as Robitussin with Codeine that is only to be taken at night to prevent a cough. Patient advised to follow up with PMD in 3-5 days. Scribe Attestation: Documented by Phuong Holden, acting as a scribe for Bernie Blanco MD. Provider Scribe Attestation: All medical record entries made by the Scribe were at my direction and personally dictated by me. I have reviewed the chart and agree that the record accurately reflects my personal performance of the medical decision making for this patient. I have also personally directed, reviewed, and agree with the discharge instructions and disposition. Disposition - Clinical Impression Clinical Impression: Pneumonia, COPD exacerbation - Patient ED Disposition Is Patient to be Admitted: No Counseled Patient/Family Regarding: Studies Performed, Diagnosis, Need For Followup, Rx Given - Disposition Disposition: Routine/Home Disposition Time: 18:15 Condition: IMPROVED Additional Instructions: Take medications as prescribed. Take Cough syrup only at night prior to sleep and do not drive or perform dangerous activities if you have taken the cough syrup within 4 hours of activity. Take Benadryl if you develop a rash and return to the emergency department immediately. Follow up with primary medical doctor in 3 to 5 days. Prescriptions: Amoxicillin/Clavulanate [Augmentin 875 MG-125 MG] 1 tab PO BID #14 tab DiphenhydrAMINE [Benadryl] 25 mg PO Q6 PRN #30 cap PRN Reason: Allergy Symptoms guaiFENesin/Codeine [Codeine/Guaifenesin 10 MG/5 Ml-100 MG/5 Ml 5] 10 ml PO HS PRN #40 ml PRN Reason: Cough Instructions: Exacerbation of COPD (DC), Community-Acquired Pneumonia, Adult (DC) Forms: [employer] (Kyrgyz) Print Language: STATELESS
[2018-04-06] MEDS ORDERED: Albuterol-Ipratrop 3 mg / 0.5 (3 ml) UD ONE (15:39)
[2018-04-06 16:00] LABS: BASO % 0.2 % (0.0-2.0); EOS # 0.1 K/uL (0.0-0.7); EOS % 1.2 % (0.0-4.0); HEMOGLOBIN 13.3 g/dL (12.0-16.0); LYMPH # 1.7 K/uL (1.0-4.3); LYMPH % 14.6 % (20.0-40.0); MEAN CELL VOLUME 94.4 fl (81.0-99.0); MEAN CORPUSCULAR HEMOGLOBIN 30.7 pg (27.0-31.0); MEAN CORPUSCULAR HGB CONC 32.5 g/dL (33.0-37.0); MEAN PLATELET VOLUME 7.7 fl (7.2-11.7); MONO # 1.1 K/uL (0.0-0.8); MONO % 9.4 % (0.0-10.0); NEUT # 8.9 K/uL (1.8-7.0); NEUT % 74.6 % (50.0-75.0); NRBC % 0.1 % (0.0-0.0); RBC 4.32 Mil/uL (3.80-5.20); RED CELL DISTRIBUTION WIDTH 13.8 % (11.5-14.5)
[2018-04-06 16:03] LABS: VENOUS BLOOD GAS BASE EXCESS 4.7 mmol/L (0.0-2.0); VENOUS BLOOD GAS PCO2 51 mmHg (40-60); VENOUS BLOOD GAS PO2 23 mm/Hg (30-55); VENOUS BLOOD PH 7.39 (7.32-7.43)
[2018-04-06 16:31] LABS: BLOOD UREA NITROGEN 14 mg/dl (7-17); CALCIUM 8.4 mg/dL (8.4-10.2); GFR NON-AFRICAN AMERICAN > 60
--- NOTE | 2018-04-06 18:05 | RAD ---
Date of service: 04/06/2018 HISTORY: worsening cough COMPARISON: 04/05/2018 TECHNIQUE: Chest PA and lateral FINDINGS: LUNGS: Mild pulmonary hyperinflation with flattening of the diaphragm and increase in the A-P diameter of the thorax, consistent with COPD. No acute infiltrate. PLEURA: No significant pleural effusion identified. No pneumothorax apparent. CARDIOVASCULAR: No aortic atherosclerotic calcification present. Normal cardiac size. No pulmonary vascular congestion. OSSEOUS STRUCTURES: No significant abnormalities. VISUALIZED UPPER ABDOMEN: Normal. OTHER FINDINGS: None. IMPRESSION: Pulmonary hyperinflation. Likely COPD. No acute infiltrate.
[2018-04-06] MEDS ORDERED: Amoxicillin-Clav 875-125 mg Tab PO ONE (18:30)
[2018-04-06 19:11] VITALS: BP 132/84; PULSE 91; RESP 17; TEMP 98.7; O2SAT 95
== END 2018-04-06 19:11 | disposition home or self-care (01) ==
LOC: H.ER 13:52
DX: J18.9 Pneumonia, unspecified organism (principal); J44.1 Chronic obstructive pulmonary disease with (acute) exacerbation
CPT/HCPCS: 71046; 80048; 82803; 85025; 87040; 94640; 96374; 96375; 99283; J0456; J1885; J7050

== ENCOUNTER 2018-06-14 10:12 | Inpatient (IN) | payer MEDICARE ==
[2018-06-14 10:12] VITALS: BMI 29.6
[2018-06-14] MEDS ORDERED: Albuterol-Ipratrop 3 mg / 0.5 (3 ml) UD ONE (11:15)
[2018-06-14] MEDS ORDERED: Albuterol-Ipratrop 3 mg / 0.5 (3 ml) UD INH STA ×3 (11:17→11:21)
--- NOTE | 2018-06-14 12:04 | ED PDOC ---
HPI: SOB/CHF/COPD Time Seen by Provider: 06/14/18 11:51 Chief Complaint (Nursing): Respiratory Distress Chief Complaint (Provider): Respiratory Distress History Per: Patient History/Exam Limitations: no limitations Onset/Duration Of Symptoms: Days (x5) Current Symptoms Are (Timing): Still Present Additional Complaint(s): 68 year old female with past history of COPD and hypertension, presents to the emergency department with a complaint of shortness of breath associated with wheezing and chest pain with cough for 5 days. Patient has been taking Albuterol and nebulizer treatments with persistent symptoms. Patient states she could not reach her primary doctor, thus, prompting ED visit. Otherwise, she denies fever or chills. PCP: Dr. Raymond Sosa Past Medical History Reviewed: Historical Data, Nursing Documentation, Vital Signs Vital Signs: Last Vital Signs Temp 99.7 F H 06/14/18 10:19 Pulse 86 06/14/18 10:40 Resp 16 06/14/18 10:40 BP 116/67 06/14/18 10:40 Pulse Ox 96 06/14/18 10:40 - Medical History PMH: Anxiety, Arthritis, Asthma, Back Problems, Bronchitis, COPD, Depression, HTN, Pneumonia Denies: Diabetes, HIV, Hypercholesterolemia, Chronic Kidney Disease - Surgical History Surgical History: - Family History Family History: States: Unknown Family Hx - Immunization History Hx Tetanus Toxoid Vaccination: No Hx Influenza Vaccination: Yes Hx Pneumococcal Vaccination: No - Home Medications Home Medications: Ambulatory Orders Medication Instructions Recorded ALPRAZolam [Xanax] 0.25 mg PO Q12 PRN #10 tab 09/27/15 Fluticasone/Salmeterol 250/50 1 puff IH Q12 05/13/17 [Advair Diskus 250/50] Albuterol Sulfate [Ventolin Hfa] 2 puff IH Q6 PRN 06/14/18 Cholecalciferol [Vitamin D 1000 IU] 1,000 unit PO DAILY 06/14/18 PARoxetine [Paxil] 20 mg PO DAILY 06/14/18 Zolpidem [Ambien] 5 mg PO HS PRN 06/14/18 - Allergies Allergies/Adverse Reactions: Allergies Allergy/AdvReac Type Severity Reaction Status Date / Time ceftriaxone sodium Allergy RASH Verified 04/28/18 08:19 [From Rocephin] moxifloxacin HCl Allergy RASH Verified 04/28/18 08:19 [From Avelox] Review of Systems ROS Statement: Except As Marked, All Systems Reviewed And Found Negative Constitutional: Negative for: Fever, Chills Respiratory: Positive for: Cough, Shortness of Breath, Pleuritic Pain, Wheezing Physical Exam - Reviewed Nursing Documentation Reviewed: Yes Vital Signs Reviewed: Yes - Physical Exam Appears: Positive for: Non-toxic, No Acute Distress Head Exam: Positive for: ATRAUMATIC Skin: Positive for: Normal Color Eye Exam: Positive for: Normal appearance ENT: Positive for: Normal ENT Inspection. Negative for: Pharyngeal Erythema Neck: Positive for: Normal, Supple Cardiovascular/Chest: Positive for: Regular Rate, Rhythm, Chest Non Tender Respiratory: Positive for: Wheezing (diffuse bilaterally). Negative for: Respiratory Distress Neurologic/Psych: Positive for: Alert, Oriented. Negative for: Motor/Sensory Deficits - Laboratory Results Result Diagrams: 06/14/18 12:00 06/14/18 12:00 - ECG ECG: Positive for: Interpreted By Me, Viewed By Me ECG Rhythm: Positive for: Normal QRS, Normal ST Segment, Sinus Rhythm. Negative for: ST/T Changes Rate: 87 O2 Sat by Pulse Oximetry: 96 (RA) Pulse Ox Interpretation: Normal - Radiology X-Ray: Interpreted by Me, Viewed By Me X-Ray Interpretation: No Acute Disease Nebulizer Treatments/Peak Flow - Duonebs Number of Bronchodilator Doses given?: 3 - Steroid Treatment Steroid: IV - Clinical Response Clinical Response: Improved Medical Decision Making Medical Decision Making: Initial Impression: shortness of breath; wheezing Differential diagnosis: COPD exacerbation rule out pneumonia Initial Plan: * EKG * Labs * Duoneb 3ml INH * Solu-medrol 125mg IVP * Influenza AB Time: 1408 --Labs reviewed: (+) influenza A, otherwise, no significant clinical abnormality. CXR: (-) active disease. Will admit patient for COPD exacerbation and influenza. Case discussed with Dr. Sosa who is agreeable to plan to admit patient as high-risk for respiratory complication. Patient is also agreeable to plan of care. -------- --------- Scribe Attestation: Documented by Alix Montes, acting as a scribe for Cj Vallecillo MD. Provider Scribe Attestation: All medical record entries made by the Scribe were at my direction and personally dictated by me. I have reviewed the chart and agree that the record accurately reflects my personal performance of the history, physical exam, medical decision making, and the department course for this patient. I have also personally directed, reviewed, and agree with the discharge instructions and disposition. Disposition - Clinical Impression Clinical Impression: COPD exacerbation, Influenza - Patient ED Disposition Is Patient to be Admitted: Yes Discussed With DrEde: Raymond Sosa Doctor Will See Patient In The: Hospital Counseled Patient/Family Regarding: Diagnosis - Disposition Disposition Time: 14:00 Condition: FAIR - Pt Status Changed To: Hospital Disposition Of: Inpatient - Admit Certification Admit to Inpatient:: After my assessment, the patient will require hospitalization for at least two midnights. This is because of the severity of symptoms shown, intensity of services needed, and/or the medical risk in this patient being treated as an outpatient. - POA Present On Arrival: None
[2018-06-14 12:26] LABS: BASO % 0.6 % (0.0-2.0); EOS # 0.7 K/uL (0.0-0.7); EOS % 8.9 % (0.0-4.0); HEMOGLOBIN 13.3 g/dL (12.0-16.0); LYMPH # 2.5 K/uL (1.0-4.3); LYMPH % 33.4 % (20.0-40.0); MEAN CELL VOLUME 93.2 fl (81.0-99.0); MEAN CORPUSCULAR HGB CONC 33.3 g/dL (33.0-37.0); MEAN PLATELET VOLUME 7.5 fl (7.2-11.7); MONO # 0.6 K/uL (0.0-0.8); MONO % 7.8 % (0.0-10.0); NEUT # 3.6 K/uL (1.8-7.0); NEUT % 49.3 % (50.0-75.0); NRBC % 0.1 % (0.0-0.0); RBC 4.28 Mil/uL (3.80-5.20); RED CELL DISTRIBUTION WIDTH 14.3 % (11.5-14.5); WHITE BLOOD COUNT 7.4 K/uL (4.8-10.8)
[2018-06-14 12:36] LABS: BLOOD UREA NITROGEN 10 mg/dl (7-17); CALCIUM 9.5 mg/dL (8.4-10.2); GFR NON-AFRICAN AMERICAN > 60
[2018-06-14 12:48] LABS: B-TYPE NATRIURETIC PEPTIDE 47.8 pg/ml (0-900)
--- NOTE | 2018-06-14 16:16 | RAD ---
Date of service: 06/14/2018 PROCEDURE: CHEST RADIOGRAPH, 1 VIEW HISTORY: dyspnea COMPARISON: 04/06/2018 FINDINGS: LUNGS: Clear. PLEURA: No pneumothorax or pleural fluid seen. CARDIOVASCULAR: No aortic atherosclerotic calcification present. Normal. OSSEOUS STRUCTURES: No significant abnormalities. VISUALIZED UPPER ABDOMEN: Normal. OTHER FINDINGS: None. IMPRESSION: No active disease.No significant interval change compared to the prior examination(s).
--- NOTE | 2018-06-14 16:28 | CARD ---
APPROVED REPORT Date of service: 06/14/2018 EKG Measurement Heart [id number] ID [id number] <Conclusion> Normal sinus rhythm Normal ECG
[2018-06-14] MEDS ORDERED: Sodium Chloride 3% for Inhalation 4 ML VIAL.NEB IH PRN (23:05)
[2018-06-14] MEDS ORDERED: Dextrose 5%/0.45% NS 1,000 ML IV SCH (23:15)
[2018-06-15] MEDS: Albuterol-Ipratrop 3 mg / 0.5 (3 ml) UD INH SCH ×4 (01:32→19:10)
[2018-06-15] MEDS: Promethazine DM 12.5 mg-30 mg/10 ml Syrup PO PRN (06:39)
[2018-06-15] MEDS: Fluticasone-Salmeterol 250-50mcg Diskus IH SCH ×2 (08:36→21:38)
--- NOTE | 2018-06-15 09:02 | CP.PCM.HP ---
History of Present Illness - History of Present Illness History of Present Illness: 68 YR OLD FEMALE WITH HX OF ASTHMA WHO IS ADMITTED BECAUSE OF SHORTNESS OF BREATH AND INFLUENZA INFECTION. HX OF ASTHMA AND ANXIETY Present on Admission - Present on Admission Any Indicators Present on Admission: No Past Patient History - Infectious Disease Hx of Infectious Diseases: None - Past Medical History & Family History Past Medical History?: Yes - Past Social History Smoking Status: Never Smoked - CARDIAC Hx Hypercholesterolemia: No Hx Hypertension: Yes - PULMONARY Hx Asthma: Yes Hx Bronchitis: Yes Hx Chronic Obstructive Pulmonary Disease (COPD): Yes Hx Pneumonia: Yes - NEUROLOGICAL Hx Neurological Disorder: No - HEENT Hx HEENT Problems: No - RENAL Hx Chronic Kidney Disease: No - ENDOCRINE/METABOLIC Hx Endocrine Disorders: No - HEMATOLOGICAL/ONCOLOGICAL Hx Human Immunodeficiency Virus (HIV): No - INTEGUMENTARY Hx Dermatological Problems: No - MUSCULOSKELETAL/RHEUMATOLOGICAL Hx Arthritis: Yes Hx Back Pain: Yes Hx Falls: No - GASTROINTESTINAL Hx Gastrointestinal Disorders: No - GENITOURINARY/GYNECOLOGICAL Hx Genitourinary Disorders: No - PSYCHIATRIC Hx Anxiety: Yes Hx Depression: Yes Hx Substance Use: No - SURGICAL HISTORY Hx Surgeries: Yes Hx Breast Biopsy: Yes Hx Section: Yes (x 4) Other/Comment: Left shoulder dislocation due to fall and surgery in 2003 - ANESTHESIA Hx Anesthesia: Yes Hx Anesthesia Reactions: No Hx Malignant Hyperthermia: No Has any member of the family had a problem w/ anesthesia?: No Meds Allergies/Adverse Reactions: Allergies Allergy/AdvReac Type Severity Reaction Status Date / Time ceftriaxone sodium Allergy RASH Verified 04/28/18 08:19 [From Rocephin] moxifloxacin HCl Allergy RASH Verified 04/28/18 08:19 [From Avelox] Physical Exam - Constitutional Appears: Well, In Acute Distress - Head Exam Head Exam: ATRAUMATIC, NORMAL INSPECTION, NORMOCEPHALIC - Eye Exam Eye Exam: EOMI, Normal appearance, PERRL Pupil Exam: NORMAL ACCOMODATION, PERRL - ENT Exam ENT Exam: Mucous Membranes Moist, Normal Exam - Neck Exam Neck exam: Positive for: Normal Inspection - Respiratory Exam Respiratory Exam: Decreased Breath Sounds, Prolonged Expiratory Phase, Rales, NORMAL BREATHING PATTERN - Cardiovascular Exam Cardiovascular Exam: REGULAR RHYTHM - GI/Abdominal Exam GI & Abdominal Exam: Normal Bowel Sounds, Soft. absent: Tenderness - Rectal Exam Rectal Exam: NORMAL INSPECTION - Extremities Exam Extremities exam: Positive for: normal inspection - Back Exam Back exam: NORMAL INSPECTION - Neurological Exam Neurological exam: Alert, CN II-XII Intact, Normal Gait, Oriented x3, Reflexes Normal - Psychiatric Exam Psychiatric exam: Normal Affect, Normal Mood - Skin Skin Exam: Dry, Intact, Normal Color, Warm Results - Vital Signs Recent Vital Signs: Last Vital Signs Temp 98.6 F 06/15/18 07:42 Pulse 92 H 06/15/18 07:42 Resp 20 06/15/18 07:42 BP 132/80 06/15/18 07:42 Pulse Ox 94 L 06/15/18 07:42 - Labs Result Diagrams: 06/14/18 12:00 06/14/18 12:00 Labs: Laboratory Results - last 24 hr 06/14/18 06/14/18 06/14/18 12:00 12:00 13:10 WBC 7.4 RBC 4.28 Hgb 13.3 Hct 39.8 MCV 93.2 MCH 31.0 MCHC 33.3 RDW 14.3 Plt Count 288 MPV 7.5 Neut % (Auto) 49.3 L Lymph % (Auto) 33.4 Jay % (Auto) 7.8 Eos % (Auto) 8.9 H Baso % (Auto) 0.6 Neut # (Auto) 3.6 Lymph # (Auto) 2.5 Jay # (Auto) 0.6 Eos # (Auto) 0.7 Baso # (Auto) 0.0 Sodium 139 Potassium 4.1 Chloride 104 Carbon Dioxide 28 Anion Gap 11 BUN 10 Creatinine 0.7 Est GFR ( Amer) > 60 Est GFR (Non-Af Amer) > 60 Random Glucose 89 Calcium 9.5 Troponin I < 0.0120 NT-Pro-B Natriuret Pep 47.8 Influenza Typ A,B (EIA) Pos for influenza a H Assessment & Plan - Assessment and Plan (Free Text) Assessment: ACUTE EXAC OF ASTHMA/COPD INFLUENZA ANXIETY Plan: CONTINUE RX ORDERED - Date & Time Date: 06/15/18 Time: 09:04
[2018-06-15] MEDS ORDERED: methylPREDNISolone 60 MG in Sodium Chloride 0.9% 50 ML IVPB SCH (09:45)
[2018-06-15] MEDS: Enoxaparin 40 mg Syringe SC SCH ×2 (11:08→11:19)
[2018-06-15] MEDS: Pantoprazole 40 mg EC Tab PO SCH (11:09)
[2018-06-15] MEDS: Azithromycin 500 MG in Sodium Chloride 0.9% 250 ML IVPB SCH (12:56)
[2018-06-16] MEDS: Albuterol-Ipratrop 3 mg / 0.5 (3 ml) UD INH SCH ×4 (01:09→20:00)
[2018-06-16] MEDS: Promethazine DM 12.5 mg-30 mg/10 ml Syrup PO PRN (01:31)
[2018-06-16] MEDS: Fluticasone-Salmeterol 250-50mcg Diskus IH SCH ×2 (09:37→22:11)
[2018-06-16] MEDS: Enoxaparin 40 mg Syringe SC SCH ×2 (09:38→10:00)
[2018-06-16] MEDS: Pantoprazole 40 mg EC Tab PO SCH (09:39)
[2018-06-16] MEDS: Azithromycin 500 MG in Sodium Chloride 0.9% 250 ML IVPB SCH (09:43)
--- NOTE | 2018-06-16 10:13 | CP.PCM.PN ---
Subjective - Date & Time of Evaluation Date of Evaluation: 06/16/18 Time of Evaluation: 10:13 - Subjective Subjective: SOB GRADUALLY IMPROVING COUGH LESS AFEBRILE Objective - Vital Signs/Intake and Output Vital Signs (last 24 hours): Temp Pulse Resp BP Pulse Ox 98.1 F 90 20 150/73 96 06/16/18 08:40 06/16/18 08:40 06/16/18 08:40 06/16/18 08:40 06/16/18 08:40 - Medications Medications: Current Medications Albuterol/Ipratropium (Duoneb 3 Mg/0.5 Mg (3 Ml) Ud) 3 ml INH RQ6 ARLENE Last Admin: 06/16/18 07:28 Dose: 3 ml Alprazolam (Xanax) 0.25 mg PO Q12 PRN PRN Reason: Anxiety Stop: 06/21/18 23:16 Enoxaparin Sodium (Lovenox) 40 mg SC DAILY ARLENE; Protocol Last Admin: 06/16/18 10:00 Dose: Not Given Azithromycin 500 mg/ Sodium (Chloride) 250 mls @ 250 mls/hr IVPB DAILY ARLENE; Protocol Last Admin: 06/16/18 09:43 Dose: 250 mls/hr Methylprednisolone (Solu-Medrol) 60 mg IV Q8H ARLENE Last Admin: 06/16/18 09:42 Dose: 60 mg Oseltamivir Phosphate (Tamiflu Cap) 75 mg PO BID ARLENE; Protocol Last Admin: 06/16/18 09:40 Dose: 75 mg Pantoprazole Sodium (Protonix Ec Tab) 40 mg PO DAILY ARLENE Last Admin: 06/16/18 09:39 Dose: 40 mg Paroxetine HCl (Paxil) 20 mg PO DAILY ARLENE Last Admin: 06/16/18 09:38 Dose: 20 mg Promethazine HCl/Dextromethorphan (Phenergan Dm Syrup) 10 ml PO Q6 PRN PRN Reason: Cough Last Admin: 06/16/18 01:31 Dose: 10 ml Fluticasone/Salmeterol (Advair Diskus 250/50) 1 puff IH Q12 ARLENE Last Admin: 06/16/18 09:37 Dose: 1 puff Zolpidem Tartrate (Ambien) 5 mg PO HS PRN PRN Reason: Insomnia - Labs Labs: 06/14/18 12:00 06/14/18 12:00 - Constitutional Appears: No Acute Distress - Head Exam Head Exam: ATRAUMATIC, NORMAL INSPECTION, NORMOCEPHALIC - Eye Exam Eye Exam: EOMI, Normal appearance, PERRL Pupil Exam: NORMAL ACCOMODATION, PERRL - ENT Exam ENT Exam: Mucous Membranes Moist, Normal Exam - Neck Exam Neck Exam: Full ROM, Normal Inspection. absent: Lymphadenopathy - Respiratory Exam Respiratory Exam: Decreased Breath Sounds, Prolonged Expiratory Phase, Rales, Wheezes, NORMAL BREATHING PATTERN - Cardiovascular Exam Cardiovascular Exam: REGULAR RHYTHM, +S1, +S2. absent: Murmur - GI/Abdominal Exam GI & Abdominal Exam: Soft, Normal Bowel Sounds. absent: Tenderness - Rectal Exam Rectal Exam: NORMAL INSPECTION - Extremities Exam Extremities Exam: Full ROM, Normal Capillary Refill, Normal Inspection. absent: Joint Swelling, Pedal Edema - Back Exam Back Exam: NORMAL INSPECTION - Neurological Exam Neurological Exam: Alert, Awake, CN II-XII Intact, Normal Gait, Oriented x3 - Psychiatric Exam Psychiatric exam: Normal Affect, Normal Mood - Skin Skin Exam: Dry, Intact, Normal Color, Warm Assessment and Plan - Assessment and Plan (Free Text) Assessment: ASTHMA/COPD EXAC INFLUENZA ANXIETY WITH DEPRESSION Plan: CONTINUE CURRENT RX
[2018-06-17] MEDS: Albuterol-Ipratrop 3 mg / 0.5 (3 ml) UD INH SCH ×4 (02:31→19:16)
--- NOTE | 2018-06-17 09:15 | CP.PCM.PN ---
Subjective - Date & Time of Evaluation Date of Evaluation: 06/17/18 Time of Evaluation: 09:17 - Subjective Subjective: SOB IMPROVING NO CHEST PAINS Objective - Vital Signs/Intake and Output Vital Signs (last 24 hours): Temp Pulse Resp BP Pulse Ox 99.0 F 100 H 20 153/79 H 97 06/17/18 08:07 06/17/18 08:07 06/17/18 08:07 06/17/18 08:07 06/17/18 08:07 - Medications Medications: Current Medications Albuterol/Ipratropium (Duoneb 3 Mg/0.5 Mg (3 Ml) Ud) 3 ml INH RQ6 ARLENE Last Admin: 06/17/18 07:41 Dose: 3 ml Alprazolam (Xanax) 0.25 mg PO Q12 PRN PRN Reason: Anxiety Stop: 06/21/18 23:16 Enoxaparin Sodium (Lovenox) 40 mg SC DAILY ARLENE; Protocol Last Admin: 06/16/18 10:00 Dose: Not Given Azithromycin 500 mg/ Sodium (Chloride) 250 mls @ 250 mls/hr IVPB DAILY ARLENE; Protocol Last Admin: 06/16/18 09:43 Dose: 250 mls/hr Methylprednisolone (Solu-Medrol) 60 mg IV Q8H ARLENE Last Admin: 06/17/18 01:55 Dose: 60 mg Oseltamivir Phosphate (Tamiflu Cap) 75 mg PO BID ARLENE; Protocol Last Admin: 06/16/18 17:01 Dose: 75 mg Pantoprazole Sodium (Protonix Ec Tab) 40 mg PO DAILY ARLENE Last Admin: 06/16/18 09:39 Dose: 40 mg Paroxetine HCl (Paxil) 20 mg PO DAILY ARLENE Last Admin: 06/16/18 09:38 Dose: 20 mg Promethazine HCl/Dextromethorphan (Phenergan Dm Syrup) 10 ml PO Q6 PRN PRN Reason: Cough Last Admin: 06/16/18 01:31 Dose: 10 ml Fluticasone/Salmeterol (Advair Diskus 250/50) 1 puff IH Q12 ARLENE Last Admin: 06/16/18 22:11 Dose: 1 puff Zolpidem Tartrate (Ambien) 5 mg PO HS PRN PRN Reason: Insomnia Last Admin: 06/16/18 22:15 Dose: 5 mg - Labs Labs: 06/14/18 12:00 06/14/18 12:00 - Constitutional Appears: Well - Head Exam Head Exam: ATRAUMATIC, NORMAL INSPECTION, NORMOCEPHALIC - Eye Exam Eye Exam: EOMI, Normal appearance, PERRL Pupil Exam: NORMAL ACCOMODATION, PERRL - ENT Exam ENT Exam: Mucous Membranes Moist, Normal Exam - Neck Exam Neck Exam: Full ROM, Normal Inspection. absent: Lymphadenopathy - Respiratory Exam Respiratory Exam: NORMAL BREATHING PATTERN - Cardiovascular Exam Cardiovascular Exam: REGULAR RHYTHM, +S1, +S2. absent: Murmur - GI/Abdominal Exam GI & Abdominal Exam: Soft, Normal Bowel Sounds. absent: Tenderness - Rectal Exam Rectal Exam: NORMAL INSPECTION - Extremities Exam Extremities Exam: Full ROM, Normal Capillary Refill, Normal Inspection. absent: Joint Swelling, Pedal Edema - Back Exam Back Exam: NORMAL INSPECTION - Neurological Exam Neurological Exam: Alert, Awake, CN II-XII Intact, Normal Gait, Oriented x3 - Psychiatric Exam Psychiatric exam: Normal Affect, Normal Mood - Skin Skin Exam: Dry, Intact, Normal Color, Warm Assessment and Plan - Assessment and Plan (Free Text) Assessment: COPD/ASTHMA EXAC--IMPROVING FLU Plan: TAPER STEROIDS D/C IN AM IF STABLE
[2018-06-17] MEDS: Pantoprazole 40 mg EC Tab PO SCH (10:00)
[2018-06-17] MEDS: Fluticasone-Salmeterol 250-50mcg Diskus IH SCH ×2 (10:01→21:34)
[2018-06-17] MEDS: Enoxaparin 40 mg Syringe SC SCH (10:02)
[2018-06-17] MEDS: Azithromycin 500 MG in Sodium Chloride 0.9% 250 ML IVPB SCH (10:06)
[2018-06-17] MEDS: MethylPREDNISolone 40 mg Vial IV SCH ×2 (11:45→21:35)
[2018-06-18] MEDS: Albuterol-Ipratrop 3 mg / 0.5 (3 ml) UD INH SCH ×3 (01:14→13:42)
[2018-06-18 08:25] VITALS: BP 132/74; PULSE 88; RESP 20; TEMP 98.7; O2SAT 95
[2018-06-18] MEDS: Fluticasone-Salmeterol 250-50mcg Diskus IH SCH (09:43)
[2018-06-18] MEDS: Enoxaparin 40 mg Syringe SC SCH (09:43)
[2018-06-18] MEDS: Azithromycin 500 MG in Sodium Chloride 0.9% 250 ML IVPB SCH (09:44)
[2018-06-18] MEDS: Pantoprazole 40 mg EC Tab PO SCH (09:44)
[2018-06-18] MEDS: MethylPREDNISolone 40 mg Vial IV SCH (09:44)
--- NOTE | 2018-06-18 13:26 | CP.PCM.DIS ---
Provider - Provider Date of Admission: 06/14/18 14:08 Attending physician: Raymond Zaldivar MD Time Spent in preparation of Discharge (in minutes): 30 Diagnosis - Discharge Diagnosis (1) COPD exacerbation Status: Acute Comment: SOB RESOLVED. WILL CONTINUE INHALED BRONCHODILATORS AND ORAL STEROIDS. FOLLOW UP WITH DR ZALDIVAR (2) Influenza Status: Acute Comment: TREATMENT COMPLETED WITH TAMIFLU (3) Depression with anxiety Status: Acute Comment: CONTINUE PAXIL AND XANAX Hospital Course - Lab Results Lab Results: Most Recent Lab Values WBC 7.4 K/uL (4.8-10.8) 06/14/18 12:00 RBC 4.28 Mil/uL (3.80-5.20) 06/14/18 12:00 Hgb 13.3 g/dL (12.0-16.0) 06/14/18 12:00 Hct 39.8 % (34.0-47.0) 06/14/18 12:00 MCV 93.2 fl (81.0-99.0) 06/14/18 12:00 MCH 31.0 pg (27.0-31.0) 06/14/18 12:00 MCHC 33.3 g/dL (33.0-37.0) 06/14/18 12:00 RDW 14.3 % (11.5-14.5) 06/14/18 12:00 Plt Count 288 K/uL (130-400) 06/14/18 12:00 MPV 7.5 fl (7.2-11.7) 06/14/18 12:00 Neut % (Auto) 49.3 % (50.0-75.0) L 06/14/18 12:00 Lymph % (Auto) 33.4 % (20.0-40.0) 06/14/18 12:00 [place] % (Auto) 7.8 % (0.0-10.0) 06/14/18 12:00 Eos % (Auto) 8.9 % (0.0-4.0) H 06/14/18 12:00 Baso % (Auto) 0.6 % (0.0-2.0) 06/14/18 12:00 Neut # (Auto) 3.6 K/uL (1.8-7.0) 06/14/18 12:00 Lymph # (Auto) 2.5 K/uL (1.0-4.3) 06/14/18 12:00 [place] # (Auto) 0.6 K/uL (0.0-0.8) 06/14/18 12:00 Eos # (Auto) 0.7 K/uL (0.0-0.7) 06/14/18 12:00 Baso # (Auto) 0.0 K/uL (0.0-0.2) 06/14/18 12:00 Sodium 139 mmol/l (132-148) 06/14/18 12:00 Potassium 4.1 MMOL/L (3.6-5.0) 06/14/18 12:00 Chloride 104 mmol/L (98-107) 06/14/18 12:00 Carbon Dioxide 28 mmol/L (22-30) 06/14/18 12:00 Anion Gap 11 (10-20) 06/14/18 12:00 BUN 10 mg/dl (7-17) 06/14/18 12:00 Creatinine 0.7 mg/dl (0.7-1.2) 06/14/18 12:00 Est GFR ( Amer) > 60 06/14/18 12:00 Est GFR (Non-Af Amer) > 60 06/14/18 12:00 Random Glucose 89 mg/dL (65-105) 06/14/18 12:00 Calcium 9.5 mg/dL (8.4-10.2) 06/14/18 12:00 Troponin I < 0.0120 ng/mL (0.00-0.120) 06/14/18 12:00 NT-Pro-B Natriuret Pep 47.8 pg/ml (0-900) 06/14/18 12:00 Influenza Typ A,B (EIA) Pos for influenza a (NEGATIVE) H 06/14/18 13:10 Discharge Exam - Head Exam Head Exam: ATRAUMATIC, NORMAL INSPECTION, NORMOCEPHALIC Discharge Plan - Follow Up Plan Condition: FAIR Disposition: HOME/ ROUTINE Instructions: Flu, Adult (DC), Exacerbation of COPD (DC) Additional Instructions: follow up with primary MD 1 week Referrals: Raymond Zaldivar MD [Family Provider] -
== END 2018-06-18 15:05 | disposition home or self-care (01) | DRG 191 ==
LOC: H.ER 10:12 → H.ERHOLD 14:08 → H.MEDSURG1 21:25
PROVIDERS: ADMIT Internal Medicine Pulmonary Disease; ATTEND Internal Medicine Pulmonary Disease
PROC: 3E0F73Z Introduction of Anti-inflammatory into Respiratory Tract, Via Natural or Artificial Opening (ICD-10-PCS; principal; 2018-06-14)
DX: J44.1 Chronic obstructive pulmonary disease with (acute) exacerbation (principal); J45.901 Unspecified asthma with (acute) exacerbation; J11.1 Influenza due to unidentified influenza virus with other respiratory manifestations; I10 Essential (primary) hypertension; F41.8 Other specified anxiety disorders; Z87.01 Personal history of pneumonia (recurrent)

== ENCOUNTER 2018-07-21 18:46 | Emergency (ER) | payer OTHER, MEDICARE ==
[2018-07-21 18:47] VITALS: BMI 29.6
[2018-07-21] MEDS ORDERED: Bacitracin 500 Units/gm Oint Foilpak UD TOP STA (19:38)
[2018-07-21] MEDS ORDERED: Silver Sulfadiazine 1% CREAM (50 gm) TOP STA (19:41)
[2018-07-21] MEDS ORDERED: Silver Sulfadiazine 1% CREAM (50 gm) ONE (19:59)
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
[2018-07-21 22:39] VITALS: BP 115/70; PULSE 72; RESP 20; TEMP 98.5
[2018-07-22 03:28] VITALS: O2SAT 97
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
== END 2018-07-21 22:37 | disposition home or self-care (01) ==
LOC: H.ER 18:46 → SUPCPDRO 18:46 → H.ER 22:37
DX: M79.18 Myalgia, other site (principal); S39.012A Strain of muscle, fascia and tendon of lower back, initial encounter; V43.52XA Car driver injured in collision with other type car in traffic accident, initial encounter; Y92.410 Unspecified street and highway as the place of occurrence of the external cause

== ENCOUNTER 2018-08-29 07:32 | Emergency (ER) | payer MEDICARE ==
[2018-08-29 07:43] VITALS: BMI 30.2
[2018-08-29] MEDS ORDERED: Albuterol-Ipratrop 3 mg / 0.5 (3 ml) UD ONE ×2 (08:46→11:41)
--- NOTE | 2018-08-29 08:59 | ED PDOC ---
HPI: SOB/CHF/COPD Time Seen by Provider: 08/29/18 07:51 Chief Complaint (Nursing): Shortness Of Breath Chief Complaint (Provider): Shortness Of Breath History Per: Patient History/Exam Limitations: no limitations Onset/Duration Of Symptoms: Days (x5) Current Symptoms Are (Timing): Still Present Additional Complaint(s): 68 year old female with medical history of asthma, COPD, HTN, and pneumonia, presents to the emergency department with a complaint of shortness of breath associated with productive cough of clear sputum and chest tightness for the past 5 days. She has been taking nebulizer treatments with minimal relief. She denies any fever, chills, or chest pain. Past Medical History Reviewed: Historical Data, Nursing Documentation, Vital Signs Vital Signs: Last Vital Signs Temp 97 F L 08/29/18 07:41 Pulse 90 08/29/18 07:41 Resp BP 126/76 08/29/18 07:41 Pulse Ox 94 L 08/29/18 07:41 Primary Care Provider: Raymond Sosa I - Medical History PMH: Anxiety, Arthritis, Asthma, Back Problems, Bronchitis, COPD, Depression, HTN, Pneumonia Denies: Diabetes, HIV, Hypercholesterolemia, Chronic Kidney Disease - Surgical History Surgical History: - Family History Family History: States: Unknown Family Hx - Immunization History Hx Tetanus Toxoid Vaccination: No Hx Influenza Vaccination: Yes Hx Pneumococcal Vaccination: No - Home Medications Home Medications: Ambulatory Orders Medication Instructions Recorded ALPRAZolam [Xanax] 0.25 mg PO Q12 PRN #10 tab 09/27/15 Fluticasone/Salmeterol 250/50 1 puff IH Q12 05/13/17 [Advair Diskus 250/50] Albuterol Sulfate [Ventolin Hfa] 2 puff IH Q6 PRN 06/14/18 Cholecalciferol [Vitamin D 1000 IU] 1,000 unit PO DAILY 06/14/18 PARoxetine [Paxil] 20 mg PO DAILY 06/14/18 Zolpidem [Ambien] 5 mg PO HS PRN 06/14/18 Azithromycin [Zithromax] 250 mg PO DAILY #6 tab 06/18/18 Promethazine DM [Phenergan DM 10 ml PO PRN PRN 7 Days #1 dose 06/18/18 Syrup] Cyclobenzaprine [Cyclobenzaprine 10 mg PO BID #15 tab 07/21/18 HCl] Albuterol 0.083% [Albuterol 0.083% 3 ml IH Q6H PRN #30 neb 08/29/18 Inhal Mague (2.5 mg/3 ml) UD] Albuterol HFA [Ventolin HFA 90 2 puff IH [id number] PRN #1 bottle 08/29/18 mcg/actuation (8 g)] Prednisone 50 mg PO DAILY #4 tab 08/29/18 - Allergies Allergies/Adverse Reactions: Allergies Allergy/AdvReac Type Severity Reaction Status Date / Time ceftriaxone sodium Allergy RASH Verified 04/28/18 08:19 [From Rocephin] moxifloxacin HCl Allergy RASH Verified 04/28/18 08:19 [From Avelox] Review of Systems ROS Statement: Except As Marked, All Systems Reviewed And Found Negative Constitutional: Negative for: Fever, Chills Cardiovascular: Negative for: Chest Pain Respiratory: Positive for: Cough, Shortness of Breath, Sputum, Other (chest tightness) Physical Exam - Reviewed Nursing Documentation Reviewed: Yes Vital Signs Reviewed: Yes - Physical Exam Appears: Positive for: Non-toxic, No Acute Distress Head Exam: Positive for: ATRAUMATIC, NORMAL INSPECTION, NORMOCEPHALIC Skin: Positive for: Normal Color. Negative for: Pallor Eye Exam: Positive for: Normal appearance, EOMI, PERRL ENT: Positive for: Normal ENT Inspection. Negative for: Pharyngeal Erythema Neck: Positive for: Normal, Supple Cardiovascular/Chest: Positive for: Regular Rate, Rhythm Respiratory: Positive for: Wheezing (expiratory bilaterally) Pulses-Radial (L): 2+ Pulses-Radial (R): 2+ Extremity: Positive for: Normal ROM (upper/lower). Negative for: Pedal Edema Neurological/Psych: Positive for: Awake, Alert, Oriented - Laboratory Results Result Diagrams: 08/29/18 09:50 08/29/18 09:50 - ECG Interpretation Of ECG: SR @ 88, PVC, no ST-T changes. O2 Sat by Pulse Oximetry: 94 (RA) Pulse Ox Interpretation: Normal Medical Decision Making Medical Decision Making: Time: 0855 Initial Plan: * EKG * Labs * CXR * Duoneb INH * Blood culture Time: 1045 --Labs reviewed: (-) significant clinical abnormality. --CXR interpreted by provider: (-) active disease. 12:00 Pt feels better, wheezing resolved. Scribe Attestation: Documented by Alix Montes, acting as a scribe for Marci Garcia MD. Provider Scribe Attestation: All medical record entries made by the Scribe were at my direction and personally dictated by me. I have reviewed the chart and agree that the record accurately reflects my personal performance of the history, physical exam, medical decision making, and the department course for this patient. I have also personally directed, reviewed, and agree with the discharge instructions and disposition. Disposition - Clinical Impression Clinical Impression: Asthma exacerbation - Disposition Disposition: Routine/Home Disposition Time: 12:18 Condition: IMPROVED Additional Instructions: FOLLOW-UP WITH PMD WITHIN 2 DAYS FOR REEVALUATION. Prescriptions: Albuterol HFA [Ventolin HFA 90 mcg/actuation (8 g)] 2 puff IH [id number] PRN #1 bottle PRN Reason: Shortness Of Breath Albuterol 0.083% [Albuterol 0.083% Inhal Mague (2.5 mg/3 ml) UD] 3 ml IH Q6H PRN #30 neb PRN Reason: Shortness Of Breath Prednisone 50 mg PO DAILY #4 tab Instructions: Asthma in Adults Forms: [employer] (Polish)
[2018-08-29] MEDS ORDERED: Albuterol-Ipratrop 3 mg / 0.5 (3 ml) UD INH STA ×3 (09:11→10:48)
[2018-08-29 10:09] LABS: BASO % 0.5 % (0.0-2.0); EOS # 0.3 K/uL (0.0-0.7); HEMOGLOBIN 13.8 g/dL (12.0-16.0); LYMPH # 2.7 K/uL (1.0-4.3); LYMPH % 30.8 % (20.0-40.0); MEAN CORPUSCULAR HEMOGLOBIN 31.1 pg (27.0-31.0); MEAN PLATELET VOLUME 7.6 fl (7.2-11.7); MONO # 0.7 K/uL (0.0-0.8); MONO % 7.8 % (0.0-10.0); NEUT % 57.9 % (50.0-75.0); NRBC % 0.1 % (0.0-0.0); RBC 4.44 Mil/uL (3.80-5.20); RED CELL DISTRIBUTION WIDTH 14.1 % (11.5-14.5); WHITE BLOOD COUNT 8.7 K/uL (4.8-10.8)
[2018-08-29 10:12] LABS: URINE BILIRUBIN NEGATIVE (NEGATIVE); URINE BLOOD NEGATIVE (NEGATIVE); URINE CLARITY CLEAR (Clear); URINE COLOR YELLOW (YELLOW); URINE GLUCOSE (UA) NEG (NEGATIVE); URINE LEUKOCYTE ESTERASE NEG Leu/uL (Negative); URINE PROTEIN NEGATIVE (NEGATIVE); URINE UROBILINOGEN 0.2-1.0 mg/dL (0.2-1.0)
[2018-08-29 10:17] LABS: ALB/GLOB RATIO 1.3 (1.0-2.1); ALBUMIN 4.5 g/dL (3.5-5.0); ALT/SGPT 15 U/L (9-52); AST/SGOT 25 U/L (14-36); BLOOD UREA NITROGEN 14 mg/dl (7-17); CALCIUM 9.2 mg/dL (8.4-10.2); GFR NON-AFRICAN AMERICAN > 60
[2018-08-29 10:21] LABS: PROTHROMBIN TIME 10.9 Seconds (9.8-13.1)
[2018-08-29 10:24] LABS: PARTIAL THROMBOPLASTIN TIME 24.4 Seconds (25.6-37.1)
[2018-08-29 13:26] VITALS: BP 140/77; PULSE 84; RESP 18; TEMP 98; O2SAT 98
--- NOTE | 2018-08-29 17:01 | RAD ---
Date of service: 08/29/2018 HISTORY: SOB COMPARISON: 06/14/2018 TECHNIQUE: Chest PA and lateral views FINDINGS: LUNGS: No active pulmonary disease. PLEURA: No significant pleural effusion identified. No pneumothorax apparent. CARDIOVASCULAR: No aortic atherosclerotic calcification present. Normal cardiac size. No pulmonary vascular congestion. OSSEOUS STRUCTURES: No significant abnormalities. VISUALIZED UPPER ABDOMEN: Normal. OTHER FINDINGS: None. IMPRESSION: No active disease.
--- NOTE | 2018-08-29 23:27 | CARD ---
APPROVED REPORT Date of service: 08/29/2018 EKG Measurement Heart [id number] <Conclusion> Sinus rhythm with occasional premature ventricular complexes Otherwise normal ECG
== END 2018-08-29 13:20 | disposition home or self-care (01) ==
LOC: H.ER 07:32
DX: J45.901 Unspecified asthma with (acute) exacerbation (principal); Z86.59 Personal history of other mental and behavioral disorders; I10 Essential (primary) hypertension; J44.9 Chronic obstructive pulmonary disease, unspecified; Z79.899 Other long term (current) drug therapy; Z88.1 Allergy status to other antibiotic agents
CPT/HCPCS: 71046; 80053; 81003; 84484; 85025; 85610; 85730; 87040; 93005; 96374; 99284; J2930